=== PATIENT | male | born 1955 | race Caucasian/White ===

== ENCOUNTER → 2016-06-02 | Outpatient (CLI) | payer BC ==
[2016-06-02 07:39] LABS: ALT 31 U/L (21-72); AST 24 U/L (17-59); Alkaline Phosphatase 58 U/L (38-126); Anion Gap 12 mmol/L; Blood Urea Nitrogen 20 mg/dL (9-20); Calcium 9.4 mg/dL (8.4-10.2); Carbon Dioxide 28 mmol/L (22-30); Chloride 103 mmol/L (98-107); Cholesterol 116 mg/dL (<200); Glucose 55 mg/dL (74-99); HDL Cholesterol 35 mg/dL (40-60); Non-African American GFR(MDRD) >60 (>60 ml/min/1.73 sqM); Sodium 143 mmol/L (137-145); Total Bilirubin 0.8 mg/dL (0.2-1.3); Total Protein 7.2 g/dL (6.3-8.2); Triglycerides 75 mg/dL (<150)
[2016-06-02 12:31] LABS: Hemoglobin A1C 6.3 % (4.2-6.1)
== END | disposition home or self-care (01) ==
LOC: LABWHC1 06:41
PROVIDERS: ATTEND Internal Medicine
DX: E11.9 Type 2 diabetes mellitus without complications (principal); E78.5 Hyperlipidemia, unspecified; I10 Essential (primary) hypertension
CPT/HCPCS: 36415; 80053; 80061; 82306; 83036

== ENCOUNTER → 2016-08-25 | Outpatient (CLI) | payer BC ==
[2016-08-25 07:53] LABS: Anion Gap 10 mmol/L; Blood Urea Nitrogen 29 mg/dL (9-20); Calcium 9.7 mg/dL (8.4-10.2); Carbon Dioxide 27 mmol/L (22-30); Chloride 106 mmol/L (98-107); Glucose 122 mg/dL (74-99); Non-African American GFR(MDRD) >60 (>60 ml/min/1.73 sqM); Potassium 4.2 mmol/L (3.5-5.1); Sodium 143 mmol/L (137-145)
[2016-08-25 10:38] LABS: Hemoglobin A1C 6.6 % (4.2-6.1)
[2016-08-25 10:41] LABS: Prostate Specific Antigen 1.73 ng/mL (0.00-4.00)
== END | disposition home or self-care (01) ==
LOC: LABWHC1 06:57
PROVIDERS: ATTEND Internal Medicine
DX: Z00.00 Encounter for general adult medical examination without abnormal findings (principal); E11.9 Type 2 diabetes mellitus without complications; N40.0 Benign prostatic hyperplasia without lower urinary tract symptoms; E87.8 Other disorders of electrolyte and fluid balance, not elsewhere classified
CPT/HCPCS: 36415; 80048; 83036; 84153

== ENCOUNTER 2016-12-14 14:13 | Emergency (ER) | payer BC ==
[2016-12-14 14:18] VITALS: BP 166/72; PULSE 60; RESP 20; TEMP 98.1
--- NOTE | 2016-12-14 14:38 | ED ---
Skin/Abscess/FB HPI - General Chief complaint: Skin/Abscess/Foreign Body Stated complaint: blisters on feet/diabetic Source: patient Mode of arrival: ambulatory Limitations: no limitations - History of Present Illness Initial comments: Patient is a 61-year-old male who presents for evaluation for 2 blisters on his right first and second digits of his foot. Past medical history as below. [place] He states that he was walking/hiking more than he typically does. He is also in the [place]. States that there is a lot of sand intravenous toes of his water shoes that he was wearing. Last night he noticed blisters on his right foot first and second digits. There are bleeding. The blister seem to have ruptured. He came home today and came in for evaluation. He has a history of recurrent diabetic foot ulcers. 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 He denies any redness or real swelling to the right foot. No pain with palpation of the blisters of the ankle. He also denies any systemic symptoms. No fevers, chills, URI symptoms, shortness breath, cough, chest pain, change in appetite, nausea, vomiting, diarrhea, abdominal pain, pain or burning with urination. He has supplies for diabetic foot ulcers at home. He also has a walking boot which she has been wearing today. - Related Data Home Medications Medication Instructions Recorded Confirmed Lisinopril/Hydrochlorothiazide 1 tab PO DAILY 10/26/14 03/03/16 [Lisinopril-Hctz 20-12.5 mg Tab] Rosuvastatin [Crestor] 10 mg PO HS 10/26/14 03/03/16 metFORMIN HCL [Metformin HCl] 850 mg PO DAILY 10/26/14 03/03/16 Ascorbic Acid [Vitamin C] 1,000 mg PO DAILY 10/27/14 03/03/16 Cholecalciferol [Vitamin D3] 5,000 unit PO DAILY 10/27/14 03/03/16 Insulin Aspart [NovoLOG Flexpen] See Protocol SQ HS 10/27/14 03/03/16 Insulin Glargine [Lantus] 20 unit SQ BID 10/27/14 03/03/16 Vitamin E (Dl,Tocopheryl Acet) 400 unit PO DAILY 10/27/14 03/03/16 [Vitamin E] Insulin Aspart [NovoLOG Flexpen] 10 units SQ AC-TID 11/01/14 03/03/16 sitaGLIPtin [Januvia] 100 mg PO DAILY 12/21/14 03/03/16 Ascorbic Acid [Vitamin C] 500 mg PO HS 11/26/15 03/03/16 Aspirin EC [Ecotrin Low Dose] 81 mg PO DAILY 11/26/15 03/03/16 Fish Oil/Dha/Epa [Fish Oil 1,200 1 cap PO DAILY 11/26/15 03/03/16 mg Fish Oil] Previous Rx's Medication Instructions Recorded Ibuprofen [Motrin] 400 mg PO Q6HR PRN #0 tab 10/30/14 amLODIPine [Norvasc] 5 mg PO BID #60 tab 10/30/14 Cephalexin [Keflex] 500 mg PO Q6HR #56 cap 12/14/16 Sulfamethox-Tmp 800-160Mg [Bactrim 1 tab PO Q12HR #28 tab 12/14/16 DS 800-160 mg] Allergies Allergy/AdvReac Type Severity Reaction Status Date / Time No Known Allergies Allergy Verified 12/14/16 14:18 Review of Systems ROS Statement: Those systems with pertinent positive or pertinent negative responses have been documented in the HPI. ROS Other: All systems not noted in ROS Statement are negative. Past Medical History Past Medical History: Diabetes Mellitus, Hyperlipidemia, Hypertension Additional Past Medical History / Comment(s): Diabetic neuropathy, sleep apnea, central tremors, carpal tunnel bilateral hands chronic wounds to the lower extremities History of Any Multi-Drug Resistant Organisms: MRSA Date of last positivie culture/infection: 2012 MDRO Source:: R toe Past Surgical History: Orthopedic Surgery Additional Past Surgical History / Comment(s): left knee arthroscopically, piece of bone taken out of left 2nd toe for biopsy, rt foot callus removal, multiple debridements done to the lower extremity ulcers, Achilles tendon lengthening September [address] Alicea Past Anesthesia/Blood Transfusion Reactions: No Reported Reaction Past Psychological History: No Psychological Hx Reported Smoking Status: Former smoker Past Alcohol Use History: None Reported Past Drug Use History: None Reported - Past Family History Mother History Unknown: Yes Family Medical History: Cancer Additional Family Medical History / Comment(s): breast and colon ca Father History Unknown: Yes Family Medical History: Cancer Additional Family Medical History / Comment(s): stomach General Exam Limitations: no limitations General appearance: alert, in no apparent distress, other (Nontoxic appearing) Head exam: Present: atraumatic, normocephalic, normal inspection Eye exam: Present: normal appearance, PERRL, EOMI. Absent: scleral icterus, conjunctival injection, periorbital swelling ENT exam: Present: normal exam, mucous membranes moist Neck exam: Present: normal inspection. Absent: tenderness, meningismus, lymphadenopathy Respiratory exam: Present: normal lung sounds bilaterally. Absent: respiratory distress, wheezes, rales, rhonchi, stridor Cardiovascular Exam: Present: regular rate, normal rhythm, normal heart sounds. Absent: systolic murmur, diastolic murmur, rubs, gallop, clicks GI/Abdominal exam: Present: soft, normal bowel sounds. Absent: distended, tenderness, guarding, rebound, rigid Extremities exam: Present: normal inspection, full ROM, normal capillary refill. Absent: tenderness, pedal edema, joint swelling, calf tenderness Back exam: Present: normal inspection Neurological exam: Present: alert, oriented X3, CN II-XII intact Psychiatric exam: Present: normal affect, normal mood Skin exam: Present: warm, dry, intact, normal color, other (2 blisters on the dorsal aspect of his right first and second digits on the right foot. No surrounding cellulitis. Well pigmented tissue of the first and second digit. No purulent drainage.). Absent: rash Course Vital Signs 12/14/16 14:15 Temperature 98.1 F Pulse Rate 60 Respiratory 20 Rate Blood Pressure 166/72 O2 Sat by Pulse 98 Oximetry Medical Decision Making - Medical Decision Making 1425: Patient is a 61-year-old male who presents for evaluation for 2 blisters on his right foot. They are over the first and second digits. There is no surrounding cellulitis or purulent drainage from the blisters at this time. There is some loose skin that can cover the blister at this time. Distal pulses are intact. There are no systemic signs of infection. Had a lengthy discussion with the patient and the patient's at bedside. They are well prepared for diabetic foot ulcers at home and have a variety of antibacterial creams and non-adhesive bandages. They also are establish a wound care clinic. I offered blood work and blood cultures but patient refused. Comfortable with discharge home with both Keflex and Bactrim which she is well tolerated in the past. Encouraged yogurt or probiotic. Also encouraged tight glycemic control. Placed a nonadhesive bandage with bacitracin over the blisters. Wrapped. Placed in a walking boot. Will call wound care clinic tomorrow for reevaluation and follow-up. Discussed signs and symptoms on when to return to emergency department for further evaluation. Voiced understanding. Also recommended re-evaluation of his blood pressure as it was noted to be elevated. May need further titration of medications. Disposition Clinical Impression: Diabetic foot ulcer, Hypertension Disposition: HOME SELF-CARE Condition: Good Instructions: Diabetic Foot Ulcers (ED) Prescriptions: Cephalexin [Keflex] 500 mg PO Q6HR #56 cap Sulfamethox-Tmp 800-160Mg [Bactrim DS 800-160 mg] 1 tab PO Q12HR #28 tab Referrals: Nick Calvillo MD [Primary Care Provider] - 1-2 days Arnaldo Al MD [STAFF PHYSICIAN] - 1-2 days
== END 2016-12-14 14:49 | disposition home or self-care (01) ==
LOC: EC 14:13
DX: E11.621 Type 2 diabetes mellitus with foot ulcer (principal); L97.519 Non-pressure chronic ulcer of other part of right foot with unspecified severity; E11.40 Type 2 diabetes mellitus with diabetic neuropathy, unspecified; I10 Essential (primary) hypertension; Z87.891 Personal history of nicotine dependence; Z86.14 Personal history of Methicillin resistant Staphylococcus aureus infection; Z79.4 Long term (current) use of insulin; Z79.899 Other long term (current) drug therapy
CPT/HCPCS: 99283

== ENCOUNTER → 2016-12-15 | Outpatient (CLI) | payer BC ==
[2016-12-15 12:18] LABS: Hemoglobin A1C 6.2 % (4.2-6.1)
== END | disposition home or self-care (01) ==
LOC: LABWHC1 06:56
PROVIDERS: ATTEND Internal Medicine
DX: E11.9 Type 2 diabetes mellitus without complications (principal)
CPT/HCPCS: 36415; 82947; 83036

== ENCOUNTER → 2017-09-01 | Outpatient (CLI) | payer BC ==
[2017-09-01 07:19] LABS: Basophils % (A) 0 %; Eosinophils # (A) 0.1 k/uL (0-0.7); Eosinophils % (A) 3 %; HCT 39.9 % (39.0-53.0); HGB 13.8 gm/dL (13.0-17.5); Lymphocytes # (A) 1.2 k/uL (1.0-4.8); Lymphocytes % (A) 29 %; MCH 29.2 pg (25.0-35.0); MCHC 34.6 g/dL (31.0-37.0); MCV 84.4 fL (80.0-100.0); Mean Platelet Volume 7.2; Monocytes # (A) 0.4 k/uL (0-1.0); Monocytes % (A) 9 %; Neutrophils # (A) 2.4 k/uL (1.3-7.7); Neutrophils % (A) 58 %; Platelet Count 144 k/uL (150-450); RBC 4.72 m/uL (4.30-5.90); RDW 13.5 % (11.5-15.5); WBC 4.2 k/uL (3.8-10.6)
[2017-09-01 09:29] LABS: Erythrocyte Sedimentation Rate 13 mm/hr (0-15)
[2017-09-01 10:15] LABS: ALT 23 U/L (21-72); AST 29 U/L (17-59); Albumin 3.9 g/dL (3.5-5.0); Alkaline Phosphatase 60 U/L (38-126); Anion Gap 11 mmol/L; Blood Urea Nitrogen 22 mg/dL (9-20); C Reactive Protein <5.0 mg/L (<10.0); Calcium 9.6 mg/dL (8.4-10.2); Carbon Dioxide 28 mmol/L (22-30); Chloride 102 mmol/L (98-107); Cholesterol 123 mg/dL (<200); Creatine Kinase 483 U/L (55-170); Glucose 92 mg/dL (74-99); HDL Cholesterol 31 mg/dL (40-60); LDL Cholesterol,Calculated 66 mg/dL (0-99); Potassium 4.1 mmol/L (3.5-5.1); Sodium 141 mmol/L (137-145); Total Bilirubin 0.5 mg/dL (0.2-1.3); Total Protein 6.7 g/dL (6.3-8.2); Triglycerides 131 mg/dL (<150)
[2017-09-01 10:40] LABS: Prostate Specific Antigen 2.42 ng/mL (0.00-4.00)
[2017-09-01 15:04] LABS: Hemoglobin A1C 6.8 % (4.0-6.0)
== END | disposition home or self-care (01) ==
LOC: LABWHC1 06:44
PROVIDERS: ATTEND Internal Medicine
DX: E78.5 Hyperlipidemia, unspecified (principal); I10 Essential (primary) hypertension; E66.9 Obesity, unspecified; E55.9 Vitamin D deficiency, unspecified; E11.40 Type 2 diabetes mellitus with diabetic neuropathy, unspecified
CPT/HCPCS: 36415; 80053; 80061; 82306; 82550; 83036; 84153; 84443; 85025; 85652; 86140

== ENCOUNTER → 2017-12-16 | Outpatient (CLI) | payer BC | END | disposition home or self-care (01) | LOC: LABWHC1 06:49 | PROVIDERS: ATTEND Internal Medicine | DX: E11.9 Type 2 diabetes mellitus without complications (principal) | CPT/HCPCS: 36415; 82947; 83036 ==

== ENCOUNTER 2018-02-03 21:35 | Emergency (ER) | payer BC ==
[2018-02-03] MEDS ORDERED: SODIUM CHLORIDE 0.9% 1,000 ML IV STA (23:16)
[2018-02-03] MEDS ORDERED: ONDANSETRON 4 MG/2 ML VIAL IVP STA (23:16)
[2018-02-03] MEDS ORDERED: MAG HYDROX/AL HYDROX/SIMETH 30 ML, HYOSCYAMINE ELIXIR 10 ML, CIMETIDINE HCL 300 MG, LID... PO STA ×4 (23:16)
[2018-02-03 23:38] LABS: Basophils % (A) 0 %; Eosinophils # (A) 0.1 k/uL (0-0.7); Eosinophils % (A) 1 %; HCT 45.5 % (39.0-53.0); Lymphocytes # (A) 1.7 k/uL (1.0-4.8); Lymphocytes % (A) 22 %; MCH 28.5 pg (25.0-35.0); MCV 86.3 fL (80.0-100.0); Mean Platelet Volume 7.7; Monocytes # (A) 0.5 k/uL (0-1.0); Monocytes % (A) 7 %; Neutrophils # (A) 5.3 k/uL (1.3-7.7); Neutrophils % (A) 69 %; Platelet Count 156 k/uL (150-450); RBC 5.27 m/uL (4.30-5.90); RDW 13.8 % (11.5-15.5); WBC 7.6 k/uL (3.8-10.6)
[2018-02-03 23:48] LABS: ALT 27 U/L (21-72); AST 29 U/L (17-59); Albumin 4.3 g/dL (3.5-5.0); Alkaline Phosphatase 95 U/L (38-126); Anion Gap 12 mmol/L; Blood Urea Nitrogen 19 mg/dL (9-20); Carbon Dioxide 28 mmol/L (22-30); Chloride 99 mmol/L (98-107); Glucose 134 mg/dL (74-99); Lipase 58 U/L (23-300); Potassium 3.9 mmol/L (3.5-5.1); Sodium 139 mmol/L (137-145); Total Bilirubin 0.8 mg/dL (0.2-1.3); Total Protein 7.5 g/dL (6.3-8.2)
--- NOTE | 2018-02-03 23:58 | XR ---
EXAMINATION TYPE: XR [facility] DATE OF EXAM: 02/03/2018 COMPARISON: NONE HISTORY: Abdominal pain TECHNIQUE: 2 views upright FINDINGS: There is no sign of intestinal obstruction or pneumoperitoneum. Fecal pattern is normal. Th ere is no sign of a mass. There are no pathologic calcifications over the kidneys. Lung bases are antonia ar of consolidation. IMPRESSION: Nonacute abdomen.
[2018-02-04 00:24] LABS: Appearance,Urine Clear (Clear); Bilirubin,Urine Negative (Negative); Blood,Urine Negative (Negative); Color,Urine Light Yellow; Glucose,Urine (UA) Negative (Negative); Ketones,Urine 2+ (Negative); Leukocyte Esterase,Urine Negative (Negative); Nitrite,Urine Negative (Negative); Protein,Urine Negative (Negative); Urobilinogen,Urine <2.0 mg/dL (<2.0)
--- NOTE | 2018-02-04 01:01 | ED ---
General Adult HPI - General Chief complaint: Abdominal Pain Stated complaint: Abd pain Time Seen by Provider: 02/03/18 22:42 Source: patient Mode of arrival: ambulatory Limitations: no limitations - History of Present Illness Initial comments: Ian is a 62-year-old male presents to the emergency department today for burning epigastric pain. Patient reports he experienced pain similar to this approximately a month ago. He was evaluated by his primary care physician and advised to stop taking naproxen 500 mg twice a day and to start taking omeprazole. Patient reports that he did this for 2 weeks and had significant improvement in his abdominal discomfort. He subsequently followed up with his advised him to resume the naproxen 500 daily. And he stopped the omeprazole. Patient reports that since that time he's had intermittent burning epigastric pain. He reports that today he ate a salad for lunch the head multiple meats including salami and ham on it. He reports that after eating he developed some burning epigastric pain nausea and had 2 episodes of nonbloody nonbilious emesis. Patient returns to the emergency department today for evaluation of burning epigastric abdominal pain. Patient had his routine colonoscopy in the past but never had an EGD. Has no history of any inflammatory or irritable bowel disease. Patient denies any chest pain palpitations shortness of breath diaphoresis lightheadedness. - Related Data Home Medications Medication Instructions Recorded Confirmed metFORMIN HCL [Metformin HCl] 850 mg PO BID 10/26/14 12/14/16 Ascorbic Acid [Vitamin C] 1,000 mg PO DAILY 10/27/14 12/14/16 Cholecalciferol [Vitamin D3] 5,000 unit PO DAILY 10/27/14 12/14/16 Insulin Aspart [NovoLOG Flexpen] See Protocol SQ TID 10/27/14 12/14/16 Vitamin E (Dl,Tocopheryl Acet) 400 unit PO DAILY 10/27/14 12/14/16 [Vitamin E] Insulin Aspart [NovoLOG Flexpen] 10 units SQ AC-TID 11/01/14 12/14/16 sitaGLIPtin [Januvia] 100 mg PO DAILY 12/21/14 12/14/16 Aspirin EC [Ecotrin Low Dose] 81 mg PO DAILY 11/26/15 12/14/16 Hydrochlorothiazide [Hydrodiuril] 12.5 mg PO DAILY 12/14/16 12/14/16 Insulin Glargine,Hum.rec.anlog 25 unit SQ QAM 12/14/16 12/14/16 [Lantus Solostar] Insulin Glargine,Hum.rec.anlog 35 unit SQ HS 12/14/16 12/14/16 [Lantus Solostar] L.acidoph,Paracasei, B.lactis 1 cap PO DAILY 12/14/16 12/14/16 [Probiotic] Lisinopril [Zestril] 20 mg PO DAILY 12/14/16 12/14/16 Naproxen 500 mg PO Q12H 12/14/16 12/14/16 [place]-3 Acid Ethyl Esters [Lovaza] 1 gm PO BID 12/14/16 12/14/16 Primidone [Mysoline] 50 mg PO HS 12/14/16 12/14/16 Previous Rx's Medication Instructions Recorded amLODIPine [Norvasc] 5 mg PO BID #60 tab 10/30/14 Cephalexin [Keflex] 500 mg PO Q6HR #56 cap 12/14/16 Sulfamethox-Tmp 800-160Mg [Bactrim 1 tab PO Q12HR #28 tab 12/14/16 DS 800-160 mg] Pantoprazole Sodium [Protonix] 20 mg PO BID #30 tablet. 02/04/18 Sucralfate [Carafate] 1 gm PO ACHS #1 bottle 02/04/18 Allergies Allergy/AdvReac Type Severity Reaction Status Date / Time No Known Allergies Allergy Verified 02/03/18 21:49 Review of Systems ROS Statement: Those systems with pertinent positive or pertinent negative responses have been documented in the HPI. ROS Other: All systems not noted in ROS Statement are negative. Past Medical History Past Medical History: Diabetes Mellitus, Hyperlipidemia, Hypertension Additional Past Medical History / Comment(s): Diabetic neuropathy, sleep apnea, central tremors, carpal tunnel bilateral hands chronic wounds to the lower extremities History of Any Multi-Drug Resistant Organisms: MRSA Date of last positivie culture/infection: 2012 MDRO Source:: R toe Past Surgical History: Orthopedic Surgery Additional Past Surgical History / Comment(s): left knee arthroscopically, piece of bone taken out of left 2nd toe for biopsy, rt foot callus removal, multiple debridements done to the lower extremity ulcers, Achilles tendon lengthening September [address] Braaksma Past Anesthesia/Blood Transfusion Reactions: No Reported Reaction Past Psychological History: No Psychological Hx Reported Smoking Status: Former smoker Past Alcohol Use History: Occasional Past Drug Use History: None Reported - Past Family History Mother History Unknown: Yes Family Medical History: Cancer Additional Family Medical History / Comment(s): breast and colon ca Father History Unknown: Yes Family Medical History: Cancer Additional Family Medical History / Comment(s): stomach General Exam - General Exam Comments Initial Comments: GENERAL: Patient is well-developed and well-nourished. Patient is nontoxic and well- hydrated and is in no distress. HENT: Normocephalic, Atraumatic. Neck is soft and supple. No significant lymphadenopathy is noted. Oropharynx is clear. Moist mucous membranes. Neck has full range of motion without eliciting any pain. EYES: The sclera were anicteric and conjunctiva were pink and moist. Extraocular movements were intact and pupils were equal round and reactive to light. Eyelids were unremarkable. PULMONARY: Unlabored respirations. Good breath sounds bilaterally. No audible rales rhonchi or wheezing was noted. CARDIOVASCULAR: There is a regular rate and rhythm without any murmurs gallops or rubs. ABDOMEN: Soft and nontender with normal bowel sounds. No right upper quadrant abdominal tenderness SKIN: Skin is clear with no lesions or rashes and otherwise unremarkable. NEUROLOGIC: Patient is alert and oriented x3. Cranial nerves II through XII are grossly intact. Motor and sensory are also intact. Normal speech, volume and content. Symmetrical smile. MUSCULOSKELETAL: Normal extremities with adequate strength and full range of motion. No lower extremity swelling or edema. No calf tenderness. LYMPHATICS: No significant lymphadenopathy is noted PSYCHIATRIC: Normal psychiatric evaluation. Limitations: no limitations Limitations: no limitations Course Vital Signs 02/03/18 02/04/18 21:47 01:16 Temperature 98.4 F 98.5 F Pulse Rate 84 79 Respiratory 18 16 Rate Blood Pressure 154/79 158/80 O2 Sat by Pulse 96 96 Oximetry Medical Decision Making - Medical Decision Making Patient was seen and evaluated history was obtained from the patient and his at bedside patient with a history of apparent irritation or gastritis secondary to NSAID use. Symptoms resolved with discontinuation of NSAIDs in the initiation of omeprazole. Patient reports that he has subsequently started using NSAIDs again stopped using omeprazole and developed the pain. Pain was worse today after eating a fatty meal. Labs and imaging were ordered Labs a baseline KUB x-rays no free air under the diaphragm Patient was given a GI cocktail. He swallowed some of it, reported that it made him vomit. The felt much better afterwards. Results were discussed with the patient. I advised the patient to again discontinue the use of naproxen. I recommended he start Carafate and Protonix twice a day. Patient is were discussed with the patient and his at bedside. As well as dietary modifications including avoidance of fatty, greasy , foods, carbonated beverages or caffeine. I advised the patient to eat multiple small meals throughout the day daily. No large meals. No overdistention of his stomach. 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 All questions pertaining care were answered best my ability, patient was discharged home in stable condition. - Lab Data Result diagrams: 02/03/18 22:00 02/03/18 22:00 Lab Results 02/03/18 02/03/18 02/03/18 Range/Units 22:00 22:00 22:00 WBC 7.6 (3.8-10.6) k/uL RBC 5.27 (4.30-5.90) m/uL Hgb 15.0 (13.0-17.5) gm/dL Hct 45.5 (39.0-53.0) % MCV 86.3 (80.0-100.0) fL MCH 28.5 (25.0-35.0) pg MCHC 33.0 (31.0-37.0) g/dL RDW 13.8 (11.5-15.5) % Plt Count 156 (150-450) k/uL Neutrophils % 69 % Lymphocytes % 22 % Monocytes % 7 % Eosinophils % 1 % Basophils % 0 % Neutrophils # 5.3 (1.3-7.7) k/uL Lymphocytes # 1.7 (1.0-4.8) k/uL Monocytes # 0.5 (0-1.0) k/uL Eosinophils # 0.1 (0-0.7) k/uL Basophils # 0.0 (0-0.2) k/uL Sodium 139 (137-145) mmol/L Potassium 3.9 (3.5-5.1) mmol/L Chloride 99 (98-107) mmol/L Carbon Dioxide 28 (22-30) mmol/L Anion Gap 12 mmol/L BUN 19 (9-20) mg/dL Creatinine 0.85 (0.66-1.25) mg/dL Est GFR (CKD-EPI)AfAm >90 (>60 ml/min/1.73 sqM) Est GFR (CKD-EPI)NonAf >90 (>60 ml/min/1.73 sqM) Glucose 134 H (74-99) mg/dL Plasma Lactic Acid [place] (0.7-2.0) mmol/L Calcium 10.0 (8.4-10.2) mg/dL Total Bilirubin 0.8 (0.2-1.3) mg/dL AST 29 (17-59) U/L ALT 27 (21-72) U/L Alkaline Phosphatase 95 (38-126) U/L Troponin I 0.018 (0.000-0.034) ng/mL Total Protein 7.5 (6.3-8.2) g/dL Albumin 4.3 (3.5-5.0) g/dL Lipase 58 (23-300) U/L Urine Color Urine Appearance (Clear) Urine pH (5.0-8.0) Ur Specific [place] (1.001-1.035) Urine Protein (Negative) Urine Glucose (UA) (Negative) Urine Ketones (Negative) Urine Blood (Negative) Urine Nitrite (Negative) Urine Bilirubin (Negative) Urine Urobilinogen (<2.0) mg/dL Ur Leukocyte Esterase (Negative) 02/03/18 02/04/18 Range/Units 23:34 00:03 WBC (3.8-10.6) k/uL RBC (4.30-5.90) m/uL Hgb (13.0-17.5) gm/dL Hct (39.0-53.0) % MCV (80.0-100.0) fL MCH (25.0-35.0) pg MCHC (31.0-37.0) g/dL RDW (11.5-15.5) % Plt Count (150-450) k/uL Neutrophils % % Lymphocytes % % Monocytes % % Eosinophils % % Basophils % % Neutrophils # (1.3-7.7) k/uL Lymphocytes # (1.0-4.8) k/uL Monocytes # (0-1.0) k/uL Eosinophils # (0-0.7) k/uL Basophils # (0-0.2) k/uL Sodium (137-145) mmol/L Potassium (3.5-5.1) mmol/L Chloride (98-107) mmol/L Carbon Dioxide (22-30) mmol/L Anion Gap mmol/L BUN (9-20) mg/dL Creatinine (0.66-1.25) mg/dL Est GFR (CKD-EPI)AfAm (>60 ml/min/1.73 sqM) Est GFR (CKD-EPI)NonAf (>60 ml/min/1.73 sqM) Glucose (74-99) mg/dL Plasma Lactic Acid [place] 1.0 (0.7-2.0) mmol/L Calcium (8.4-10.2) mg/dL Total Bilirubin (0.2-1.3) mg/dL AST (17-59) U/L ALT (21-72) U/L Alkaline Phosphatase (38-126) U/L Troponin I (0.000-0.034) ng/mL Total Protein (6.3-8.2) g/dL Albumin (3.5-5.0) g/dL Lipase (23-300) U/L Urine Color Light Yellow Urine Appearance Clear (Clear) Urine pH 8.0 (5.0-8.0) Ur Specific [place] 1.010 (1.001-1.035) Urine Protein Negative (Negative) Urine Glucose (UA) Negative (Negative) Urine Ketones 2+ H (Negative) Urine Blood Negative (Negative) Urine Nitrite Negative (Negative) Urine Bilirubin Negative (Negative) Urine Urobilinogen <2.0 (<2.0) mg/dL Ur Leukocyte Esterase Negative (Negative) Disposition Clinical Impression: Epigastric abdominal pain Disposition: HOME SELF-CARE Condition: Good Instructions: Abdominal Pain (ED) Additional Instructions: Stop taking naproxen - do not take any anti-inflammatory medications including Aleve, naproxen, aspirin, Motrin, ibuprofen into your evaluated by gastroenterology Your diet should be a bland diet with no greasy or spicy foods, he should eat multiple small meals a day. Avoid overdistention of your stomach Prescriptions: Pantoprazole Sodium [Protonix] 20 mg PO BID #30 tablet. Sucralfate [Carafate] 1 gm PO ACHS #1 bottle Is patient prescribed a controlled substance at d/c from ED?: No Referrals: Nick Calvillo MD [Primary Care Provider] - 1-2 days
[2018-02-04 01:18] VITALS: BP 158/80; PULSE 79; RESP 16; TEMP 98.5
== END 2018-02-04 01:20 | disposition home or self-care (01) ==
LOC: EC 21:35
DX: R10.13 Epigastric pain (principal); R11.2 Nausea with vomiting, unspecified; E78.5 Hyperlipidemia, unspecified; I10 Essential (primary) hypertension; E11.40 Type 2 diabetes mellitus with diabetic neuropathy, unspecified; Z86.14 Personal history of Methicillin resistant Staphylococcus aureus infection; Z87.891 Personal history of nicotine dependence; Z98.890 Other specified postprocedural states; Z79.1 Long term (current) use of non-steroidal anti-inflammatories (NSAID); Z79.4 Long term (current) use of insulin; Z79.82 Long term (current) use of aspirin; Z79.899 Other long term (current) drug therapy
CPT/HCPCS: 36415; 74018; 80053; 81003; 83605; 83690; 84484; 85025; 96361; 96374; 99284

== ENCOUNTER → 2018-04-28 | Outpatient (CLI) | payer BC ==
[2018-04-28 16:13] LABS: Hemoglobin A1C 7.2 % (4.0-6.0)
== END | disposition home or self-care (01) ==
LOC: LABWHC1 07:06
PROVIDERS: ATTEND Internal Medicine
DX: E11.9 Type 2 diabetes mellitus without complications (principal)
CPT/HCPCS: 36415; 82947; 83036

== ENCOUNTER → 2018-09-08 | Outpatient (CLI) | payer BC ==
[2018-09-08 07:28] LABS: Basophils % (A) 0 %; Eosinophils # (A) 0.2 k/uL (0-0.7); Eosinophils % (A) 4 %; HCT 40.7 % (39.0-53.0); HGB 14.1 gm/dL (13.0-17.5); Lymphocytes # (A) 1.4 k/uL (1.0-4.8); Lymphocytes % (A) 30 %; MCHC 34.6 g/dL (31.0-37.0); MCV 86.8 fL (80.0-100.0); Mean Platelet Volume 7.4; Monocytes # (A) 0.3 k/uL (0-1.0); Monocytes % (A) 7 %; Neutrophils # (A) 2.6 k/uL (1.3-7.7); Neutrophils % (A) 57 %; Platelet Count 135 k/uL (150-450); RBC 4.69 m/uL (4.30-5.90); RDW 13.6 % (11.5-15.5); WBC 4.6 k/uL (3.8-10.6)
[2018-09-08 09:14] LABS: Erythrocyte Sedimentation Rate 11 mm/hr (0-15)
[2018-09-08 12:54] LABS: Calcium 9.2 mg/dL (8.7-10.3); Carbon Dioxide 30.1 mmol/L (21.6-31.8); Chloride 102 mmol/L (96-109); Creatine Kinase 209 U/L (35-257); Glucose 193 mg/dL (70-110); Potassium 4.1 mmol/L (3.5-5.5); Sodium 144 mmol/L (135-145); Total Protein 6.2 g/dL (6.2-8.2)
[2018-09-08 12:55] LABS: ALT 24 U/L (10-49); AST 25 U/L (14-35); Albumin/Globulin Ratio 1.95 (1.60-3.17); Alkaline Phosphatase 69 U/L (41-126); C Reactive Protein <0.4 mg/dL (0.0-0.8); Cholesterol 120 mg/dL (0-200); Globulin 2.1 g/dL (1.6-3.3); LDL Cholesterol,Calculated 61.4 mg/dL (0.0-131.0); Total Bilirubin 0.6 mg/dL (0.3-1.2)
== END | disposition home or self-care (01) ==
LOC: LABWHC1 06:57
PROVIDERS: ATTEND Internal Medicine
DX: N40.0 Benign prostatic hyperplasia without lower urinary tract symptoms (principal); E11.9 Type 2 diabetes mellitus without complications; E78.5 Hyperlipidemia, unspecified; I10 Essential (primary) hypertension; E66.9 Obesity, unspecified; E55.9 Vitamin D deficiency, unspecified
CPT/HCPCS: 36415; 80053; 80061; 82306; 82550; 83036; 84153; 84443; 85025; 85652; 86140

== ENCOUNTER 2018-10-11 17:00 | Inpatient (IN) | payer BC ==
[2018-10-11] MEDS ORDERED: VANCOMYCIN 2,000 MG in SODIUM CHLORIDE 0.9% 500 ML 500 ML IVPB STA (18:59)
--- NOTE | 2018-10-11 19:01 | ED ---
General Adult HPI - General Chief complaint: Wound/Laceration Stated complaint: Foot infection Time Seen by Provider: 10/11/18 18:20 Source: patient Mode of arrival: wheelchair Limitations: no limitations - History of Present Illness Initial comments: Dictation was produced using [employer] dictation software. please excuse any grammatical, word or spelling errors. Chief Complaint: 62-year-old male with chronic lower extremity ulcers 61 physician for worsening wounds. History of Present Illness: Patient is 62-year-old male multiple comorbidities presents with instruction by customs compliance specialist come to the emergency dep artment to be admitted with IV antibiotics. Patient has been following up with one specialist Dr. Al for the last couple weeks. He was evaluated at the clinic today told to come to the emergency department for concerns of worsening wound. Patient states that his wound has not been healing. He has history of diabetic foot ulcers. She also complains of some mild right ankle pain. States that it feels painful when he walks. Patient denies any constitutional symptoms. The ROS documented in this emergency department record has been reviewed and confirmed by me. Those systems with pertinent positive or negative responses have been documented in the HPI. All other systems are other negative and/or noncontributory. PHYSICAL EXAM: General Impression: Alert and oriented x3, not in acute distress HEENT: Normocephalic atraumatic, extra-ocular movements intact, pupils equal and reactive to light bilaterally, mucous membranes moist. Cardiovascular: Heart regular rate and rhythm, S1&S2 audible, no murmurs, rubs or gallops Chest: Lungs clear to auscultation bilaterally, no rhonchi, no wheeze, no rales Abdomen: Bowel sounds present, abdomen soft, non-tender, non-distended, no orga nomegaly Musculoskeletal: Pulses present and equal in all extremities, no peripheral edema Motor: no focal deficits noted Neurological: CN II-XII grossly intact, no focal motor or sensory deficits noted Skin: Bilateral foot wounds. Right foot has a 1 x 1 cm diabetic ulcer. Appears clean dry and intact Without Drainage. There Is Also Another 4 x 2 Cm Wound to the Left Lateral Plantar Surface of the Foot without Any Surrounding Erythema. Patient Has Mild Swelling to the Right Ankle. Psych: Normal affect and mood ED course: 62-year-old male with worsening bilateral foot wounds. He was sent in by his customer success specialist for inpatient admission. Vital signs upon arrival are within acceptable limits. Laboratory evaluation obtained. CBC metabolic panel is unremarkable. Patient's glucose of 103. Lactic acidosis of 2.3. Patient given some intravenous fluids. X-ray was obtained to evaluate for osteomyelitis. There is no signs to suggest osteomyelitis there is however soft tissue swelling around the site of the ulceration. Patient started on vancomycin. Patient be admitted discussed patient case with Dr. Calvillo. Infectious disease and vascular surgery consultation. - Related Data Home Medications Medication Instructions Recorded Confirmed metFORMIN HCL [Metformin HCl] 850 mg PO BID 10/26/14 10/11/18 Ascorbic Acid [Vitamin C] 1,000 mg PO DAILY 10/27/14 10/11/18 Cholecalciferol [Vitamin D3 (25 5,000 unit PO DAILY 10/27/14 10/11/18 Mcg = 1000 Iu)] Insulin Aspart [NovoLOG Flexpen] See Protocol SQ TID 10/27/14 10/11/18 Vitamin E (Dl,Tocopheryl Acet) 400 unit PO DAILY 10/27/14 10/11/18 [Vitamin E] Insulin Aspart [NovoLOG Flexpen] 10 units SQ AC-TID 11/01/14 10/11/18 Hydrochlorothiazide [Hydrodiuril] 12.5 mg PO DAILY 12/14/16 10/11/18 Insulin Glargine,Hum.rec.anlog 25 unit SQ QAM 12/14/16 10/11/18 [Lantus Solostar] Insulin Glargine,Hum.rec.anlog 35 unit SQ HS 12/14/16 10/11/18 [Lantus Solostar] Lisinopril [Zestril] 20 mg PO DAILY 12/14/16 10/11/18 [place]-3 Acid Ethyl Esters [Lovaza] 1 gm PO BID 12/14/16 10/11/18 Atorvastatin [Lipitor] 10 mg PO HS 10/11/18 10/11/18 Primidone [Mysoline] 75 mg PO HS 10/11/18 10/11/18 Previous Rx's Medication Instructions Recorded Pantoprazole Sodium [Protonix] 20 mg PO BID #30 tablet. 02/04/18 Allergies Allergy/AdvReac Type Severity Reaction Status Date / Time No Known Allergies Allergy Verified 10/11/18 18:24 Review of Systems ROS Statement: Those systems with pertinent positive or pertinent negative responses have been documented in the HPI. ROS Other: All systems not noted in ROS Statement are negative. Past Medical History Past Medical History: Diabetes Mellitus, Hyperlipidemia, Hypertension Additional Past Medical History / Comment(s): Diabetic neuropathy, sleep apnea, central tremors, carpal tunnel bilateral hands chronic wounds to the lower extremities History of Any Multi-Drug Resistant Organisms: MRSA Date of last positivie culture/infection: 2012 MDRO Source:: R toe Past Surgical History: Orthopedic Surgery Additional Past Surgical History / Comment(s): left knee arthroscopically, piece of bone taken out of left 2nd toe for biopsy, rt foot callus removal, multiple debridements done to the lower extremity ulcers, Achilles tendon lengthening September [address] Alicea Past Anesthesia/Blood Transfusion Reactions: No Reported Reaction Past Psychological History: No Psychological Hx Reported Smoking Status: Former smoker Past Alcohol Use History: Occasional Past Drug Use History: None Reported - Past Family History Mother History Unknown: Yes Family Medical History: Cancer Additional Family Medical History / Comment(s): breast and colon ca Father History Unknown: Yes Family Medical History: Cancer Additional Family Medical History / Comment(s): stomach General Exam Limitations: no limitations Course Vital Signs 10/11/18 17:24 Temperature 98.7 F Pulse Rate 65 Respiratory 19 Rate Blood Pressure 147/75 O2 Sat by Pulse 98 Oximetry Medical Decision Making - Lab Data Result diagrams: 10/11/18 19:15 10/11/18 19:15 Lab Results 10/11/18 10/11/18 10/11/18 Range/Units 19:15 19:15 19:15 WBC 7.8 (3.8-10.6) k/uL RBC 4.85 (4.30-5.90) m/uL Hgb 14.0 (13.0-17.5) gm/dL Hct 41.0 (39.0-53.0) % MCV 84.5 (80.0-100.0) fL MCH 28.8 (25.0-35.0) pg MCHC 34.1 (31.0-37.0) g/dL RDW 14.1 (11.5-15.5) % Plt Count 171 (150-450) k/uL Neutrophils % 70 % Lymphocytes % 18 % Monocytes % 8 % Eosinophils % 2 % Basophils % 0 % Neutrophils # 5.5 (1.3-7.7) k/uL Lymphocytes # 1.4 (1.0-4.8) k/uL Monocytes # 0.6 (0-1.0) k/uL Eosinophils # 0.2 (0-0.7) k/uL Basophils # 0.0 (0-0.2) k/uL Sodium 137 (137-145) mmol/L Potassium 4.8 (3.5-5.1) mmol/L Chloride 102 (98-107) mmol/L Carbon Dioxide 24 (22-30) mmol/L Anion Gap 11 mmol/L BUN 19 (9-20) mg/dL Creatinine 0.77 (0.66-1.25) mg/dL Est GFR (CKD-EPI)AfAm >90 (>60 ml/min/1.73 sqM) Est GFR (CKD-EPI)NonAf >90 (>60 ml/min/1.73 sqM) Glucose 193 H (74-99) mg/dL Plasma Lactic Acid Khalif 2.3 H* (0.7-2.0) mmol/L Calcium 9.2 (8.4-10.2) mg/dL Disposition Clinical Impression: Foot ulcer Disposition: ADMITTED IP TO THIS HOSP Condition: Fair Referrals: Nick Calvillo MD [Primary Care Provider] - 1-2 days Decision Time: 20:35
--- NOTE | 2018-10-11 19:49 | XR ---
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 There are bilateral plantar and Achilles calcaneal spurs. I see no acute fracture nor dislocation . There is multiple hammertoe deformity bilaterally. I see no focal bone destruction. There is vascul ar calcification. 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 There is minimal soft tissue air bubbles and soft tissue swelling at the left fifth MP joint. IMPRESSION: Soft tissue swelling at the left fifth MP joint could relate to cellulitis and ulceration .. Multiple hammertoe deformity. No specific sign of osteomyelitis.
[2018-10-11 20:17] LABS: African American GFR (CKD) >90 (>60 ml/min/1.73 sqM); Anion Gap 11 mmol/L; Blood Urea Nitrogen 19 mg/dL (9-20); Calcium 9.2 mg/dL (8.4-10.2); Carbon Dioxide 24 mmol/L (22-30); Chloride 102 mmol/L (98-107); Glucose 193 mg/dL (74-99); Potassium 4.8 mmol/L (3.5-5.1); Sodium 137 mmol/L (137-145)
[2018-10-11 20:26] LABS: Basophils % (A) 0 %; Eosinophils # (A) 0.2 k/uL (0-0.7); Eosinophils % (A) 2 %; Lymphocytes # (A) 1.4 k/uL (1.0-4.8); Lymphocytes % (A) 18 %; MCH 28.8 pg (25.0-35.0); MCHC 34.1 g/dL (31.0-37.0); MCV 84.5 fL (80.0-100.0); Mean Platelet Volume 7.6; Monocytes # (A) 0.6 k/uL (0-1.0); Monocytes % (A) 8 %; Neutrophils # (A) 5.5 k/uL (1.3-7.7); Neutrophils % (A) 70 %; Platelet Count 171 k/uL (150-450); RBC 4.85 m/uL (4.30-5.90); RDW 14.1 % (11.5-15.5); WBC 7.8 k/uL (3.8-10.6)
[2018-10-11] MEDS ORDERED: SODIUM CHLORIDE 0.9% 500 ML 500 ML IV STA (20:31)
[2018-10-11] MEDS ORDERED: NALOXONE 0.4 MG/ML 1 ML VIAL IV PRN (20:35)
[2018-10-11] MEDS ORDERED: NON-FORMULARY DRUG (Omega-3 Acid Ethyl Esters [Lovaza] 1 GM) PO SCH (21:00)
[2018-10-11] MEDS ORDERED: INSULIN DETEMIR (LEVEMIR) 100 UNIT/ML SYR SQ SCH (21:00)
[2018-10-11] MEDS ORDERED: PRIMIDONE 50 MG TAB PO SCH (21:00)
[2018-10-11 22:48] LABS: Glucose,Whole Blood 202 mg/dL (75-99)
[2018-10-11] MEDS: ACETAMINOPHEN TAB 325 MG TAB PO PRN (23:02)
[2018-10-11] MEDS: metFORMIN 850 MG TAB PO SCH (23:02)
[2018-10-11] MEDS: MELATONIN 5 MG TABLET PO SCH (23:02)
[2018-10-11] MEDS: ATORVASTATIN 10 MG TAB PO SCH (23:02)
[2018-10-11] MEDS: PRIMIDONE 50 MG TAB PO SCH (23:03)
[2018-10-11] MEDS: INSULIN DETEMIR (LEVEMIR) 100 UNIT/ML SYR SQ SCH (23:03)
[2018-10-12] MEDS: VANCOMYCIN 2,000 MG in SODIUM CHLORIDE 0.9% 500 ML 500 ML IVPB SCH ×2 (05:49→17:31)
[2018-10-12 07:48] LABS: Glucose,Whole Blood 152 mg/dL (75-99)
[2018-10-12] MEDS: INSULIN ASPART (NovoLOG) 100 UNIT/ML VIAL SQ SCH ×3 (08:53→17:31)
[2018-10-12] MEDS: HYDROCHLOROTHIAZIDE 12.5 MG CAP PO SCH (08:53)
[2018-10-12] MEDS: metFORMIN 850 MG TAB PO SCH ×2 (08:53→17:56)
[2018-10-12] MEDS: LISINOPRIL 20 MG TAB PO SCH (08:54)
[2018-10-12] MEDS: PANTOPRAZOLE 40 MG TABLET PO SCH (08:54)
[2018-10-12] MEDS: INSULIN DETEMIR (LEVEMIR) 100 UNIT/ML SYR SQ SCH ×2 (08:54→21:57)
[2018-10-12] MEDS: CHOLECALCIFEROL 1,000 UNIT TAB PO SCH (08:54)
[2018-10-12] MEDS: ASCORBIC ACID 500 MG TAB PO SCH (08:54)
[2018-10-12] MEDS: VITAMIN E (DL,TOCOPHERYL ACET) 400 UNIT CAP PO SCH (08:55)
[2018-10-12] MEDS ORDERED: INSULIN DETEMIR (LEVEMIR) 100 UNIT/ML SYR SQ SCH (09:00)
[2018-10-12 11:37] LABS: Glucose,Whole Blood 286 mg/dL (75-99)
[2018-10-12 14:11] VITALS: BMI 37.2
[2018-10-12] MEDS: PIPERACILLIN-TAZOBACTAM 3.375 GM in SODIUM CHLORIDE 0.9% 100 ML IVPB SCH ×2 (16:07→21:57)
[2018-10-12 17:14] LABS: Glucose,Whole Blood 137 mg/dL (75-99)
[2018-10-12 19:37] LABS: Glucose,Whole Blood 179 mg/dL (75-99)
[2018-10-12] MEDS: ATORVASTATIN 10 MG TAB PO SCH (21:56)
[2018-10-12] MEDS: HEPARIN SODIUM,PORCINE 5,000 UNIT/ML 1 ML VIAL SQ SCH (21:56)
[2018-10-12] MEDS: PRIMIDONE 50 MG TAB PO SCH (21:57)
[2018-10-12] MEDS: ACETAMINOPHEN TAB 325 MG TAB PO PRN (21:57)
[2018-10-12] MEDS: MELATONIN 5 MG TABLET PO SCH (21:57)
--- NOTE | 2018-10-12 23:00 | P.CONS ---
History of Present Illness - Reason for Consult Consult date: 10/12/18 - Chief Complaint Diabetic foot ulcers - History of Present Illness 62-year-old male well-known to the service from his prior hospitalizations and her the wound healing Center for his diabetic foot infections. In the past he developed the sudden change to his right foot fourth toe. It was a gangrenous change requiring the amputation to the site. He is followed by Dr. Alicea in the outpatient setting Further evaluation and care of his diabetic foot wounds and needs for tendon em gthening procedures. These have occurred in his been doing very well since the toe amputation. He said approximately a 50 pound weight loss and overall is feeling somewhat better. He does wear diabetic shoes and inserts as per his balloon dipper. He relates that he's had some minimal wounds to his feet that suddenly have changed developed the ulceration to the right foot great toe and left foot lateral surface of the fifth metatarsal head. He has been seen in the wound healing Center, there was no evident change in the status he was debrided cultures were obtained and he was admitted to hospital. Review of Systems HEENT:Denies headache or acute visual change. Denies sinus or mouth discomforts. Denies neck stiffness or pain. Denies significant oral cavity bianka n. Denies difficulty on swallowing. Lungs: Denies significant shortness of breath, cough, sputum production, or hemoptysis. Cardiovascular: Denies significant shortness of breath, chest pain, chest wall pain, orthopnea, dyspnea on exertion, syncope Gastrointestinal:Denies nausea, vomiting, diarrhea, constipation, hematemesis, melena, hematochezia. No no significant change of bowel habit noticed. Musculoskeletal: denies significant myalgias or arthralgias. No new joint swelling. Denies new back pain. Skin: new Ulcerations is related per the HPI Neuro: Denies headache or visual change. Denies any new onset weakness or difficulty with ambulation. Denies falls or seizures. Psychiatric:Denies anxiety or depression. Endocrine: Denies significant fatigue, denies significant weight loss or weight gain. Past Medical History Past Medical History: Diabetes Mellitus, Hyperlipidemia, Hypertension Additional Past Medical History / Comment(s): Diabetic neuropathy, sleep apnea, central tremors, carpal tunnel bilateral hands chronic wounds to the lower extremities History of Any Multi-Drug Resistant Organisms: MRSA Year Discovered:: 2012 MDRO Source:: R toe Past Surgical History: Orthopedic Surgery Additional Past Surgical History / Comment(s): left knee arthroscopically, piece of bone taken out of left 2nd toe for biopsy, rt foot callus removal, multiple debridements done to the lower extremity ulcers, Achilles tendon lengthening September [address] Alicea Past Anesthesia/Blood Transfusion Reactions: No Reported Reaction Past Psychological History: No Psychological Hx Reported Smoking Status: Former smoker Past Alcohol Use History: Occasional Additional Past Alcohol Use History / Comment(s): Patient was a smoker and started at 8 years of age. He was up to 3 packs per day when he quit at age 28. He denies any medical marijuana, marijuana, street drug use. He drinks alcohol occasionally. He works as an chief accountant. He lives at home with his . There are no pets in the home. He has traveled out [place] with no illnesses with his Past Drug Use History: None Reported - Past Family History Mother History Unknown: Yes Family Medical History: Cancer Additional Family Medical History / Comment(s): breast and colon ca Father History Unknown: Yes Family Medical History: Cancer Additional Family Medical History / Comment(s): stomach Medications and Allergies Home Medications and Allergies Comment(s): Current Medications Acetaminophen (Tylenol Tab) 650 mg PO Q4HR PRN PRN Reason: Fever and/ or Pain Last Admin: 10/12/18 21:57 Dose: 650 mg Documented by: Ascorbic Acid (Vitamin C) 1,000 mg PO DAILY [facility] Last Admin: 10/12/18 08:54 Dose: 1,000 mg Documented by: Atorvastatin Calcium (Lipitor) 10 mg PO HS [facility] Last Admin: 10/12/18 21:56 Dose: 10 mg Documented by: Cholecalciferol (Vitamin D3 (25 Mcg = 1000 Iu)) 5,000 unit PO DAILY [facility] Last Admin: 10/12/18 08:54 Dose: 5,000 unit Documented by: Heparin Sodium (Porcine) (Heparin) 5,000 unit SQ Q12HR [facility] Last Admin: 10/12/18 21:56 Dose: 5,000 unit Documented by: Hydrochlorothiazide (Hydrodiuril) 12.5 mg PO DAILY [facility] Last Admin: 10/12/18 08:53 Dose: 12.5 mg Documented by: Vancomycin HCl 2,000 mg/ (Sodium Chloride) 500 mls @ 166.667 mls/hr IVPB Q12H [facility] Last Admin: 06/04/19 17:31 Dose: 166.667 mls/hr Documented by: Piperacillin Sod/Tazobactam (Sod 3.375 gm/ Sodium Chloride) 100 mls @ 25 mls/hr IVPB Q8HR@0000,0400,2000 [facility] Last Admin: 10/12/18 21:57 Dose: 25 mls/hr Documented by: Insulin Aspart (Novolog) 10 unit SQ AC-TID [facility] Last Admin: 10/12/18 17:31 Dose: 10 unit Documented by: Insulin Detemir (Levemir) 10 unit SQ QAM [facility] Last Admin: 10/12/18 08:54 Dose: 10 unit Documented by: Insulin Detemir (Levemir) 25 unit SQ HS [facility] Last Admin: 10/12/18 21:57 Dose: 25 unit Documented by: Lisinopril (Zestril) 20 mg PO DAILY [facility] Last Admin: 10/12/18 08:54 Dose: 20 mg Documented by: Melatonin (Melatonin) 5 mg PO [facility] Last Admin: 10/12/18 21:57 Dose: 5 mg Documented by: Metformin HCl (Glucophage) 850 mg PO BID-W/MEALS [facility] Last Admin: 10/12/18 17:56 Dose: 850 mg Documented by: Naloxone HCl (Narcan) 0.2 mg IV Q2M PRN PRN Reason: Opioid Reversal Non-Formulary Medication (Insulin Aspart [Novolog Flexpen]) 2 - 10 unit SQ TID [facility] Pantoprazole Sodium (Protonix) 40 mg PO AC-BRKFST [facility] Last Admin: 10/12/18 08:54 Dose: 40 mg Documented by: Primidone (Mysoline) 25 mg PO [facility] Last Admin: 10/12/18 21:57 Dose: 25 mg Documented by: Vitamin E (Vitamin E) 400 unit PO DAILY [facility] Last Admin: 10/12/18 08:55 Dose: 400 unit Documented by: Home Medications Medication Instructions Recorded Confirmed Type metFORMIN HCL [Metformin HCl] 850 mg PO BID 10/26/14 10/11/18 History Ascorbic Acid [Vitamin C] 1,000 mg PO DAILY 10/27/14 10/11/18 History Cholecalciferol [Vitamin D3 (25 5,000 unit PO DAILY 10/27/14 10/11/18 History Mcg = 1000 Iu)] Insulin Aspart [NovoLOG Flexpen] See Protocol SQ TID 10/27/14 10/11/18 History Vitamin E (Dl,Tocopheryl Acet) 400 unit PO DAILY 10/27/14 10/11/18 History [Vitamin E] Insulin Aspart [NovoLOG Flexpen] 10 units SQ AC-TID 11/01/14 10/11/18 History Hydrochlorothiazide [Hydrodiuril] 12.5 mg PO DAILY 12/14/16 10/11/18 History Insulin Glargine,Hum.rec.anlog 25 unit SQ QAM 12/14/16 10/11/18 History [Lantus Solostar] Insulin Glargine,Hum.rec.anlog 35 unit SQ HS 12/14/16 10/11/18 History [Lantus Solostar] Lisinopril [Zestril] 20 mg PO DAILY 12/14/16 10/11/18 History [place]-3 Acid Ethyl Esters [Lovaza] 1 gm PO BID 12/14/16 10/11/18 History Pantoprazole Sodium [Protonix] 20 mg PO BID #30 tablet.dr 02/04/18 10/11/18 Rx Atorvastatin [Lipitor] 10 mg PO HS 10/11/18 10/11/18 History Primidone [Mysoline] 75 mg PO HS 10/11/18 10/11/18 History Allergies Allergy/AdvReac Type Severity Reaction Status Date / Time No Known Allergies Allergy Verified 10/11/18 18:24 Physical Exam Vitals: Vital Signs Temp Pulse Resp BP Pulse Ox 10/12/18 19:00 98.8 F 57 L 16 121/69 99 10/12/18 08:00 57 L 10/12/18 07:32 98.4 F 57 L 16 144/74 97 10/12/18 01:08 98.8 F 67 15 114/63 97 Intake and Output 10/12/18 10/12/18 10/12/18 06:59 14:59 22:59 Intake Total 1000 Balance 1000 Intake: Intake, IV Titration 1000 Amount Sodium Chloride 0.9% 500 500 ml 500 ml @ 999 mls/hr IV .Q31M [facility] Rx#:[id number] Vancomycin 2,000 mg In 500 Sodium Chloride 0.9% 500 ml 500 ml @ 166.667 mls/ hr IVPB ONCE [facility] Rx#: [id number] Other: Voiding Method Toilet Urinal # Voids 2 2 Weight 131.542 kg Pleasant 62-year-old male not in distress HEENT: Anicteric conjunctiva are pink and moist nasal mucosa grossly intact without significant lesions, there is no thrush. Neck: The neck is supple without significant lymphadenopathy or thyromegaly. Lungs: Good bilateral air entry without significant crackles or wheezing. There is no significant bronchial sounds. There is no egophony or dullness. Heart: Regular rate and rhythm with an audible S1-S2, no S3 no S4. There is no significant murmur click or rub, PMI was nondisplaced. Abdomen: Positive bowel sounds soft and nontender without palpable masses or organomegaly. There was no guarding or rebound. Extremities: The upper extremities have excellent pulses they are symmetric, no significant petechiae or telangiectasia. No splinter hemorrhages were noted. Lower extremities evidence of some trace edema. Please see nursing photography regarding the ulcerations to the right great toe plantar, left plantar surface fifth metatarsal head. The Aquacel silver this present is removed and moist dressings are applied. The feet are warm to palpation. Neuro: Awake alert oriented to person place and time. There are no acute new gross focal sensory motor deficits. But does have decreased sensation over the bilateral feet. Results CBC & Chem 7: 10/11/18 19:15 10/11/18 19:15 Labs: Abnormal Lab Results - Last 24 Hours (Table) 10/11/18 10/12/18 10/12/18 Range/Units 22:45 07:34 11:35 POC Glucose (mg/dL) 202 H 152 H 286 H (75-99) mg/dL 10/12/18 10/12/18 Range/Units 17:10 19:35 POC Glucose (mg/dL) 137 H 179 H (75-99) mg/dL Microbiology - Last 24 Hours (Table) 10/11/18 19:15 Blood Culture - Preliminary Blood No Growth after 24 hours Laboratory Results WBC 7.8 k/uL (3.8-10.6) 10/11/18 19:15 RBC 4.85 m/uL (4.30-5.90) 10/11/18 19:15 Hgb 14.0 gm/dL (13.0-17.5) 10/11/18 19:15 Hct 41.0 % (39.0-53.0) 10/11/18 19:15 MCV 84.5 fL (80.0-100.0) 10/11/18 19:15 MCH 28.8 pg (25.0-35.0) 10/11/18 19:15 MCHC 34.1 g/dL (31.0-37.0) 10/11/18 19:15 RDW 14.1 % (11.5-15.5) 10/11/18 19:15 Plt Count 171 k/uL (150-450) 10/11/18 19:15 Neutrophils % 70 % 10/11/18 19:15 Lymphocytes % 18 % 10/11/18 19:15 Monocytes % 8 % 10/11/18 19:15 Eosinophils % 2 % 10/11/18 19:15 Basophils % 0 % 10/11/18 19:15 Neutrophils # 5.5 k/uL (1.3-7.7) 10/11/18 19:15 Lymphocytes # 1.4 k/uL (1.0-4.8) 10/11/18 19:15 Monocytes # 0.6 k/uL (0-1.0) 10/11/18 19:15 Eosinophils # 0.2 k/uL (0-0.7) 10/11/18 19:15 Basophils # 0.0 k/uL (0-0.2) 10/11/18 19:15 Sodium 137 mmol/L (137-145) 10/11/18 19:15 Potassium 4.8 mmol/L (3.5-5.1) 10/11/18 19:15 Chloride 102 mmol/L (98-107) 10/11/18 19:15 Carbon Dioxide 24 mmol/L (22-30) 10/11/18 19:15 Anion Gap 11 mmol/L 10/11/18 19:15 BUN 19 mg/dL (9-20) 10/11/18 19:15 Creatinine 0.77 mg/dL (0.66-1.25) 10/11/18 19:15 Est GFR (CKD-EPI)AfAm >90 (>60 ml/min/1.73 sqM) 10/11/18 19:15 Est GFR (CKD-EPI)NonAf >90 (>60 ml/min/1.73 sqM) 10/11/18 19:15 Glucose 193 mg/dL (74-99) H 10/11/18 19:15 POC Glucose (mg/dL) 179 mg/dL (75-99) H 10/12/18 19:35 POC Glu [employer] Money Advisor Julian Mayer 10/12/18 19:35 Lactic Ac Sepsis Rflx Y 10/11/18 20:23 Plasma Lactic Acid Khalif 1.0 mmol/L (0.7-2.0) 10/11/18 23:29 Calcium 9.2 mg/dL (8.4-10.2) 10/11/18 19:15 Microbiology 10/11/18 19:15 Blood Blood Culture - Preliminary No Growth after 24 hours Assessment and Plan (1) Diabetic foot ulcer Current Visit: No Status: Acute Code(s): E11.621 - TYPE 2 DIABETES MELLITUS WITH FOOT ULCER SNOMED Code(s): 496989033 (2) Diabetic ulcer of right foot associated with diabetes mellitus due to underlying condition, with fat layer exposed Narrative/Plan: 62-year-old male who has a history of diabetes mellitus prior left fourth toe amputation from a gangrenous change to the toe. Is doing relatively well until the onset of some ulcerations to the plantar surface of the bilateral feet. They have no markedly worsened and he has been admitted for further intervention. Based on prior culture results Zosyn was added to vancomycin based on prior culture with Pseudomonas. Deep tissue cultures from the debridement from the wound center yesterday are pending. Vascular surgery is following and will provide further debridement is needed. Bone scan has been requested to evaluate for possible underlying osteomyelitis to the ulcer sites. Patient will need enhance offloading in the interim to allow healing of the sites. We'll be following wound healing center after his discharge. Recent laboratories to reveal the hemoglobin A1c of 7 and normal inflammatory parameters. Patient is aware that if osteomyelitis is found will require outpatient intravenous antibiotic therapy. Current Visit: Yes Status: Acute Code(s): E08.621 - DIABETES MELLITUS DUE TO UNDERLYING CONDITION W FOOT ULCER; L97.512 - NON-PRS CHRONIC ULCER OTH PRT RIGHT FOOT W FAT LAYER EXPOSED SNOMED Code(s): 893253106
--- NOTE | 2018-10-12 23:47 | HP ---
HISTORY AND PHYSICAL He is a 62-year-old. Date of 1955. Male. Room #470, bed 1 in the 4th floor [facility]. He is a FULL CODE. He is 6 foot 2 inches height. Weight 131.542 kg. His BSA 2.4 m2. BMI 37.2 kg/m2. ALLERGIES: Unknown. The patient was admitted through the Wound Clinic in the hospital as he had deep debridement by Dr. Arnaldo Al and subsequently he felt that his ulcers in the foot needs for admission in the hospital as an inpatient for the underlying infection and cellulitis of both feet, deep diabetic foot ulcers. The patient subsequently sent from the Wound Clinic to the emergency room where he was seen by Dr. Johns in the ER and also x-ray of the foot was obtained in the ER. 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 Also, he had bilateral plantar and Achillis calcaneal spurs. No fracture or dislocation. There is multiple hammertoe deformity bilaterally and no bone destruction. 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 With the impression soft tissue swelling at the 5th metacarpophalangeal joint and related to cellulitis and ulceration with multiple hammertoe deformity and at this time no specific sign of osteomyelitis. As seen by the ER physician and with the with the complaint that wound care was applied to him for further debridement, he arrived by wheelchair from the wound clinic to the emergency room and with the history that the patient at 62 years old, he has multiple comorbidity presented with instruction by the piping design specialist come to the emergency room to be admitted for IV antibiotic. With the patient, Dr. Al, the vascular surgeon and he is doing the wound care as well. He evaluated the patient in the clinic today and told him to come to the emergency department for concern about worsening of the wound and they have pictures on the chart. They also stated that the wound is not healing well and he has to have debridement for the deep diabetic foot ulcer and salvage of the foot both sides, the right and the left. The feet were painful on the ankle joint and at the time as he arrived they started him on the antibiotic. Subsequently the patient admitted to the hospital on the surgical floor. REVIEW OF THE SYSTEM: He had no chest pain and no cough or expectoration. No palpitation. No previous history of myocardial infarction. His abdomen, no diarrhea or constipation or abdominal pain. Musculoskeletal, he is 6 feet 2 inches and has diabetes chronically. However, it has been controlled on the past 6 months. However, his ulcers of the diabetic foot has been reopened again. No peripheral edema, but he had a previous surgery on the foot by Dr. Alicea, the orthopaedic foot doctor as well. He has a wound right foot 1 multiplied by 1 cm diabetic ulcer and appeared to be dry and without drainage and he has also 4 x 2 cm wound on the left lateral plantar surface of the foot without surrounding erythema and there is soft tissue swelling of the instep of the foot. The psychiatry, he has normal mood. Found in his laboratory that his lactic acidosis with the lactic acid 2.3 was elevated. His CBC was unremarkable and other laboratory was unremarkable as well. X-ray was obtained as mentioned above. The patient started on vancomycin until Dr. Mingo Smith, infectious Disease consultation, is to be evaluated and choice of the best antibiotic to cover the not healing wound. His medication is currently: 1. Metformin 850 mg b.i.d. 2. Ascorbic acid 1000 mg daily. 3. Vitamin D3, 5000 units daily with a history of underlying vitamin D deficiency. 4. 400 units of vitamin B. 5. He is on insulin, NovoLog FlexPen 10 units t.i.d. 6. Hydrochlorothiazide 12.5 mg daily. 7. He is on Lantus 25 units subcu in a.m. and 35 units of Lantus subcu at bedtime. 8. He is on lisinopril 20 mg daily. 9. [place]-3, 1 g twice a day. 10.Atorvastatin 10 mg at bedtime. 11.Mysoline 75 mg from his neurologist, Dr. Ca and he has taken 75 mg at bedtime for underlying essential tremors which he started within the last 6 months. He was evaluated as outpatient. 12.He is also on Protonix 20 mg b.i.d. for GERD disease. He has no known allergy. REVIEW OF SYSTEMS: The 14 bullet has been reviewed. Other than the musculoskeletal associated with the diabetic foot ulcer was only abnormalities and that is where he was getting the wound treatment and subsequently admitted for the IV antibiotic. PAST MEDICAL HISTORY: He has a history of diabetes, hyperlipidemia, hypertension, multiple surgery of his feet to avoid amputation. However, he had some toes amputated because of the diabetic ulcer and care for the foot. He has also history of diabetic neuropathy and sleep apnea and essential tremors and carpal tunnel bilaterally of the hand, chronic wound of the lower extremities. He has history of MRSA, however, that was in 2012. Currently we do not have any declaration of MRSA in his wound. He had a past history of orthopedic surgery with the tendon. He had history of left knee arthroscopy and he had a biopsy on the 2nd toe of the left foot. He has also right foot callus removed. Multiple debridement done of the lower extremities diabetic ulcer. He had a tendon Achillis lengthen[place] [address] Alicea. Alcohol intake is occasionally rare and he was a former smoker. No psychological disease. He had no history of drug use. 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 FAMILY HISTORY: His mother has cancer of the breast and there is also colon cancer in the family. He is and he has his children. No for further details. PHYSICAL EXAMINATION: On admission on 10/11/18, temperature 98.7, pulse 65, respiratory rate 19, blood pressure 147/75 with the pulse ox on room air was 98%. That as he presented in the emergency room and at that time he had laboratory indicating that his white count 7.8 with hemoglobin 14 and hematocrit 41.0 and the platelet count 171. His white count is 7.8 on admission, hemoglobin 14, hematocrit 41. On the chemistry, his sodium was 137, potassium 4.8, chloride 102, carbon dioxide 24. His anion gap is 11. BUN of 19 and creatinine 0.77. His estimated glomerular filtration rate for non- more than 90 stable and his blood sugar because of diabetic is 193. However, they found that his lactic acid is 2.3 with the limit 2 and the patient started on gentle hydration. With the physical exam, the patient is conscious, alert, oriented. No acute respiratory distress. His vital signs indicating that today his temperature on 10/12/2018, temperature was 98.4 Fahrenheit and orally. His heart rate was ranging between 67 and 57, and respiratory rate 16. His blood pressure initially was 114/63, that during the night and in the morning was 144/74 and subsequently is improving to 121/69. His mean blood pressure is stable and oxygen on the nasal cannula 97%. On room air also was 97%. On laboratory today, his POC glucose indicating that on fasting in the morning 137 and the subsequently 179 and covered with insulin to scale. Repeat plasma lactic acid in the venous returned to 1, was normalized subsequently. On the physical exam, his HEENT the head was normocephalic, atraumatic. Pupils were equal, reactive. Conjunctivae was pink. Sclerae was nonicteric. Hearing was normal and no complaint. Oropharynx, natural teeth with no complaint and tongue is normal. Uvula midline. No evidence of previous stroke. The neck was supple. No JVD. No thyromegaly. No lymphadenopathy. Trachea midline. Chest was clear to auscultation and percussion and no wheezes, no rhonchi. The heart, PMI in the 5th intercostal space, mildly outside midclavicular line. Normal S1, S2. No gallop. The abdomen is mildly obese. Positive bowel sounds. No organ enlargement and the sites of insulin injection as well. The extremities, no edema and positive pulses and the scar from previous surgery. On the feet, as mentioned bilaterally, we have the left foot nonhealing ulcer as well as the right foot nonhealing ulcer. Pulses were intact bilaterally and no arterial insufficiency. Neurologically is no lateralizing sign. Cranial nerves 2-12 was intact. Psychiatry, no change of mood and stable general condition. ASSESSMENT: 1. Admitted for IV antibiotics for diabetic foot ulcer bilaterally, worse on the left than the right with nonhealing and admitted for the further debridement. Care by Dr. Al, the vascular surgeon. 2. Underlying diabetes mellitus type 2. 3. Underlying history of gastroesophageal reflux disease. 4. Underlying history of essential tremor. 5. He has so far good renal function. Currently continuing with the soft tissues swelling treatment as well as debridement surgically with the wound as well as monitoring the blood sugar and cover with insulin and controlling hypertension as well as diabetes. Further treatment depends on the consultation with the Infectious Disease, Dr. Mingo Smith and he added to him piperacillin sodium/tazobactam 3.375 IV piggyback every 8 hours added to the vancomycin which started in the emergency room. Further treatment depends on the patient's general condition and improvement with the underlying diabetic foot ulcer. MMODL / IJN: [id number] /
[2018-10-13] MEDS: PIPERACILLIN-TAZOBACTAM 3.375 GM in SODIUM CHLORIDE 0.9% 100 ML IVPB SCH ×3 (02:40→18:32)
[2018-10-13] MEDS: VANCOMYCIN 2,000 MG in SODIUM CHLORIDE 0.9% 500 ML 500 ML IVPB SCH ×2 (05:40→20:04)
[2018-10-13 07:26] LABS: Glucose,Whole Blood 132 mg/dL (75-99)
[2018-10-13 07:43] LABS: African American GFR (CKD) >90 (>60 ml/min/1.73 sqM)
[2018-10-13] MEDS: INSULIN ASPART (NovoLOG) 100 UNIT/ML VIAL SQ SCH ×3 (07:52→18:32)
[2018-10-13 08:26] VITALS: RESP 16
--- NOTE | 2018-10-13 09:36 | PN ---
PROGRESS NOTE This is a 62-year-old gentleman who is well known to me from the Wound Clinic. He has been coming in the past for a callus of the both feet. He did well. He came again yesterday. He noticed infected callus left foot base of the fifth toe and right foot third toe. We did the debridement in the Wound Clinic of the left foot, base of the fifth toe and we took some deep culture. Patient had marked tenderness and pain in his dorsum aspect of the foot. The patient was seen by Infectious Disease for IV antibiotic. MEDICAL HISTORY: History of diabetes, obesity. PHYSICAL EXAMINATION: NECK: Supple, trachea central. CHEST: Clear to auscultation. ABDOMEN: Soft. Femoral pulses are present. Patient had infected callus left foot, base of the fifth toe and right foot, third toe. PLAN: We did the debridement in the Wound Clinic. Will use extra silver and IV antibiotic and follow with you. MMODL / IJN: [id number] /
[2018-10-13] MEDS: INSULIN DETEMIR (LEVEMIR) 100 UNIT/ML SYR SQ SCH ×2 (10:08→21:29)
[2018-10-13] MEDS: HEPARIN SODIUM,PORCINE 5,000 UNIT/ML 1 ML VIAL SQ SCH ×2 (10:08→21:29)
[2018-10-13] MEDS: CHOLECALCIFEROL 1,000 UNIT TAB PO SCH (10:09)
[2018-10-13] MEDS: LISINOPRIL 20 MG TAB PO SCH (10:09)
[2018-10-13] MEDS: PANTOPRAZOLE 40 MG TABLET PO SCH (10:09)
[2018-10-13] MEDS: VITAMIN E (DL,TOCOPHERYL ACET) 400 UNIT CAP PO SCH (10:09)
[2018-10-13] MEDS: HYDROCHLOROTHIAZIDE 12.5 MG CAP PO SCH (10:09)
[2018-10-13] MEDS: ASCORBIC ACID 500 MG TAB PO SCH (10:10)
[2018-10-13] MEDS: metFORMIN 850 MG TAB PO SCH ×2 (10:10→18:32)
[2018-10-13 11:27] LABS: Glucose,Whole Blood 231 mg/dL (75-99)
--- NOTE | 2018-10-13 13:35 | P.HPIM ---
History of Present Illness H&P Date: 10/12/18 (Dictated) Chief Complaint: Transferred from the wound clinic to the ER for admission with diabetic lamine Past Medical History Past Medical History: Diabetes Mellitus, Hyperlipidemia, Hypertension Additional Past Medical History / Comment(s): Diabetic neuropathy, sleep apnea, central tremors, carpal tunnel bilateral hands chronic wounds to the lower extremities History of Any Multi-Drug Resistant Organisms: MRSA Date of last positivie culture/infection: 2012 MDRO Source:: R toe Past Surgical History: Orthopedic Surgery Additional Past Surgical History / Comment(s): left knee arthroscopically, piece of bone taken out of left 2nd toe for biopsy, rt foot callus removal, multiple debridements done to the lower extremity ulcers, Achilles tendon lengthening September [address] Alicea Past Anesthesia/Blood Transfusion Reactions: No Reported Reaction Past Psychological History: No Psychological Hx Reported Smoking Status: Former smoker Past Alcohol Use History: Occasional Additional Past Alcohol Use History / Comment(s): Patient was a smoker and started at 8 years of age. He was up to 3 packs per day when he quit at age 28. He denies any medical marijuana, marijuana, street drug use. He drinks alcohol occasionally. He works as an flight purser. He lives at home with his . There are no pets in the home. He has traveled out east with no illne sses with his Past Drug Use History: None Reported - Past Family History Mother History Unknown: Yes Family Medical History: Cancer Additional Family Medical History / Comment(s): breast and colon ca Father History Unknown: Yes Family Medical History: Cancer Additional Family Medical History / Comment(s): stomach Medications and Allergies Home Medications Medication Instructions Recorded Confirmed Type metFORMIN HCL [Metformin HCl] 850 mg PO BID 10/26/14 10/11/18 History Ascorbic Acid [Vitamin C] 1,000 mg PO DAILY 10/27/14 10/11/18 History Cholecalciferol [Vitamin D3 (25 5,000 unit PO DAILY 10/27/14 10/11/18 History Mcg = 1000 Iu)] Insulin Aspart [NovoLOG Flexpen] See Protocol SQ TID 10/27/14 10/11/18 History Vitamin E (Dl,Tocopheryl Acet) 400 unit PO DAILY 10/27/14 10/11/18 History [Vitamin E] Insulin Aspart [NovoLOG Flexpen] 10 units SQ AC-TID 11/01/14 10/11/18 History Hydrochlorothiazide [Hydrodiuril] 12.5 mg PO DAILY 12/14/16 10/11/18 History Insulin Glargine,Hum.rec.anlog 25 unit SQ QAM 12/14/16 10/11/18 History [Lantus Solostar] Insulin Glargine,Hum.rec.anlog 35 unit SQ HS 12/14/16 10/11/18 History [Lantus Solostar] Lisinopril [Zestril] 20 mg PO DAILY 12/14/16 10/11/18 History [place]-3 Acid Ethyl Esters [Lovaza] 1 gm PO BID 12/14/16 10/11/18 History Pantoprazole Sodium [Protonix] 20 mg PO BID #30 tablet. 02/04/18 10/11/18 Rx Atorvastatin [Lipitor] 10 mg PO HS 10/11/18 10/11/18 History Primidone [Mysoline] 75 mg PO HS 10/11/18 10/11/18 History Allergies Allergy/AdvReac Type Severity Reaction Status Date / Time No Known Allergies Allergy Verified 10/11/18 18:24 Physical Exam Vitals: Vital Signs Temp Pulse Resp BP Pulse Ox 10/13/18 08:00 50 L 16 10/13/18 06:59 98.0 F 50 L 16 132/72 97 10/13/18 01:07 97.8 F 50 L 18 95/58 97 10/12/18 19:00 98.8 F 57 L 16 121/69 99 Intake and Output 10/12/18 10/13/18 10/13/18 22:59 06:59 14:59 Intake Total 600 Balance 600 Intake: Intake, IV Titration 600 Amount Piperacillin-Tazobactam 3 100 .375 gm In Sodium Chloride 0.9% 100 ml @ 25 mls/hr IVPB Q8HR@0000, 0400,2000 [facility] Rx#: [id number] Vancomycin 2,000 mg In 500 Sodium Chloride 0.9% 500 ml 500 ml @ 166.667 mls/ hr IVPB Q12H [facility] Rx#: [id number] Other: Voiding Method Toilet Toilet Urinal Urinal # Voids 2 2 Results CBC & Chem 7: 10/11/18 19:15 10/13/18 07:19 Labs: Abnormal Lab Results - Last 24 Hours (Table) 10/12/18 10/12/18 10/13/18 Range/Units 17:10 19:35 07:00 POC Glucose (mg/dL) 137 H 179 H 132 H (75-99) mg/dL 10/13/18 Range/Units 11:25 POC Glucose (mg/dL) 231 H (75-99) mg/dL Microbiology - Last 24 Hours (Table) 10/11/18 19:15 Blood Culture - Preliminary Blood No Growth after 24 hours Thrombosis Risk Factor Assmnt - Choose All That Apply Each Factor Represents 1 point: Obesity (BMI >25), Swollen legs (current) Other Risk Factors: Yes Each Risk Factor Represents 2 Points: Age 61-74 years Other congenital or acquired thrombophilia - If yes, enter type in comment: No Thrombosis Risk Factor Assessment Total Risk Factor Score: 4 Thrombosis Risk Factor Assessment Level: Moderate Risk
--- NOTE | 2018-10-13 13:37 | P.PN ---
Subjective Progress Note Date: 10/13/18 (Complained of onset loose bowel) Principal diagnosis: Diabetic foot ulcer. Diabetes mellitus type 2 insulin-dependent with neuropathy complicated. Hypertension controlled Hyperlipidemia controlled. Objective - Vital Signs Vital signs: Vital Signs Temp 98.0 F 10/13/18 06:59 Pulse 50 L 10/13/18 08:00 Resp 16 10/13/18 08:00 BP 132/72 10/13/18 06:59 Pulse Ox 97 10/13/18 06:59 Intake & Output 10/12/18 10/13/18 10/13/18 18:59 06:59 18:59 Intake Total 600 Balance 600 Weight 131.542 kg Intake: Intake, IV Titration 600 Amount Piperacillin-Tazobactam 3 100 .375 gm In Sodium Chloride 0.9% 100 ml @ 25 mls/hr IVPB Q8HR@0000, 0400,2000 [facility] Rx#: [id number] Vancomycin 2,000 mg In 500 Sodium Chloride 0.9% 500 ml 500 ml @ 166.667 mls/ hr IVPB Q12H [facility] Rx#: [id number] Other: Voiding Method Toilet Toilet Urinal Urinal # Voids 2 2 2 - Labs CBC & Chem 7: 10/11/18 19:15 10/13/18 07:19 Labs: Abnormal Lab Results - Last 24 Hours (Table) 10/12/18 10/12/18 10/13/18 Range/Units 17:10 19:35 07:00 POC Glucose (mg/dL) 137 H 179 H 132 H (75-99) mg/dL 10/13/18 Range/Units 11:25 POC Glucose (mg/dL) 231 H (75-99) mg/dL Microbiology - Last 24 Hours (Table) 10/11/18 19:15 Blood Culture - Preliminary Blood No Growth after 24 hours
--- NOTE | 2018-10-13 15:16 | NM ---
EXAMINATION TYPE: NM bone 3 phase DATE OF EXAM: 10/13/2018 COMPARISON: Bilateral feet radiographs dated 10/11/2018 HISTORY: osteomyelitis left foot, right great toe. Triple phase bone scintigraphy was performed following the injection of 24 mCi Tc 99m MDP. Immediate images and 5 hours post injection images acquired. FINDINGS: There is slightly asymmetric uptake to the right lower extremity on flow with focal uptake seen around the right fourth digit and left fifth digit on blood pool. On delayed imaging there is pe rsistent focal uptake at the right fourth digit with only mild uptake surrounding the left fifth digi t and degenerative changes of the mid feet as well as the first metatarsal phalangeal joints.. IMPRESSION: Findings suggesting multifocal osteomyelitis within the left fifth digit and right fourth digit with degenerative changes of the metatarsal phalangeal joints of the first digits and mid feet.
[2018-10-13 16:51] LABS: Glucose,Whole Blood 156 mg/dL (75-99)
[2018-10-13 20:37] LABS: Glucose,Whole Blood 203 mg/dL (75-99)
[2018-10-13] MEDS: ATORVASTATIN 10 MG TAB PO SCH (21:29)
[2018-10-13] MEDS: MELATONIN 5 MG TABLET PO SCH (21:29)
[2018-10-13] MEDS: PRIMIDONE 50 MG TAB PO SCH (21:29)
[2018-10-14] MEDS: PIPERACILLIN-TAZOBACTAM 3.375 GM in SODIUM CHLORIDE 0.9% 100 ML IVPB SCH ×3 (00:14→14:08)
[2018-10-14] MEDS ORDERED: VANCOMYCIN TROUGH DUE 1 EACH MISC MISCELLANE ONE (05:00)
[2018-10-14] MEDS: VANCOMYCIN 2,000 MG in SODIUM CHLORIDE 0.9% 500 ML 500 ML IVPB SCH (06:44)
[2018-10-14 07:34] LABS: Glucose,Whole Blood 126 mg/dL (75-99)
[2018-10-14] MEDS: INSULIN ASPART (NovoLOG) 100 UNIT/ML VIAL SQ SCH ×3 (08:00→17:16)
[2018-10-14] MEDS: ASCORBIC ACID 500 MG TAB PO SCH (08:00)
[2018-10-14] MEDS: LISINOPRIL 20 MG TAB PO SCH (08:00)
[2018-10-14] MEDS: HEPARIN SODIUM,PORCINE 5,000 UNIT/ML 1 ML VIAL SQ SCH (08:00)
[2018-10-14] MEDS: INSULIN DETEMIR (LEVEMIR) 100 UNIT/ML SYR SQ SCH (08:00)
[2018-10-14] MEDS: VITAMIN E (DL,TOCOPHERYL ACET) 400 UNIT CAP PO SCH (08:00)
[2018-10-14] MEDS: PANTOPRAZOLE 40 MG TABLET PO SCH (08:01)
[2018-10-14] MEDS: CHOLECALCIFEROL 1,000 UNIT TAB PO SCH (08:01)
[2018-10-14] MEDS: metFORMIN 850 MG TAB PO SCH ×2 (08:01→17:16)
[2018-10-14] MEDS: HYDROCHLOROTHIAZIDE 12.5 MG CAP PO SCH (08:01)
[2018-10-14] MEDS: INSULIN ASPART SQ SCH (08:24)
[2018-10-14 11:14] LABS: INR 0.9 (<1.2)
[2018-10-14 11:43] LABS: Glucose,Whole Blood 185 mg/dL (75-99)
[2018-10-14] MEDS ORDERED: LIDOCAINE 1% INJ 10MG/ML (20 ML MDV) ONE (11:48)
[2018-10-14] MEDS ORDERED: LIDOCAINE 1% INJ 10MG/ML (20 ML MDV) SQ ONE (12:02)
[2018-10-14 13:43] VITALS: BP 148/72; PULSE 71; TEMP 98.3
[2018-10-14 17:00] LABS: Glucose,Whole Blood 159 mg/dL (75-99)
--- NOTE | 2018-10-14 17:33 | P.DS ---
Providers Date of admission: 10/11/18 20:35 Expected date of discharge: 10/14/18 (Osteomyelitis with diabetic foot ulcer bilateral) Attending physician: Nick Calvillo Consults: 10/11/18 20:15 Consult Physician Routine Consulting Provider: Mingo Smith Consult Reason/Comments: diabetic foot ulcer Do you want consulting provider notified?: Yes Consult Physician Routine Consulting Provider: Arnaldo Al Consult Reason/Comments: foot ulcer Do you want consulting provider notified?: Yes Primary care physician: Nick Calvillo Diagnosis: #1 diabetic foot ulcers with the presence of osteomyelitis bilaterally #2 PICC line placement with the IV antibiotic Zosyn per Dr. Mingo Smith infectious disease prolonged period. PICC line in the right arm #3 diabetes mellitus type 2 insulin-dependent monitored with CBG lost blood sugar was 159. And a.m. 126. #4 bone scan finding suggestive of: Multi focal osteomyelitis left fifth digit and right fourth digit and degenerative changes of the metatarsal phalangeal joint of the first digit and mid feet. ER presentation: Patient treated with debridement by Dr. Raymundo vascular surgeon bilateral and subsequently secondary to the emergency room to be admitted for prolonged IV antibiotic as well as continuing care with the bone scan. Hospital course: Patient monitored blood sugar resumed his medication, consultation with Dr. Mingo Smith infectious disease who also did the dressing. And ordered the triple bone scan which was indicator of osteomyelitis bilateral subsequently patient had order for PICC line and to be treated as home IV antibiotic for prolonged time and follow-up with Dr. Mingo Smith as well as well in the clinic as well as Dr. Raymundo vascular surgeon. Exam on discharge: Vital sign temperature 98.3 F orally, heart rate 71 regular sinus, respiratory rate 16/m nonlabored. Blood pressure 148/72 and prior to that 132/67 Pulse ox was 97% on room air. HEENT negative no new development, head was normocephalic and atraumatic pupil was equal reactive conjunctiva was pink sclera nonicteric. Neck: Supple no JVD no thyromegaly no lymphadenopathy trachea midline. Chest: Clear to auscultation and percussion no wheezes no rhonchi normal breath sounds. Cardiovascular: No chest pain and no palpitation and the heart is regular sinus rhythm. Abdomen/GI no diarrhea and no tenderness in the 4 quadrant and positive bowel sounds. Extremities: No edema and positive pulses bilaterally on the dorsalis pedis and posterior tibial and the popliteal. He has dressing on both right and left foot for both diabetic ulcer which found to be has multifocal osteomyelitis currently on IV antibiotic. Psychiatry: Normal mood Neurologically: No lateralizing sign with normal cranial nerve and able to ambulate. Assessment: Patient stable general condition for discharge home today. material planner and Dr. Smith cleared him for discharge and he arranged for his antibiotic. Patient will continue his home medication added to the IV antibiotic through the PICC line. Plan: Home IV antibiotic with the range it with the visiting nurse by Dr. Smith and the urban and regional planner and the prescription from Dr. Mingo Smith. Follow-up with Dr. Mingo Smith, follow-up with Dr. Arnaldo Raymundo vascular surgeon, follow-up in the wound clinic. Follow-up with Dr. Calvillo Primary care after he is released from his IV antibiotic at home. Patient Condition at Discharge: Fair Plan - Discharge Summary Discharge Rx Participant: Yes New Discharge Prescriptions: New Piperacillin-Tazobactam [Zosyn] 3.375 gm IVPB Q6H #168 bag Piperacillin-Tazobactam [Zosyn] 3.375 gm IVPB Q8H vial Continue metFORMIN HCL [Metformin HCl] 850 mg PO BID Vitamin E (Dl,Tocopheryl Acet) [Vitamin E] 400 unit PO DAILY Cholecalciferol [Vitamin D3 (25 Mcg = 1000 Iu)] 5,000 unit PO DAILY Ascorbic Acid [Vitamin C] 1,000 mg PO DAILY Insulin Aspart [NovoLOG Flexpen] See Protocol SQ TID Insulin Aspart [NovoLOG Flexpen] 10 units SQ AC-TID [place]-3 Acid Ethyl Esters [Lovaza] 1 gm PO BID Lisinopril [Zestril] 20 mg PO DAILY Hydrochlorothiazide [Hydrodiuril] 12.5 mg PO DAILY Insulin Glargine,Hum.rec.anlog [Lantus Solostar] 35 unit SQ HS Insulin Glargine,Hum.rec.anlog [Lantus Solostar] 25 unit SQ QAM Pantoprazole Sodium [Protonix] 20 mg PO BID #30 tablet. Primidone [Mysoline] 75 mg PO HS Atorvastatin [Lipitor] 10 mg PO HS Discharge Medication List metFORMIN HCL [Metformin HCl] 850 mg PO BID 10/26/14 [History] Ascorbic Acid [Vitamin C] 1,000 mg PO DAILY 10/27/14 [History] Cholecalciferol [Vitamin D3 (25 Mcg = 1000 Iu)] 5,000 unit PO DAILY 10/27/14 [History] Insulin Aspart [NovoLOG Flexpen] See Protocol SQ TID 10/27/14 [History] Vitamin E (Dl,Tocopheryl Acet) [Vitamin E] 400 unit PO DAILY 10/27/14 [History] Insulin Aspart [NovoLOG Flexpen] 10 units SQ AC-TID 11/01/14 [History] Hydrochlorothiazide [Hydrodiuril] 12.5 mg PO DAILY 12/14/16 [History] Insulin Glargine,Hum.rec.anlog [Lantus Solostar] 25 unit SQ QAM 12/14/16 [History] Insulin Glargine,Hum.rec.anlog [Lantus Solostar] 35 unit SQ HS 12/14/16 [History] Lisinopril [Zestril] 20 mg PO DAILY 12/14/16 [History] [place]-3 Acid Ethyl Esters [Lovaza] 1 gm PO BID 12/14/16 [History] Pantoprazole Sodium [Protonix] 20 mg PO BID #30 tablet. 02/04/18 [Rx] Atorvastatin [Lipitor] 10 mg PO HS 10/11/18 [History] Primidone [Mysoline] 75 mg PO HS 10/11/18 [History] Piperacillin-Tazobactam [Zosyn] 3.375 gm IVPB Q6H #168 bag 10/14/18 [Rx] Piperacillin-Tazobactam [Zosyn] 3.375 gm IVPB Q8H vial 10/14/18 [Rx] Follow up Appointment(s)/Referral(s): Mingo Smith MD [STAFF PHYSICIAN] - 1 Week (Will make appointment when comes in for IV) [facility], [NON-STAFF] - As Needed [facility]fusion [NON-STAFF] - As Needed Arnaldo Al MD [STAFF PHYSICIAN] - 10/20/18 2:30 pm Nick Calvillo MD [Primary Care Provider] - 10/18/18 3:00 pm Ambulatory/Diagnostic Orders: Basic Metabolic Panel [LAB.AMB] Location: None Selected C Reactive Protein [LAB.AMB] Location: None Selected Complete Blood Count w/diff [LAB.AMB] Location: None Selected Erythrocyte Sedimentation Rate [LAB.AMB] Location: None Selected Patient Instructions/Handouts: Osteomyelitis (DC) Activity/Diet/Wound Care/Special Instructions: qiana VILCHIS
--- NOTE | 2018-10-15 06:26 | PN ---
PROGRESS NOTE Patient has history of chronic wound lower extremity. He has been admitted. We did the wound debridement of the left the foot on the plantar aspect. Today we checked the wound, wound is granulating. No discharge or redness noted. Right foot third toe has some callus formation with slight redness. The patient is on IV antibiotic under care of Dr. Smith. Patient had a bone scan. PLAN: Plan is if it is okay with Dr. Smith, patient can be discharged from surgical point of view. If the patient goes home, I will follow in the wound clinic on Thursday. Continue with Najma Norton. MMODL / IJN: [id number] /
--- NOTE | 2018-10-15 16:57 | IR ---
PICC LINE PLACEMENT: HISTORY: Infection requiring long-term antibiotic therapy PROCEDURE: Ultrasound and fluoroscopic guidance of PICC line placement. COMPLICATIONS: None ANESTHESIA: 1. 1% Lidocaine locally. FINDINGS/TECHNIQUE: The procedure was explained to the patient. The risks, complications, benefits and alternatives were discussed and any questions were answered. Informed consent was obtained. The patient was placed supine on the fluoroscopic table and prepped and draped in the usual sterile fash ion. Utilizing a 21 gauge needle and sonographic and fluoroscopic guidance, access in the left basi lic vein was achieved and there is placement of a 0.018 guidewire. The vein is patent. A 4-F sheath was placed over the guidewire. The guidewire and dilator were removed and a 4-F. PICC line was plac ed through the sheath with the tip at the level of the SVC. The sheath was removed, the catheter was flushed and sutured into position. The patient was stable throughout the procedure and remained sta ble upon discharge from the Department of Radiology. The vein puncture was patent under ultrasound. A gardner scale image was obtained to document patency of the vein punctured. All elements of the maximal barrier technique were utilized. FLUOROSCOPY TIME: 0.3 minutes, one image submitted IMPRESSION: Successful PICC line placement under ultrasound and fluoroscopic guidance.
== END 2018-10-14 18:34 | disposition home health service (06) | DRG 638 ==
LOC: EC 17:00 → 4SSUR 20:35
PROVIDERS: ADMIT Internal Medicine; ATTEND Internal Medicine
PROC: 02HV33Z Insertion of Infusion Device into Superior Vena Cava, Percutaneous Approach (ICD-10-PCS; principal; 2018-10-14 11:56)
DX: E11.69 Type 2 diabetes mellitus with other specified complication (principal); E87.2 Acidosis; M86.9 Osteomyelitis, unspecified; L03.115 Cellulitis of right lower limb; E11.40 Type 2 diabetes mellitus with diabetic neuropathy, unspecified; E11.621 Type 2 diabetes mellitus with foot ulcer; E11.628 Type 2 diabetes mellitus with other skin complications; E78.5 Hyperlipidemia, unspecified; G25.0 Essential tremor; G47.30 Sleep apnea, unspecified; G56.03 Carpal tunnel syndrome, bilateral upper limbs; I10 Essential (primary) hypertension; K21.9 Gastro-esophageal reflux disease without esophagitis; L97.512 Non-pressure chronic ulcer of other part of right foot with fat layer exposed; L97.529 Non-pressure chronic ulcer of other part of left foot with unspecified severity; E66.9 Obesity, unspecified; L84 Corns and callosities; M25.571 Pain in right ankle and joints of right foot; M20.42 Other hammer toe(s) (acquired), left foot; M20.41 Other hammer toe(s) (acquired), right foot; M19.071 Primary osteoarthritis, right ankle and foot; M77.32 Calcaneal spur, left foot; M77.31 Calcaneal spur, right foot; Z68.37 Body mass index [BMI] 37.0-37.9, adult; Z79.4 Long term (current) use of insulin; Z79.899 Other long term (current) drug therapy; Z86.14 Personal history of Methicillin resistant Staphylococcus aureus infection; Z87.891 Personal history of nicotine dependence; Z89.422 Acquired absence of other left toe(s); Z80.0 Family history of malignant neoplasm of digestive organs; Z80.3 Family history of malignant neoplasm of breast
CPT/HCPCS: 36415; 36573; 78315; 80048; 80202; 82565; 83605; 85025; 85610; 87040; 87324; 96365; 99284

== ENCOUNTER 2018-10-20 08:43 | Emergency (ER) | payer BC ==
[2018-10-20 09:01] VITALS: BP 148/68; PULSE 56; RESP 18; TEMP 98.3
--- NOTE | 2018-10-20 09:53 | ED ---
General Adult HPI - General Chief complaint: Skin/Abscess/Foreign Body Stated complaint: leaky picc line Time Seen by Provider: 10/20/18 09:32 Source: patient, RN notes reviewed, old records reviewed Mode of arrival: ambulatory Limitations: no limitations - History of Present Illness Initial comments: Patient's a 62-year-old male transverse from today for concerns for bleeding around his PICC line site. This was placed last week for concern for osteomyelitis. Patient reports that he was mowing lawn when he later on noticed bleeding around his arm and from the PICC line site. Patient states that he is supposed to have this for a few weeks. He denies any other symptoms at this time. - Related Data Home Medications Medication Instructions Recorded Confirmed metFORMIN HCL [Metformin HCl] 850 mg PO BID 10/26/14 10/20/18 Ascorbic Acid [Vitamin C] 1,000 mg PO DAILY 10/27/14 10/20/18 Cholecalciferol [Vitamin D3 (25 5,000 unit PO DAILY 10/27/14 10/20/18 Mcg = 1000 Iu)] Insulin Aspart [NovoLOG Flexpen] See Protocol SQ ACHS 10/27/14 10/20/18 Vitamin E (Dl,Tocopheryl Acet) 400 unit PO DAILY 10/27/14 10/20/18 [Vitamin E] Insulin Aspart [NovoLOG Flexpen] 10 units SQ AC-SUPPER 11/01/14 10/20/18 Hydrochlorothiazide [Hydrodiuril] 12.5 mg PO DAILY 12/14/16 10/20/18 Insulin Glargine,Hum.rec.anlog 10 unit SQ QAM 12/14/16 10/20/18 [Lantus Solostar] Insulin Glargine,Hum.rec.anlog 25 unit SQ HS 12/14/16 10/20/18 [Lantus Solostar] Lisinopril [Zestril] 20 mg PO DAILY 12/14/16 10/20/18 [place]-3 Acid Ethyl Esters [Lovaza] 1 gm PO BID 12/14/16 10/20/18 Atorvastatin [Lipitor] 10 mg PO HS 10/11/18 10/20/18 Primidone [Mysoline] 75 mg PO HS 10/11/18 10/20/18 Insulin Aspart [NovoLOG Flexpen] 5 unit SQ AC-BID@0700,1200 10/20/18 10/20/18 Previous Rx's Medication Instructions Recorded Pantoprazole Sodium [Protonix] 20 mg PO BID #30 tablet. 02/04/18 Piperacillin-Tazobactam [Zosyn] 3.375 gm IVPB Q6H #168 bag 10/14/18 Allergies Allergy/AdvReac Type Severity Reaction Status Date / Time No Known Allergies Allergy Verified 10/20/18 09:45 Review of Systems ROS Statement: Those systems with pertinent positive or pertinent negative responses have been documented in the HPI. ROS Other: All systems not noted in ROS Statement are negative. Past Medical History Past Medical History: Diabetes Mellitus, Hyperlipidemia, Hypertension Additional Past Medical History / Comment(s): Diabetic neuropathy, sleep apnea, central tremors, carpal tunnel bilateral hands chronic wounds to the lower extremities History of Any Multi-Drug Resistant Organisms: MRSA Date of last positivie culture/infection: 2012 MDRO Source:: R toe Past Surgical History: Orthopedic Surgery Additional Past Surgical History / Comment(s): left knee arthroscopically, piece of bone taken out of left 2nd toe for biopsy, rt foot callus removal, multiple debridements done to the lower extremity ulcers, Achilles tendon lengthening September [address] Alicea Past Anesthesia/Blood Transfusion Reactions: No Reported Reaction Past Psychological History: No Psychological Hx Reported Smoking Status: Former smoker Past Alcohol Use History: Occasional Past Drug Use History: None Reported - Past Family History Mother History Unknown: Yes Family Medical History: Cancer Additional Family Medical History / Comment(s): breast and colon ca Father History Unknown: Yes Family Medical History: Cancer Additional Family Medical History / Comment(s): stomach General Exam - General Exam Comments Initial Comments: 62-year-old male. Alert and oriented. No significant distress. Limitations: no limitations General appearance: alert, in no apparent distress Head exam: Present: atraumatic, normocephalic, normal inspection Eye exam: Present: normal appearance, PERRL, EOMI. Absent: scleral icterus, conjunctival injection, periorbital swelling ENT exam: Present: normal exam, mucous membranes moist Neck exam: Present: normal inspection. Absent: tenderness, meningismus, lymphadenopathy Respiratory exam: Present: normal lung sounds bilaterally. Absent: respiratory distress, wheezes, rales, rhonchi, stridor Cardiovascular Exam: Present: regular rate GI/Abdominal exam: Present: soft, normal bowel sounds. Absent: distended, tenderness, guarding, rebound, rigid Extremities exam: Present: normal inspection, full ROM, normal capillary refill, other (Patient is something PICC line within the left before meals. There is evidence of blood around Tegaderm site and butterfly dressing site.). Absent: tenderness, pedal edema, joint swelling, calf tenderness Back exam: Present: normal inspection Neurological exam: Present: alert, oriented X3, CN II-XII intact Course Vital Signs 10/20/18 08:59 Temperature 98.3 F Pulse Rate 56 L Respiratory 18 Rate Blood Pressure 148/68 O2 Sat by Pulse 97 Oximetry Medical Decision Making - Medical Decision Making Patient is a 62-year-old male presents for his prostate bleeding around the PICC line site. He has bleeding underneath the Tegaderm. This was removed, and the area was cleaned with alcohol swab. Patient is likely caused some trauma to the around the insertion site of the catheter from mowing the lawn doing exertional activity. I discussed the Patient needs to rest. The quantitative was cleaned with alcohol, new Tegaderm dressing was placed over top. Patient's eye otherwise very appears well. I discussed the Patient is felt visiting nurse, if there is any further bleeding or any other concerns or crepitations with PICC line to return, he may need to have reevaluation for her to be replaced. All questions answered and return parameters were discussed. Disposition Clinical Impression: Bleeding from PICC line Disposition: HOME SELF-CARE Condition: Good Instructions (If sedation given, give patient instructions): Peripherally Inserted Central Catheters and Midline Catheters in... (DC) Additional Instructions: Follow-up with here visiting nurse and primary care physician. The bleeding or further complications occur with the PICC line return for reevaluation. Should limit strenuous activity. Is patient prescribed a controlled substance at d/c from ED?: No Referrals: Nick Calvillo MD [Primary Care Provider] - 1-2 days
== END 2018-10-20 11:17 | disposition home or self-care (01) ==
LOC: EC 08:43
DX: T82.838A Hemorrhage due to vascular prosthetic devices, implants and grafts, initial encounter (principal); E11.40 Type 2 diabetes mellitus with diabetic neuropathy, unspecified; E78.5 Hyperlipidemia, unspecified; I10 Essential (primary) hypertension; Z86.14 Personal history of Methicillin resistant Staphylococcus aureus infection; Z87.891 Personal history of nicotine dependence; Z79.4 Long term (current) use of insulin; Z79.899 Other long term (current) drug therapy
CPT/HCPCS: 99283

== ENCOUNTER 2018-10-26 08:55 | Inpatient (IN) | payer BC ==
--- NOTE | 2018-10-25 22:19 | CONS ---
CONSULTATION This is a 62 gentleman who is well known to us from the wound clinic. The patient came to the Wound Clinic today. The patient has a infected callus left foot plantar aspect at the base of the 5th metatarsal bone. The metatarsal bone is exposed. The patient had a bone scan which is positive for osteo. The patient was seen by Dr. Smith and myself, scheduled to have ray amputation of the left foot 5th toe. PAST MEDICAL HISTORY: Medical history of diabetes. PAST SURGICAL HISTORY: Patient had a multiple times admission because of the infected callus and also patient had a tendon lengthening procedure by Dr. Alicea, bilateral. PHYSICAL EXAMINATION: NECK: Supple. CHEST: Clear to auscultation. ABDOMEN: Soft. Femoral pulses are present. Dorsalis pedis is palpable. Left foot along the plantar aspect of the foot, there is an infected callus. Head of the metatarsal bone is exposed. The patient is on IV antibiotics under care of Dr. Mingo Smith. PLAN: Ray amputation of the left foot 5th toe. Risks and complications discussed. Thank you very much for this consultation. MMODL / IJN: [id number] /
[2018-10-26 09:38] VITALS: BMI 37.1
[2018-10-26] MEDS: INSULIN ASPART (NovoLOG) 100 UNIT/ML VIAL SQ SCH ×4 (11:24→21:17)
[2018-10-26] MEDS ORDERED: INSULIN ASPART SQ SCH (12:30)
[2018-10-26] MEDS ORDERED: IV FLUID CONTINUATION 1,000 ML IV ONE (13:16)
[2018-10-26 13:27] LABS: Glucose,Whole Blood 79 mg/dL (75-99)
--- NOTE | 2018-10-26 13:35 | P.HPIM ---
History of Present Illness H&P Date: 10/26/18 (osteomylitis Lt foot toe, for amputation) Chief Complaint: nonhealed lt foot toe diabtic ulcer osteomylitis dictated #[id number] H&P . Past Medical History Past Medical History: Diabetes Mellitus, Hyperlipidemia, Hypertension, Sleep Apnea/CPAP/BIPAP Additional Past Medical History / Comment(s): Pt recently admitted to [facility] on 10/11/18 with osteomyelitis and diabetic foot ulcers bilateral feet. Other Hx: IDDM type II, neuropathy bilateral feet, diabetic ulcers bilateral feet (current) and bilateral lower legs (healed), CARLYN with Cpap, essential tremors, carpal tunnel syndrome bilaterally. History of Any Multi-Drug Resistant Organisms: MRSA Date of last positivie culture/infection: 2012 MDRO Source:: R toe Past Surgical History: Orthopedic Surgery Additional Past Surgical History / Comment(s): L 2nd toe bone removed/bx, L 4th toe amputation, bilateral surgery for achilles lengthening, R foot callus removed, bilateral feet and leg debridements, L knee arthroscopy, colonoscopy/benign polypectomy, PICC line present in L upper arm. Past Anesthesia/Blood Transfusion Reactions: No Reported Reaction Smoking Status: Former smoker - Past Family History Mother History Unknown: Yes Family Medical History: Cancer Additional Family Medical History / Comment(s): breast and colon ca Father History Unknown: Yes Family Medical History: Cancer Additional Family Medical History / Comment(s): stomach Medications and Allergies Home Medications Medication Instructions Recorded Confirmed Type RX: metFORMIN HCL [Metformin HCl] 850 mg PO BID 10/26/14 10/26/18 History RX: Ascorbic Acid [Vitamin C] 1,000 mg PO DAILY 10/27/14 10/26/18 History RX: Cholecalciferol [Vitamin D3 5,000 unit PO DAILY 10/27/14 10/26/18 History (25 Mcg = 1000 Iu)] RX: Insulin Aspart [NovoLOG See Protocol SQ ACHS 10/27/14 10/26/18 History Flexpen] RX: Vitamin E (Dl,Tocopheryl Acet) 400 unit PO DAILY 10/27/14 10/26/18 History [Vitamin E] RX: Insulin Aspart [NovoLOG 10 units SQ AC-SUPPER 11/01/14 10/26/18 History Flexpen] RX: Hydrochlorothiazide 12.5 mg PO DAILY 12/14/16 10/26/18 History [Hydrodiuril] RX: Insulin Glargine,Hum.rec.anlog 10 unit SQ QAM 12/14/16 10/26/18 History [Lantus Solostar] RX: Insulin Glargine,Hum.rec.anlog 25 unit SQ HS 12/14/16 10/26/18 History [Lantus Solostar] RX: Lisinopril [Zestril] 20 mg PO DAILY 12/14/16 10/26/18 History RX: [place]-3 Acid Ethyl Esters 1 gm PO BID 12/14/16 10/26/18 History [Lovaza] RX: Pantoprazole Sodium [Protonix] 20 mg PO BID #30 tablet. 02/04/18 10/26/18 Rx RX: Atorvastatin [Lipitor] 10 mg PO HS 10/11/18 10/26/18 History RX: Primidone [Mysoline] 75 mg PO HS 10/11/18 10/26/18 History Piperacillin-Tazobactam [Zosyn] 3.375 gm IVPB Q6H #168 bag 10/14/18 10/26/18 Rx RX: Insulin Aspart [NovoLOG 5 unit SQ AC-BID@0700,1200 10/20/18 10/26/18 History Flexpen] Allergies Allergy/AdvReac Type Severity Reaction Status Date / Time No Known Allergies Allergy Verified 10/26/18 10:32 Physical Exam Vitals: Intake and Output 10/25/18 10/26/18 10/26/18 22:59 06:59 14:59 Other: Weight 131.36 kg Thrombosis Risk Factor Assmnt - Choose All That Apply Any of the Below Risk Factors Present?: Yes Each Factor Represents 1 point: Minor surgery planned, Obesity (BMI >25) Other Risk Factors: Yes Each Risk Factor Represents 2 Points: Age 61-74 years Other congenital or acquired thrombophilia - If yes, enter type in comment: No Thrombosis Risk Factor Assessment Total Risk Factor Score: 4 Thrombosis Risk Factor Assessment Level: Moderate Risk
[2018-10-26] MEDS ORDERED: MIDAZOLAM (PF) 2 MG/2 ML VIAL IVP ONE (13:38)
[2018-10-26] MEDS ORDERED: LIDOCAINE 1% INJ 10MG/ML (20 ML MDV) SQ ONE (13:53)
[2018-10-26 15:10] LABS: Glucose,Whole Blood 70 mg/dL (75-99)
[2018-10-26] MEDS: HYDROmorphone 0.5 MG/0.5 ML SYRINGE IVP ONE ×2 (15:12→15:21)
--- NOTE | 2018-10-26 16:31 | HP ---
HISTORY AND PHYSICAL DATE OF SERVICE: 10/26/2018 This patient is a 63-year-old white male. Height is 6 feet 2 inches, weight 131.36 kg, BSA 2.45 m2, BMI 37.2 kg/m2. ALLERGIES: UNKNOWN. HISTORY AND CHIEF COMPLAINT: The patient has been followed in the wound clinic. His time for the wound clinic was Thursday, when he was seen by Dr. Al and Dr. Mingo Smith, and subsequently they found that his right foot has been healing well with the antibiotic he has continued to be on, which is Zosyn IV piggyback through left PICC line every 6 hours. The left foot toe is still oozing and having a problem with the osteomyelitis, and he needs to have the toe amputated. When he was in the wound clinic, Dr. Al called me in the office and advised me to admit the patient tomorrow, which is today, October 26, 2018, and he will amputate the left toe with the advanced diabetic ulcer with the still non-healed infection that was proved to be osteomyelitis. The patient currently admitted to the hospital, and consults for Dr. Smith and Dr. Al have been placed, as he is going to operate on him today. PAST MEDICAL HISTORY: 1. History of diabetes mellitus, type 2, insulin-dependent, with the recurrent ulceration of the foot. 2. History of essential tremor, treated by Dr. Ca, neurologist. 3. History of hypertension. 4. Hyperlipidemia. 5. Obesity. However, he has been trying to lose weight, with gradual improvement. 6. History of sleep apnea. SOCIAL HISTORY: He is and he has 2 children, one boy and one girl, in good health. He drinks coffee. CURRENT MEDICATION LIST: 1. NovoLog FlexPen 100 unit/mL. That was used as directed with the coverage for before meals and at bedtime. 2. Zosyn IV through the PICC line with the help of a visiting nurse and his . 3. Atorvastatin 10 mg at bedtime. 4. At home he was on NovoLog FlexPen 5 units before breakfast, 5 units before lunch, 10 units before supper. However, the patient is n.p.o. and he is going for surgery, and he is only covered with scale. 5. Fish oil 1 capsule twice a day. 6. Lantus 10 units in the morning and 25 units in the evening. However, this also has been held because of his surgery. 7. Hydrochlorothiazide 12.5 mg once a day. 8. Lisinopril 20 mg one tablet daily. 9. Omeprazole for GERD 40 mg delayed-release. 10.Vitamin E 400 units. 11.Vitamin D 5000 with the history of underlying vitamin D insufficiency. 12.Vitamin C 1000 mg once a day. We held the fish oil for the bleeding as well as the vitamin C as he is going for surgery. REVIEW OF SYSTEMS: NEUROPSYCHIATRY: Stable. The patient is conscious, alert, oriented x3. His is at bedside. He is unable to ambulate and uses a wheelchair due to his healing and ulceration in the feet, instep bilaterally, and the toes. Right side is healing well. CARDIOVASCULAR: No palpitation or chest pain. Regular sinus. GI: No abdominal pain. No nausea. No vomiting. : No dysuria or hematuria. CHEST/RESPIRATORY: No wheezes. No rhonchi. No cough. No recent upper respiratory tract infection. MUSCULOSKELETAL: Negative. On the feet, as mentioned, he has trouble with osteomyelitis and is going for amputation. ENDOCRINE: He has the underlying diabetes mellitus. PHYSICAL EXAMINATION: The patient is conscious, alert, oriented x3. VITAL SIGNS: Per the computer. Blood pressure has been stable. It was 122/66, his pulse rate was 54 and respiratory rate 16 in the office with a pulse ox 96%. HEENT: The head was normocephalic, atraumatic. Pupils equal, reactive. Conjunctivae pink, sclerae nonicteric. Oropharynx revealed natural teeth. NECK: Neck was supple. No JVD. No thyromegaly. No lymphadenopathy. Trachea midline. CHEST: Clear to auscultation and percussion. No wheezes. No rhonchi. HEART: PMI in the fifth intercostal space outside midclavicular line with normal S1, S2. No gallop. ABDOMEN: Soft, nontender. Positive bowel sounds in 4 quadrants. EXTREMITIES: No edema. Positive pulses. The wound was covered and he has a PICC line infusing for the antibiotic, with the underlying left foot diabetic ulcer with dressing. ASSESSMENT: Left foot toe planned for amputation by Dr. Al. He was seen yesterday in the wound clinic and they decided (Dr. Smith and Dr. Al) for the amputation. He is today in for that purpose. We will continue the plan, continue the antibiotic with a PICC line and subsequently going to surgery and monitoring diabetes and monitoring his blood pressure. MMODL / IJN: [id number] /
[2018-10-26 17:21] LABS: Glucose,Whole Blood 177 mg/dL (75-99)
[2018-10-26 20:24] LABS: Glucose,Whole Blood 205 mg/dL (75-99)
[2018-10-26] MEDS: ATORVASTATIN 10 MG TAB PO SCH (21:17)
--- NOTE | 2018-10-26 22:13 | CONS ---
CONSULTATION PREOPERATIVE DIAGNOSIS: Osteomyelitis of the left foot metatarsal bone with infected callus involving the plantar aspect of the left foot. OPERATION: Left fifth toe amputation done along with the head of the metatarsal removed. Specimen sent for culture. DESCRIPTION OF PROCEDURE: This patient was brought to the operating room under local and IV sedation. An elliptical incision was made on the dorsal aspect of the foot, deepened through skin, fat and fascia. This incision was continued to the plantar aspect along with infected callus, deepened through skin, fat and fascia. Dissection was carried out along with the head of the metatarsal bone. I went circumferentially around it, and using the bone cutter, we divided the head of the metatarsal bone, then along with the fifth toe, tendons were divided and the specimen was removed. There were some bleeding points which were controlled with 5-0 Prolene. After that the wound was copiously irrigated with hydrogen peroxide and saline and Betadine. Then we approximated the subcutaneous tissue and fascia using 2-0 Vicryl with interrupted suture, and the skin was closed with 3-0 nylon with suture. Dressing was applied. Patient tolerated the procedure well. MMODL / IJN: [id number] /
--- NOTE | 2018-10-27 00:55 | P.CONS ---
History of Present Illness - Reason for Consult Consult date: 10/26/18 - Chief Complaint osteomyelitis left foot - History of Present Illness 62-year-old male well-known to the service from his prior hospitalizations and her the wound healing Center for his diabetic foot infections. In the past he developed the sudden change to his right foot fourth toe. It was a gangrenous change requiring the amputation to the site. He is followed by Dr. Alicea in the outpatient setting Further evaluation and care of his diabetic foot wounds and needs for tendon lengthening procedures. These have occurred in his been doing very well since the toe amputation. He said approximately a 50 pound weight loss and overall is feeling somewhat better. 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 He relates that he's had some minimal wounds to his feet that suddenly have changed developed the ulceration to the right foot great toe and left foot lateral surface of the fifth metatarsal head. He has been seen in the wound healing Center, there was no evident change in the status he was debrided cultures were obtained and he was admitted to hospital. he has been seen by the vascular Surgeon and with the difficulties of the ulceration to the left foot plantar surface with metatarsal head with open ulceration and exposed bone the likelihood of healing of this ulceration was very low. Consequently fifth ray amputation was advised. The patient has not been admitted for surgical intervention, he was seen in the wound center yesterday and questions were answered. Patient agreed to the procedure and it is now occurred. He will remain hospitalized for approximately 48 hours. He will continue his intravenous antibiotic therapy since there is still residual osteomyelitis and to the right foot. Review of Systems HEENT:Denies headache or acute visual change. Denies sinus or mouth discomforts. Denies neck stiffness or pain. Denies significant oral cavity pain. Denies difficulty on swallowing. Lungs: Denies significant shortness of breath, cough, sputum production, or hemoptysis. Cardiovascular: Denies significant shortness of breath, chest pain, chest wall pain, orthopnea, dyspnea on exertion, syncope Gastrointestinal:Denies nausea, vomiting, diarrhea, constipation, hematemesis, melena, hematochezia. No no significant change of bowel habit noticed. Musculoskeletal: denies significant myalgias or arthralgias. No new joint swelling. Denies new back pain. Skin: new Ulcerations is related per the HPI Neuro: Denies headache or visual change. Denies any new onset weakness or difficulty with ambulation. Denies falls or seizures. Psychiatric:Denies anxiety or depression. Endocrine: Denies significant fatigue, has had a successful 50 pound weight loss Past Medical History Past Medical History: Diabetes Mellitus, Hyperlipidemia, Hypertension, Sleep Apnea/CPAP/BIPAP Additional Past Medical History / Comment(s): Pt recently admitted to [facility] on 10/11/18 with osteomyelitis and diabetic foot ulcers bilateral feet. Other Hx: IDDM type II, neuropathy bilateral feet, diabetic ulcers bilateral feet (current) and bilateral lower legs (healed), CARLYN with Cpap, essential tremors, carpal tunnel syndrome bilaterally. History of Any Multi-Drug Resistant Organisms: MRSA Year Discovered:: 2012 MDRO Source:: R toe Past Surgical History: Orthopedic Surgery Additional Past Surgical History / Comment(s): L 2nd toe bone removed/bx, L 4th toe amputation, bilateral surgery for achilles lengthening, R foot callus removed, bilateral feet and leg debridements, L knee arthroscopy, colonoscopy/benign polypectomy, PICC line present in L upper arm. Past Anesthesia/Blood Transfusion Reactions: No Reported Reaction Additional Psychological History / Comment(s): Patient was a smoker and started at 8 years of age. He was up to 3 packs per day when he quit at age 28. He denies any medical marijuana, marijuana, street drug use. He drinks alcohol occ asionally. He works as an fixed assets accountant. He lives at home with his . There are no pets in the home. He has traveled out [place] with no illnesses with his Smoking Status: Former smoker - Past Family History Mother History Unknown: Yes Family Medical History: Cancer Additional Family Medical History / Comment(s): breast and colon ca Father History Unknown: Yes Family Medical History: Cancer Additional Family Medical History / Comment(s): stomach Medications and Allergies Home Medications and Allergies Comment(s): Current Medications Atorvastatin Calcium (Lipitor) 10 mg PO HS [facility] Last Admin: 10/26/18 21:17 Dose: 10 mg Documented by: Hydrochlorothiazide (Hydrodiuril) 12.5 mg PO DAILY [facility] Hydromorphone HCl (Dilaudid) 1 mg IVP Q3HR PRN PRN Reason: Pain Insulin Aspart (Novolog) 5 unit SQ AC-BID@0700,1200 [facility] Last Admin: 10/26/18 11:24 Dose: Not Given Documented by: Insulin Aspart (Novolog) 0 unit SQ ACHS [facility]; Protocol Last Admin: 10/26/18 21:17 Dose: 4 unit Documented by: Home Medications Medication Instructions Recorded Confirmed Type metFORMIN HCL [Metformin HCl] 850 mg PO BID 10/26/14 10/26/18 History Ascorbic Acid [Vitamin C] 1,000 mg PO DAILY 10/27/14 10/26/18 History Cholecalciferol [Vitamin D3 (25 5,000 unit PO DAILY 10/27/14 10/26/18 History Mcg = 1000 Iu)] Insulin Aspart [NovoLOG Flexpen] See Protocol SQ ACHS 10/27/14 10/26/18 History Vitamin E (Dl,Tocopheryl Acet) 400 unit PO DAILY 10/27/14 10/26/18 History [Vitamin E] Insulin Aspart [NovoLOG Flexpen] 10 units SQ AC-SUPPER 11/01/14 10/26/18 History Hydrochlorothiazide [Hydrodiuril] 12.5 mg PO DAILY 12/14/16 10/26/18 History Insulin Glargine,Hum.rec.anlog 10 unit SQ QAM 12/14/16 10/26/18 History [Lantus Solostar] Insulin Glargine,Hum.rec.anlog 25 unit SQ HS 12/14/16 10/26/18 History [Lantus Solostar] Lisinopril [Zestril] 20 mg PO DAILY 12/14/16 10/26/18 History [place]-3 Acid Ethyl Esters [Lovaza] 1 gm PO BID 12/14/16 10/26/18 History Pantoprazole Sodium [Protonix] 20 mg PO BID #30 tablet. 02/04/18 10/26/18 Rx Atorvastatin [Lipitor] 10 mg PO HS 10/11/18 10/26/18 History Primidone [Mysoline] 75 mg PO HS 10/11/18 10/26/18 History Piperacillin-Tazobactam [Zosyn] 3.375 gm IVPB Q6H #168 bag 10/14/18 10/26/18 Rx Insulin Aspart [NovoLOG Flexpen] 5 unit SQ AC-BID@0700,1200 10/20/18 10/26/18 History Allergies Allergy/AdvReac Type Severity Reaction Status Date / Time No Known Allergies Allergy Verified 10/26/18 10:32 Physical Exam Vitals: Vital Signs Temp Pulse Pulse Resp BP Pulse Ox 10/26/18 21:25 98.1 F 50 L 20 143/71 95 10/26/18 15:30 50 L 16 117/66 96 10/26/18 15:15 51 L 16 120/69 95 10/26/18 14:59 96.8 F L 57 L 12 113/59 96 10/26/18 13:46 48 L 16 99 10/26/18 13:22 98.1 F 50 L 16 146/66 96 10/26/18 09:15 97.5 F L 49 L 16 150/83 98 Intake and Output 10/26/18 10/26/18 10/27/18 14:59 22:59 06:59 Intake Total 275 400 Output Total 50 100 Balance 225 300 Intake: IV 275 200 Oral 200 Output: Urine 100 Estimated Blood Loss 50 Other: # Voids 1 3 Weight 131.36 kg Pleasant 62-year-old male not in distress HEENT: Anicteric conjunctiva are pink and moist nasal mucosa grossly intact without significant lesions, there is no thrush. Neck: The neck is supple without significant lymphadenopathy or thyromegaly. Lungs: Good bilateral air entry without significant crackles or wheezing. There is no significant bronchial sounds. There is no egophony or dullness. Heart: Regular rate and rhythm with an audible S1-S2, no S3 no S4. There is no significant murmur click or rub, PMI was nondisplaced. Abdomen: Positive bowel sounds soft and nontender without palpable masses or organomegaly. There was no guarding or rebound. Extremities: The upper extremities have excellent pulses they are symmetric, no significant petechiae or telangiectasia. No splinter hemorrhages were noted. Lower extremities evidence of some trace edema. the patient is now in the fifth ray amputation left foot. There is evidence of the residual lceration of the right foot fourth plantar surfacedistal prolix dressing is in place. Neuro: Awake alert oriented to person place and time. There are no acute new gross focal sensory motor deficits. But does have decreased sensation over the bilateral feet. Results Labs: Abnormal Lab Results - Last 24 Hours (Table) 10/26/18 10/26/18 10/26/18 Range/Units 15:05 17:19 20:12 POC Glucose (mg/dL) 70 L 177 H 205 H (75-99) mg/dL Microbiology - Last 24 Hours (Table) 10/26/18 14:43 Gram Stain - Preliminary Toe - Left Fifth Tissue Culture - Preliminary 10/26/18 14:43 Anaerobic Culture - Preliminary Toe - Left Fifth 10/26/18 14:43 Fungal Culture - Preliminary Toe - Left Fifth Laboratory Results POC Glucose (mg/dL) 205 mg/dL (75-99) H 10/26/18 20:[address] Liaison ID Darby Raya 10/26/18 20:12 Microbiology 10/26/18 14:43 Toe - Left Fifth Gram Stain - Preliminary 10/26/18 14:43 Toe - Left Fifth Tissue Culture - Preliminary 10/26/18 14:43 Toe - Left Fifth Anaerobic Culture - Preliminary 10/26/18 14:43 Toe - Left Fifth Fungal Culture - Preliminary Assessment and Plan (1) Osteomyelitis of ankle or foot, left, acute Narrative/Plan: 63-year-old male who has a long-standing history of diabetes mellitus type 2 who has had difficulty with obesity but now is had about a 50 pound weight loss with improvement of his status and improve glucose control. However developed the diabetic ulceration to the left plantar surface partly due to the deformity of the foot. The fifth metatarsal head was exposed and there is evidence of poor tissue quality and that site. He was seen by vascular surgery in the ray amputation has been performed which will hopefully allow complete resolution of this chronic infectious process. He does continue to have the difficulty with the right foot fourth toe osteomyelitis for which his antibiotic therapy will c ontinue. It's Invanz in the outpatient setting. We'll utilize Zosyn while he is here in hospital. Local wound care is [facility] to the [facility] for now. He will likely be discharged home in about 48 hours at his first dressing change. Offloading to that left foot be required, he may be a candidate for total contact cast in the wound healing center at discharge. Current Visit: No Status: Acute Code(s): M86.172 - OTHER ACUTE OSTEOMYELITIS, LEFT ANKLE AND FOOT SNOMED Code(s): 562072613 (2) Diabetic ulcer of right foot associated with diabetes mellitus due to underlying condition, with fat layer exposed Current Visit: No Status: Acute Code(s): E08.621 - DIABETES MELLITUS DUE TO UNDERLYING CONDITION W FOOT ULCER; L97.512 - NON-PRS CHRONIC ULCER OTH PRT RIGHT FOOT W FAT LAYER EXPOSED SNOMED Code(s): 181401903
[2018-10-27] MEDS: PIPERACILLIN-TAZOBACTAM 3.375 GM in SODIUM CHLORIDE 0.9% 100 ML IVPB SCH ×3 (01:31→16:08)
[2018-10-27] MEDS: HYDROmorphone 1 MG/ML 1 ML SYRINGE IVP PRN ×4 (04:15→22:15)
[2018-10-27 07:20] LABS: Glucose,Whole Blood 126 mg/dL (75-99)
[2018-10-27] MEDS: INSULIN ASPART (NovoLOG) 100 UNIT/ML VIAL SQ SCH ×7 (08:04→21:00)
[2018-10-27] MEDS: HYDROCHLOROTHIAZIDE 12.5 MG CAP PO SCH (08:04)
[2018-10-27 12:14] LABS: Glucose,Whole Blood 169 mg/dL (75-99)
--- NOTE | 2018-10-27 13:38 | P.PN ---
Subjective Progress Note Date: 10/27/18 (s/p amputation left fifth toe secondary to osteomyelitis with diabetic ULCER) Principal diagnosis: #1 left fifth toe osteomyelitis and diabetic foot ulcer status post amputation day #2. #2 diabetes mellitus type 2 insulin dependent covered with NovoLog short-acting to avoid hypoglycemia with currently good control. #3 left fifth toe amputation along with head of the metatarsal removed. Dr. Raymundo vascular surgeon. This is a progress note date of visit date of service 10/27/2018. Patient seen and evaluated [id number]. Patient is comfortable with no specific pain, he status post amputation of the left fifth toe with the head of the metatarsal bone for the underlying o steomyelitis and diabetic ulcer with a history of neuropathy from diabetes mellitus. Patient is doing well he did not have any underlying complication he is continued on the antibiotic through the PIC line, Dr. Raymundo will see him tomorrow and do the dressing and probably he may go home within 24 hour to 48 hours. His vital signs today Temperature 98.2 F oral heart rate 52/m with bradycardia associated with his medication respiratory rate is 18/m and nonlabored, blood pressure 123/74 with a mean 90 T. His oxygen saturation 97% His CBG 120 6 in the morning and at lunch 169 fairly controlled with the short- acting insulin will be planned for the long acting tomorrow with the did decrease the dose of the Lantus. Patient's conscious alert oriented no complaint at this time HEENT negative Neck was supple no JVD no thyromegaly no lymphadenopathy trachea midline and no bruits. Chest is clear to auscultation percussion. Heart regular sinus rhythm no arrhythmias. Abdomen is soft positive bowel sounds no organ enlargement. Extremities: Left foot fifth toe amputation in the date of service was on 10/26/2018, no edema and positive pulses bilateral and symmetric. Neurologically and psychiatry stable general condition Assessment: Status post amputation of the left fifth toe and the head of metatarsal by Dr. Raymundo. Diabetes mellitus currently controlled. And blood pressure also controlled. Plan: Continue the current treatment. We'll be starting the Lantus in a.m. Objective - Vital Signs Vital signs: Vital Signs Temp 98.2 F 10/27/18 12:22 Pulse 52 L 10/27/18 12:22 Resp 18 10/27/18 12:22 BP 123/74 10/27/18 12:22 Pulse Ox 97 10/27/18 12:22 Intake & Output 10/26/18 10/27/18 10/27/18 18:59 06:59 18:59 Intake Total 475 300 Output Total 150 2400 Balance 325 300 -2400 Weight 131.36 kg Intake: IV 475 Oral 300 Output: Urine 100 2400 Estimated Blood Loss 50 Other: Voiding Method Bedside Commode # Voids 1 3 - Labs Labs: Abnormal Lab Results - Last 24 Hours (Table) 10/26/18 10/26/18 10/26/18 Range/Units 15:05 17:19 20:12 POC Glucose (mg/dL) 70 L 177 H 205 H (75-99) mg/dL 10/27/18 10/27/18 Range/Units 07:10 11:54 POC Glucose (mg/dL) 126 H 169 H (75-99) mg/dL Microbiology - Last 24 Hours (Table) 10/26/18 14:43 Gram Stain - Preliminary Toe - Left Fifth Tissue Culture - Preliminary 10/26/18 14:43 Anaerobic Culture - Preliminary Toe - Left Fifth 10/26/18 14:43 Fungal Culture - Preliminary Toe - Left Fifth
[2018-10-27 17:12] LABS: Glucose,Whole Blood 135 mg/dL (75-99)
[2018-10-27 20:43] LABS: Glucose,Whole Blood 173 mg/dL (75-99)
[2018-10-27] MEDS ORDERED: INSULIN DETEMIR (LEVEMIR) 100 UNIT/ML SYR SQ SCH (21:00)
[2018-10-27] MEDS: ATORVASTATIN 10 MG TAB PO SCH (21:00)
[2018-10-27 22:20] VITALS: RESP 20; TEMP 98.3
[2018-10-28] MEDS: PIPERACILLIN-TAZOBACTAM 3.375 GM in SODIUM CHLORIDE 0.9% 100 ML IVPB SCH ×2 (01:00→08:22)
[2018-10-28 05:10] VITALS: BP 152/69; PULSE 55
[2018-10-28 07:19] LABS: Glucose,Whole Blood 181 mg/dL (75-99)
[2018-10-28] MEDS: HYDROCHLOROTHIAZIDE 12.5 MG CAP PO SCH (07:26)
--- NOTE | 2018-10-28 07:26 | PN ---
PROGRESS NOTE This is a 63-year-old diabetic male who had infected callus left foot plantar aspect. The patient went for amputation of the 5th toe along with the head of the metatarsal removed. Today we have changed the dressing. Incision site is clean and healing. The patient is on IV antibiotic. IV antibiotic will be continued. Nonweightbearing. If patient is stable from Infectious Disease point of view, then patient can go home on IV antibiotic. I will follow in my office next week. MMODL / IJN: [id number] /
[2018-10-28] MEDS: INSULIN ASPART (NovoLOG) 100 UNIT/ML VIAL SQ SCH ×3 (07:27→13:06)
[2018-10-28] MEDS ORDERED: INSULIN DETEMIR (LEVEMIR) 100 UNIT/ML SYR SQ SCH ×2 (09:00→21:00)
[2018-10-28 09:13] LABS: Basophils % (A) 0 %; Eosinophils # (A) 0.2 k/uL (0-0.7); Eosinophils % (A) 3 %; HCT 37.7 % (39.0-53.0); HGB 12.6 gm/dL (13.0-17.5); Lymphocytes % (A) 21 %; MCH 28.7 pg (25.0-35.0); MCHC 33.4 g/dL (31.0-37.0); Mean Platelet Volume 7.3; Monocytes # (A) 0.3 k/uL (0-1.0); Monocytes % (A) 7 %; Neutrophils # (A) 3.3 k/uL (1.3-7.7); Neutrophils % (A) 68 %; Platelet Count 165 k/uL (150-450); RBC 4.38 m/uL (4.30-5.90); RDW 13.4 % (11.5-15.5); WBC 4.9 k/uL (3.8-10.6)
[2018-10-28 09:24] LABS: African American GFR (CKD) >90 (>60 ml/min/1.73 sqM); Anion Gap 8 mmol/L; Blood Urea Nitrogen 13 mg/dL (9-20); Calcium 9.3 mg/dL (8.4-10.2); Carbon Dioxide 27 mmol/L (22-30); Chloride 104 mmol/L (98-107); Glucose 235 mg/dL (74-99); Potassium 4.3 mmol/L (3.5-5.1); Sodium 139 mmol/L (137-145)
[2018-10-28 12:15] LABS: Glucose,Whole Blood 193 mg/dL (75-99)
--- NOTE | 2018-10-28 12:53 | P.DS ---
Providers Date of admission: 10/26/18 08:55 Expected date of discharge: 10/28/18 Attending physician: Nick Calvillo Consults: 10/26/18 09:36 Consult Physician Stat Consulting Provider: Mingo Smith Consult Reason/Comments: Osteomyelitis of the feet bilateral Do you want consulting provider notified?: Yes Placement Type Exists?: Yes 10/28/18 07:27 Consult Physician Routine Consulting Provider: Arnaldo Al Consult Reason/Comments: osteomyelitis of the bilateral feet Do you want consulting provider notified?: Already Contacted Primary care physician: Nick Calvillo Discharge summary date of service 10/10/2018. Diagnosis: #1 osteomyelitis of the fifth left toe of the left foot amputation, with the underlying diabetic foot. #2 diabetes mellitus type 2 insulin-dependent. #3 obstructive sleep apnea. Using the CPAP at home. #4 hyperlipidemia controlled #5 continuation of home antibiotic with Zosyn per Dr. Smith infectious disease for continuing the treatment of the osteomyelitis with the Zosyn 3.375 mg every 8 hours. Admission as direct admission: Patient has little wound care treatment on Thursday subsequently seen at that wound care by Dr. Smith and Dr. Raymundo and subsequently they called me Dr. Raymundo to admit the patient for underlying amputation with the failure of only treatment to clear the infection. Hospital course: Patient admitted in the morning and subsequently in the afternoon he had the amputation of the left fifth toe with the head of metatarsal bone. Patient continued on the insulin therapy with adjustment to avoid hypoglycemia as he was nothing by mouth for surgery. Subsequently today patient seen by Dr. Raymundo and he did did change of dressing and cleared him up for discharge if okay with the infectious disease. Subsequently they called Dr. Smith who cleared him for the discharge to be followed as the wound clinic and by both specialists. Exam on the discharge His laboratory indicating that WBC 4.9 hemoglobin 12.6 and a hematocrit 37.7. Chemistry sodium 139, potassium 4.3, his blood sugar in a.m. was 235 despite restarted yet lost night the Levemir because Lantus is not formulary in this hospital. CBG monitored indicating mild hyperglycemia as he resume his meals and for that purpose we return him back to his home medication which is Lantus 10 mg in a.m. and 25 mg in the p.m. and covering with during the day and resuming the metformin. His vital sign indicating temperature 98.3 F oral, heart rate 55/m respiratory rate 20, his blood pressure ranging between 139/65-152/69 and he is on CPAP and room air. Clinical exam: Head was normocephalic and atraumatic pupils equal reactive conjunctiva was pink sclera was nonicteric extraocular muscle movement is intact. Oropharynx natural teeth hearing is normal. Neck was supple no JVD no thyromegaly no lymphadenopathy trachea midline. Chest was clear to auscultation and percussion and no wheezes no rhonchi's and the heart was regular sinus rhythm. Abdomen soft positive bowel sound no tenderness no nausea no vomiting. Skin no rash. Extremities: Left foot fifth toe amputation and the head of the fifth metatarsal by Dr. Raymundo. Right foot diabetic ulcer HEALING well. Neurology, psychiatry stable. Assessment and plan: Discharged home today, IV antibiotic has home by the immigration case manager and communication with Dr. Mingo Smith as he is going to continue the Zosyn 3.375 IV piggyback every 8 and follow-up with Dr. Mingo Smith. Follow-up in the wound clinic. Follow-up with Dr. Raymundo. I will be seeing him in 5 days as outpatient in the office thank you Plan - Discharge Summary Discharge Rx Participant: No New Discharge Prescriptions: New INSULIN ASPART (NovoLOG) [NovoLOG (formulary)] 0 unit SQ ACHS vial Continue metFORMIN HCL [Metformin HCl] 850 mg PO BID Vitamin E (Dl,Tocopheryl Acet) [Vitamin E] 400 unit PO DAILY Cholecalciferol [Vitamin D3 (25 Mcg = 1000 Iu)] 5,000 unit PO DAILY Ascorbic Acid [Vitamin C] 1,000 mg PO DAILY Insulin Aspart [NovoLOG Flexpen] See Protocol SQ ACHS Insulin Aspart [NovoLOG Flexpen] 10 units SQ AC-SUPPER [place]-3 Acid Ethyl Esters [Lovaza] 1 gm PO BID Lisinopril [Zestril] 20 mg PO DAILY Hydrochlorothiazide [Hydrodiuril] 12.5 mg PO DAILY Insulin Glargine,Hum.rec.anlog [Lantus Solostar] 25 unit SQ HS Insulin Glargine,Hum.rec.anlog [Lantus Solostar] 10 unit SQ QAM Pantoprazole Sodium [Protonix] 20 mg PO BID #30 tablet. Primidone [Mysoline] 75 mg PO HS Atorvastatin [Lipitor] 10 mg PO HS Piperacillin-Tazobactam [Zosyn] 3.375 gm IVPB Q6H #168 bag Insulin Aspart [NovoLOG Flexpen] 5 unit SQ AC-BID@0700,1200 Discharge Medication List metFORMIN HCL [Metformin HCl] 850 mg PO BID 10/26/14 [History] Ascorbic Acid [Vitamin C] 1,000 mg PO DAILY 10/27/14 [History] Cholecalciferol [Vitamin D3 (25 Mcg = 1000 Iu)] 5,000 unit PO DAILY 10/27/14 [History] Insulin Aspart [NovoLOG Flexpen] See Protocol SQ ACHS 10/27/14 [History] Vitamin E (Dl,Tocopheryl Acet) [Vitamin E] 400 unit PO DAILY 10/27/14 [History] Insulin Aspart [NovoLOG Flexpen] 10 units SQ AC-SUPPER 11/01/14 [History] Hydrochlorothiazide [Hydrodiuril] 12.5 mg PO DAILY 12/14/16 [History] Insulin Glargine,Hum.rec.anlog [Lantus Solostar] 10 unit SQ QAM 12/14/16 [History] Insulin Glargine,Hum.rec.anlog [Lantus Solostar] 25 unit SQ HS 12/14/16 [History] Lisinopril [Zestril] 20 mg PO DAILY 12/14/16 [History] [place]-3 Acid Ethyl Esters [Lovaza] 1 gm PO BID 12/14/16 [History] Pantoprazole Sodium [Protonix] 20 mg PO BID #30 tablet. 02/04/18 [Rx] Atorvastatin [Lipitor] 10 mg PO HS 10/11/18 [History] Primidone [Mysoline] 75 mg PO HS 10/11/18 [History] Piperacillin-Tazobactam [Zosyn] 3.375 gm IVPB Q6H #168 bag 10/14/18 [Rx] Insulin Aspart [NovoLOG Flexpen] 5 unit SQ AC-BID@0700,1200 10/20/18 [History] INSULIN ASPART (NovoLOG) [NovoLOG (formulary)] 0 unit SQ ACHS vial 10/28/18 [Rx] Follow up Appointment(s)/Referral(s): Ramon Salcare, [NON-STAFF] - [facility],Infusion [NON-STAFF] - Patient Instructions/Handouts: Diabetic Foot Ulcers (DC) Activity/Diet/Wound Care/Special Instructions: aquacel to right foot 2nd toe and covered with gauze or bandaid. dry nonadherent gauze dressing applied over surgical site on left foot and wrapped with kirlex. client is non wt bearing on his left foot.
[2018-10-28] MEDS ORDERED: PROPOFOL 10 MG/ML 20 ML VIAL IV ONE (13:45)
[2018-10-28] MEDS ORDERED: MIDAZOLAM 2 MG/2 ML VIAL ONE (13:45)
[2018-10-28] MEDS ORDERED: fentaNYL (PF) 50 MCG/ML 2 ML AMP ONE (13:45)
[2018-10-28] MEDS ORDERED: KETAMINE 10 MG/ML 20 ML VIAL ONE (13:45)
[2018-10-29] MEDS ORDERED: INSULIN DETEMIR (LEVEMIR) 100 UNIT/ML SYR SQ SCH (09:00)
== END 2018-10-28 14:02 | disposition home health service (06) | DRG 617 ==
LOC: 4MS4W 08:55
PROVIDERS: ADMIT Internal Medicine; ATTEND Internal Medicine
PROC: 0Y6Y0Z0 Detachment at Left 5th Toe, Complete, Open Approach (ICD-10-PCS; principal; 2018-10-26 14:00)
DX: E11.69 Type 2 diabetes mellitus with other specified complication (principal); M86.172 Other acute osteomyelitis, left ankle and foot; L97.526 Non-pressure chronic ulcer of other part of left foot with bone involvement without evidence of necrosis; E11.40 Type 2 diabetes mellitus with diabetic neuropathy, unspecified; E11.621 Type 2 diabetes mellitus with foot ulcer; E11.65 Type 2 diabetes mellitus with hyperglycemia; L97.512 Non-pressure chronic ulcer of other part of right foot with fat layer exposed; E55.9 Vitamin D deficiency, unspecified; R00.1 Bradycardia, unspecified; E78.5 Hyperlipidemia, unspecified; I10 Essential (primary) hypertension; G25.0 Essential tremor; K21.9 Gastro-esophageal reflux disease without esophagitis; G47.33 Obstructive sleep apnea (adult) (pediatric); E66.9 Obesity, unspecified; Z68.37 Body mass index [BMI] 37.0-37.9, adult; Z71.3 Dietary counseling and surveillance; Z79.4 Long term (current) use of insulin; Z79.2 Long term (current) use of antibiotics; Z79.899 Other long term (current) drug therapy; Z98.890 Other specified postprocedural states; Z86.14 Personal history of Methicillin resistant Staphylococcus aureus infection; Z86.010 Personal history of colon polyps; Z87.891 Personal history of nicotine dependence; Z89.422 Acquired absence of other left toe(s); Z80.0 Family history of malignant neoplasm of digestive organs; Z80.3 Family history of malignant neoplasm of breast
CPT/HCPCS: 80048; 85025; 87070; 87075; 87102; 87205

== ENCOUNTER → 2018-12-27 | Outpatient (CLI) | payer BC ==
[2018-12-27 11:59] LABS: Hemoglobin A1C 6.5 % (4.0-6.0)
== END | disposition home or self-care (01) ==
LOC: LABWHC1 07:06
PROVIDERS: ATTEND Internal Medicine
DX: E11.9 Type 2 diabetes mellitus without complications (principal)
CPT/HCPCS: 36415; 83036

== ENCOUNTER → 2019-04-29 | Outpatient (CLI) | payer BC ==
[2019-04-29 11:04] LABS: African American GFR (CKD) 91.1 (60.0-200.0); Anion Gap 6.1 mmol/L (4.00-12.00); Calcium 9.1 mg/dL (8.7-10.3); Carbon Dioxide 29.9 mmol/L (21.6-31.8); Non-African American GFR(CKD) 78.6 (60.0-200.0); Potassium 4.4 mmol/L (3.5-5.5)
[2019-04-29 14:58] LABS: Hemoglobin A1C 6.6 % (4.0-6.0)
== END ==
LOC: LABWHC1 06:49
PROVIDERS: ATTEND Internal Medicine
DX: E87.8 Other disorders of electrolyte and fluid balance, not elsewhere classified (principal); E11.9 Type 2 diabetes mellitus without complications
CPT/HCPCS: 36415; 80048; 83036

== ENCOUNTER → 2019-09-20 | Outpatient (CLI) | payer BC ==
[2019-09-20 09:06] LABS: Basophils % (A) 1 %; Eosinophils # (A) 0.2 k/uL (0-0.7); Eosinophils % (A) 6 %; HCT 43.4 % (39.0-53.0); HGB 14.8 gm/dL (13.0-17.5); Lymphocytes # (A) 1.4 k/uL (1.0-4.8); Lymphocytes % (A) 33 %; MCH 30.2 pg (25.0-35.0); MCHC 34.2 g/dL (31.0-37.0); MCV 88.2 fL (80.0-100.0); Mean Platelet Volume 7.9; Monocytes # (A) 0.3 k/uL (0-1.0); Monocytes % (A) 7 %; Neutrophils # (A) 2.1 k/uL (1.3-7.7); Neutrophils % (A) 51 %; Platelet Count 145 k/uL (150-450); RBC 4.92 m/uL (4.30-5.90); RDW 13.2 % (11.5-15.5); WBC 4.1 k/uL (3.8-10.6)
[2019-09-20 11:21] LABS: Erythrocyte Sedimentation Rate 11 mm/hr (0-15)
[2019-09-20 16:07] LABS: ALT 22 U/L (10-49); AST 25 U/L (14-35); African American GFR (CKD) 103.5 (60.0-200.0); Alkaline Phosphatase 59 U/L (41-126); BUN/Creat Ratio 23.33 Ratio (12.00-20.00); C Reactive Protein <0.4 mg/dL (0.0-0.8); Calcium 9.3 mg/dL (8.7-10.3); Carbon Dioxide 29.9 mmol/L (21.6-31.8); Chloride 105 mmol/L (96-109); Chol/HDL Ratio 3.34; Cholesterol 117 mg/dL (0-200); Creatine Kinase 199 U/L (35-257); Globulin 2.3 g/dL (1.6-3.3); Glucose 140 mg/dL (70-110); LDL Cholesterol,Calculated 62.6 mg/dL (0.0-131.0); Magnesium 1.5 mg/dL (1.5-2.4); Non-African American GFR(CKD) 89.3 (60.0-200.0); Phosphorus 3.4 mg/dL (2.4-5.1); Potassium 4.3 mmol/L (3.5-5.5); Sodium 142 mmol/L (135-145); Total Bilirubin 0.5 mg/dL (0.3-1.2); Total Protein 6.2 g/dL (6.2-8.2)
[2019-09-20 17:27] LABS: Hemoglobin A1C 6.6 % (4.0-6.0)
== END | disposition home or self-care (01) ==
LOC: LABWHC1 08:01
PROVIDERS: ATTEND Internal Medicine
DX: N40.0 Benign prostatic hyperplasia without lower urinary tract symptoms (principal); I10 Essential (primary) hypertension; E87.8 Other disorders of electrolyte and fluid balance, not elsewhere classified; E78.5 Hyperlipidemia, unspecified; E11.65 Type 2 diabetes mellitus with hyperglycemia; E55.9 Vitamin D deficiency, unspecified
CPT/HCPCS: 36415; 80053; 80061; 82306; 82550; 83036; 83735; 84100; 84153; 85025; 85652; 86140

== ENCOUNTER → 2019-12-12 | Outpatient (CLI) | payer BC | LOC: LABPAT 07:18 | PROVIDERS: ATTEND Orthopaedic Surgery | DX: Z01.812 Encounter for preprocedural laboratory examination (principal) | CPT/HCPCS: 87070 ==

== ENCOUNTER → 2019-12-27 | Outpatient (CLI) | payer BC ==
[2019-12-27 07:35] LABS: HCT 41.3 % (39.0-53.0); HGB 13.7 gm/dL (13.0-17.5); MCH 29.4 pg (25.0-35.0); MCHC 33.3 g/dL (31.0-37.0); MCV 88.5 fL (80.0-100.0); Mean Platelet Volume 7.3; Platelet Count 128 k/uL (150-450); RBC 4.67 m/uL (4.30-5.90); RDW 13.1 % (11.5-15.5); WBC 4.5 k/uL (3.8-10.6)
[2019-12-27 07:43] LABS: Partial Thromboplastin Time 22.9 sec (22.0-30.0)
[2019-12-27 07:52] LABS: ALT 19 U/L (4-49); AST 28 U/L (17-59); African American GFR (CKD) >90 (>60 ml/min/1.73 sqM); Albumin 3.7 g/dL (3.5-5.0); Alkaline Phosphatase 54 U/L (38-126); Anion Gap 7 mmol/L; Blood Urea Nitrogen 25 mg/dL (9-20); Calcium 8.9 mg/dL (8.4-10.2); Carbon Dioxide 29 mmol/L (22-30); Chloride 103 mmol/L (98-107); Glucose 144 mg/dL (74-99); Non-African American GFR(CKD) 87 (>60 ml/min/1.73 sqM); Potassium 4.2 mmol/L (3.5-5.1); Sodium 139 mmol/L (137-145); Total Bilirubin 0.5 mg/dL (0.2-1.3); Total Protein 6.5 g/dL (6.3-8.2)
== END | disposition home or self-care (01) ==
LOC: LABPAT 07:01
PROVIDERS: ATTEND Orthopaedic Surgery Sports Medicine
DX: Z01.818 Encounter for other preprocedural examination (principal)
CPT/HCPCS: 36415; 80053; 85027; 85610; 85730

== ENCOUNTER → 2019-12-27 | Outpatient (CLI) | payer BC | END | disposition home or self-care (01) | LOC: LABWHC1 07:04 | PROVIDERS: ATTEND Internal Medicine | DX: R97.20 Elevated prostate specific antigen [PSA] (principal); N40.0 Benign prostatic hyperplasia without lower urinary tract symptoms | CPT/HCPCS: 36415; 84153 ==

== ENCOUNTER 2020-01-26 09:46 | Day surgery (SDC) | payer BC, MEDICARE ==
[2020-01-19 14:31] VITALS: BMI 37.5
[~2020-01-26 09:46] MED LIST: ACETAMINOPHEN TAB 500 MG TAB PO ONE; DEXAMETHASONE SOD PHOSPHATE 10 MG/ML 1 ML VIAL IV ONE; GABAPENTIN 300 MG CAP PO ONE; HYDROmorphone 0.5 MG/0.5 ML SYRINGE IVP PRN; MELOXICAM 7.5 MG TAB PO ONE; MIDAZOLAM 2 MG/2 ML VIAL IV PRN; ONDANSETRON 4 MG/2 ML VIAL IVP ONE; ROPIVACAINE 246.25 MG, EPINEPHrine 0.5 MG, KETOROLAC 30 MG, cloNIDine HCL/PF 80 MCG, WA... MISCELLANE ONE; TRANEXAMIC ACID 1,000 MG in SODIUM CHLORIDE 0.9% 100 ML IVPB ONE; ceFAZolin 3 GM in SODIUM CHLORIDE 0.9% 100 ML IVPB ONE
[2020-01-26 10:40] LABS: Glucose,Whole Blood 185 mg/dL (75-99)
[2020-01-26 11:11] VITALS: RESP 16
[2020-01-26] MEDS: LACTATED RINGERS 1,000 ML IV SCH ×3 (11:13→22:41)
[2020-01-26] MEDS ORDERED: SODIUM CHLORIDE 0.9% 100 ML BAG ONE (11:19)
[2020-01-26] MEDS ORDERED: PROPOFOL 10 MG/ML 20 ML VIAL IV ONE (11:19)
[2020-01-26] MEDS ORDERED: fentaNYL (PF) 50 MCG/ML 2 ML AMP ONE (11:19)
[2020-01-26] MEDS ORDERED: MIDAZOLAM 2 MG/2 ML VIAL ONE (11:19)
[2020-01-26] MEDS ORDERED: TRANEXAMIC ACID 1,000 MG/10 ML VIAL ONE (11:19)
[2020-01-26] MEDS ORDERED: diazePAM 5 MG TAB PO PRN (11:33)
[2020-01-26] MEDS ORDERED: HYDROcodone/APAP 5-325MG 1 EACH TAB PO PRN (11:33)
[2020-01-26] MEDS ORDERED: NA PHOS,M-B/NA PHOS,DI-BA 133 ML ENEMA RECTAL PRN (11:33)
[2020-01-26] MEDS ORDERED: hydrOXYzine pamoate 25 MG CAP PO PRN (11:33)
[2020-01-26] MEDS ORDERED: ONDANSETRON 4 MG/2 ML VIAL IVP PRN (11:33)
[2020-01-26] MEDS ORDERED: HYDROmorphone 0.5 MG/0.5 ML SYRINGE IVP PRN ×3 (11:33)
[2020-01-26] MEDS ORDERED: NALOXONE 0.4 MG/ML 1 ML VIAL IV PRN (11:33)
[2020-01-26] MEDS ORDERED: TEMAZEPAM 15 MG CAP PO PRN (11:33)
[2020-01-26] MEDS ORDERED: HYDROcodone/APAP 10-325MG 1 EACH TAB PO PRN (11:33)
[2020-01-26] MEDS ORDERED: ACETAMINOPHEN TAB 325 MG TAB PO PRN (11:33)
[2020-01-26] MEDS ORDERED: traMADol 50 MG TAB PO PRN (11:33)
[2020-01-26] MEDS ORDERED: bisacodyL 10 MG SUPP RECTAL PRN (11:33)
[2020-01-26] MEDS ORDERED: MAGNESIUM HYDROXIDE 2,400 MG/10 ML CUP PO PRN (11:33)
[2020-01-26] MEDS ORDERED: ceFAZolin 3,000 MG in SODIUM CHLORIDE 0.9% IRRIGATIO 3,000 ML IRRIGATION ONE (11:52)
[2020-01-26] MEDS ORDERED: LACTATED RINGERS 1,000 ML IV ONE (12:55)
[2020-01-26] MEDS ORDERED: ROPIVACAINE 0.2%-NS ON-Q PUMP 1,090 MG, EMPTY PAIN BALL 1 EACH MISCELLANE PRN (13:24)
--- NOTE | 2020-01-26 13:27 | P.ANPRN ---
Procedure Note - Anesthesia - Nerve Block Performed Left Adductor Canal Infusion Time Out Performed: Yes Date of Procedure: 01/26/20 Procedure Start Time: 10:49 Procedure Stop Time: 10:59 Location of Patient: PreOp Indication: Acute Post-Operative Pain, Requested by Surgeon Sedation Type: Sedate with meaningful contact maintained Preparation: Sterile Prep, Sterile Dressing Position: Supine Catheter: Indwelling Needle Types: Pajunk Needle Gauge: 21 Ultrasound used to visualize needle placement: Yes Ultrasound used to observe medication spread: Yes Blood Aspirated: No Pain Paresthesia on Injection Noted: No Resistance on Injection: Normal Image Stored and Saved: Yes Events: Uneventful and Well Tolerated (ropi .5% 20cc plus dexamethasone 4mg)
[2020-01-26 13:33] LABS: Glucose,Whole Blood 195 mg/dL (75-99)
[2020-01-26] MEDS ORDERED: KETOROLAC 15 MG/ML 1 ML VIAL IVP ONE (14:07)
--- NOTE | 2020-01-26 14:14 | XR ---
EXAMINATION TYPE: XR knee limited LT DATE OF EXAM: 01/26/2020 CLINICAL HISTORY: Postoperative evaluation Two views of the left knee are submitted. Identified are changes of total knee arthroplasty with fem oral and tibial components appearing well seated. Postsurgical soft tissue changes are noted. Align ment is anatomic.
[2020-01-26] MEDS: INSULIN ASPART (NovoLOG) 100 UNIT/ML VIAL SQ SCH (17:10)
[2020-01-26 17:11] LABS: Glucose,Whole Blood 272 mg/dL (75-99)
--- NOTE | 2020-01-26 17:58 | P.CON ---
Consult Note - . Consult date: 01/26/20 (medical consult with underlying diabetes mellitus, hypertension.) Assessment/Plan:: this is a medical consult requested by the attending orthopedic surgeon Dr. Lopez . Patient seen and evaluated postoperative with the left total knee arthroplasty. Patient had spinal anesthesia and with the sequelae including minimal nausea and as well as he ate a couple apple which increases in his blood sugar. Patient is status post total knee arthroplasty, history of diabetes mellitus type 2 on insulin dependent He had underlying history of essential tremor hyperlipidemia obesity which has been improved he had also multiple surgery on the feet with the underlying diabetic neuropathy. He had history of proliferative diabetic retinopathy without macular edema from Dr. Restrepo. He has been with degenerative osteoarthritis of the knees and the left knee was bothering now with ambulation and at that time Dr. Reddy Lopez orthopedic surgeon decided to have total knee arthroplasty. Past history of minimal PSA elevation with benign prostatic hypertrophy. He has early-stage glucoma. He had arthritis. Hypertension. Back pain. Glucoma and he had colonoscopy in 30 03 Carpal tunnel left hand by Dr. Krish brandon 12/29/2019. He had left foot fifth digit surgery amputation 2017 and he had also left foot fourth toe surgery on 2019. He had surgery on the tendon of the left middle toe and the date of the surgery 1999 and repeated in 2016. Former smoker was quit in 1982 Family history son and a daughter in good health. . Family history: Father of natural causes at age of 94 with the underlying history of melanoma. Mother bowel problem. Grandmother hypertension, at age of 88 with cancer of the breast. Sr. in good health. ALLERGY unknown. Active medication: Metformin 850 tablet twice a day HCTZ 12.5 mg once daily Lisinopril 20 mg 1 tablet daily Lantus Solo*10 unit subcu in a.m. and 25 units in the p.m. NovoLog flex pen U1 100. 5 units before breakfast, 5 units before lunch, 10 units before supper plus a scale Plan atorvastatin 10 mg at bedtime next aspirin 81 mg after breakfast Fish oil 1000 mg twice a day next vitamin E4 100 units capsule once a day Vitamin D 3 5000 units once a day and Accu-Chek CBG 4 times a day. Vitamin C 1000 mg once a day. These medication adjusted to avoid bleeding after the surgery today of the left knee and subsequently patient will resume his insulin and the second day and other medication that was held to avoid bleeding in the joint to be resumed on discharge. Review of On review of system patient and reviewed 14 bullet and no complaint except postoperative surgery. On exam: Patient conscious alert oriented 3 he was planning to eat supper post surgery his at bedside. His vital sign indicated that his pulse rate 79/m respiratory rate 16 and blood pressure 148/68 on room air. On Head was normocephalic and atraumatic pupils equal reactive conjunctiva was pink sclera was nonicteric. Neck was supple no JVD no thyromegaly no lymphadenopathy trachea midline. Chest: Clear to auscultation percussion. Heart: Regular sinus rhythm with the EKG on the preop done in the office was indicating that he had 56 bpm with sinus bradycardia otherwise normal. Abdomen soft positive bowel sounds no tenderness and four-quadrant. Extremities: He has left total knee arthroplasty and wrapped in Nickolas bandage and dressing. Exam no neurological deficit he had also diabetic neuropathy of both lower extremities. Assessment: #1 is diabetes mellitus insulin-dependent #2 adjusted the insulin for today and from tomorrow will be adjusting the insulin again to his normal at home. #3 will continue his current medication otherwise avoid the medication that [place] bleeding and continue the aspirin. Plan: Continue monitor and the anticoagulation. The orthopedic surgeon regimen. As well as his pain medication from the surgery
[2020-01-26] MEDS ORDERED: ATORVASTATIN 10 MG TAB PO SCH (21:00)
[2020-01-26] MEDS ORDERED: INSULIN DETEMIR (LEVEMIR) 100 UNIT/ML SYR SQ SCH (21:00)
[2020-01-26] MEDS ORDERED: SENNOSIDES-DOCUSATE SODIUM 1 EACH TAB PO SCH (21:00)
[2020-01-26 22:20] LABS: Glucose,Whole Blood 351 mg/dL (75-99)
[2020-01-26] MEDS: ceFAZolin 3 GM in SODIUM CHLORIDE 0.9% 100 ML IVPB SCH (22:40)
[2020-01-26] MEDS: ASPIRIN 81 MG PO SCH (22:40)
[2020-01-26] MEDS: metFORMIN 850 MG TAB PO SCH (22:41)
--- NOTE | 2020-01-27 00:31 | OP ---
OPERATIVE REPORT DATE OF PROCEDURE: 01/26/2020 SURGEON: Reddy Lopez MD HUMAN RESOURCES DEPARTMENT SUPERVISOR: Kervin POWELL. PREOPERATIVE DIAGNOSIS: Left knee osteoarthrosis. POSTOPERATIVE DIAGNOSIS: Left knee osteoarthrosis. OPERATION: Left total knee arthroplasty. ANESTHESIA: Spinal with sedation. ESTIMATED BLOOD LOSS: 100 mL. TOURNIQUET: Tourniquet time was 55 minutes at 250 mmHg. COMPLICATIONS: None apparent. DRAINS: None. DISPOSITION: Postanesthesia care unit. INDICATIONS: Ian is a very pleasant 64-year-old male with longstanding history of left knee pain. History and physical examination was consistent with advanced left knee osteoarthrosis. He has been through significant nonoperative management up to this point. Further treatment options discussed and he has decided to go forward with a left total knee arthroplasty. Risks of procedure were discussed with him in detail. These risks include, but are not limited to risk of infection, nerve damage, bleeding, pain, and a small risk of deep vein thrombosis which could lead to fatal pulmonary embolism. There is also risk of loosening of the implant which could require revision operation. The patient understands these risks. All of his questions were answered to his satisfaction. Appropriate informed consent was obtained. DESCRIPTION OF THE PROCEDURE: Patient identified in preoperative holding area. Surgical site was marked by both the patient and myself. He was given 3 grams of Ancef IV for prophylactic purposes. He was then transferred to the operative suite. He was placed supine on the operating room table. Spinal anesthetic was then administered, dosed per the anesthesia department without apparent complication. Examination under anesthesia was then performed. The patient was 5 to 7 degrees shy of full extension. He had 95 degrees of flexion. Medial collateral ligament, lateral collateral ligament and posterior cruciate ligaments were stable. Tourniquet was then placed high on the left upper thigh well-padded in preparation for surgery. The patient's left lower extremity was than prepped and draped in usual sterile fashion. Standard surgical pause was undertaken to ensure that we were operating on the correct site and that appropriate preoperative antibiotics had been given. All staff in the room were in agreement and we proceeded. The outlines of the patella were marked with surgical pen. A planned 12 cm vertical incision centered over the patella was marked with surgical pen. The leg was then exsanguinated with an Esmarch dressing. The knee was then flexed and tourniquet was inflated to 250 mmHg. The total tourniquet time for the procedure was 55 minutes. Incision was then made with a 10-blade scalpel. Dissection carried down sharply overlying fascia. Great care was taken to minimize the skin flaps. The knee was then exposed using a standard medial parapatellar approach. A small cuff of quadriceps tendon was then left for suturing. He was in quite a bit of varus preoperatively. A standard medial release was then made. Superficial medial collateral ligament was dissected off the bone around to the posterior aspect of the proximal tibia. The medial meniscus was then excised as well. The lateral meniscus was also released anteriorly. The leg was then externally rotated. The patella was everted. The knee was flexed. Retractors were then placed to retract the collateral ligaments. I then proceeded to remove the infrapatellar fat pad. This was excised sharply tangentially with the fibers of the patellar tendon. I then proceeded to remove peripheral osteophytes. This was done with a rongeur. I then proceeded with the distal femoral resection. He did have a small flexion contracture. A planned 11 mm resection was then done. The femoral canal was then entered in the midline of the femur approximately 10 mm anterior to the origin of the posterior cruciate ligament. The aubrey was then advanced down the center of the femur and placed intramedullary. Based on the preoperative radiographs, the angle between the anatomic and mechanical axis of the femur was approximately 4 to 5 degrees. The valgus angle of the distal femoral cutting guide was then set at 4 degrees for the left knee. The distal femoral cutting guide was then advanced with the intramedullary aubrey. This was seated firmly against the femur. I then as mentioned planned to take 11 mm off the distal femur. The cutting block was then secured onto the femur with pins. The jig was removed. The distal femoral cut was made through the slot of the block. The pins were then removed. The distal femoral cutting block was removed. The accuracy of the distal femoral cuts was checked with 2 flat bars. I then proceeded with femoral sizing. Posterior referencing sizing guide was held firmly against the resected distal surface of the femur. The posterior condyles were resting on the posterior plane of the guide. The sizing stylus was then placed onto the anterior femur. The size measured with a size 11. I then assessed for femoral rotation. Plan was for 3 degrees of external rotation. Three degrees external rotation was placed onto the jig. These holes were then marked. I then confirmed the rotation by 3 separate methods. This was done using epicondylar axis as well as Whitesides line and posterior referencing. It was deemed that the external rotation was proper. I then went forward placing the femoral cutting block. This was placed over the previously placed pin holes. The Branden wing was then placed onto the anterior slots to ensure that we would not notch the anterior femur with the anterior femoral cut. I then proceeded with the anterior femoral cut. This was flush with the anterior cortex of the femur. The posterior cuts were then made followed by the anterior chamfer cut, then the posterior chamfer cut. The cutting block was then removed. Throughout the resection, the collateral ligaments were protected with retractors. I then placed a trial size 11 femur. It fit very nicely medial and lateral and fit flush with the distal end of the femur. The drill holes were then made. I then proceeded with the tibial cut. I planned for cruciate-retaining knee. The guide was placed and set for varus, valgus and for slope. Height was set for approximate 2 mm resection from the medial tibial plateau which was the lower side. I was happy with the alignment amount of resection. The cutting block was then pinned to the proximal tibia. The alignment aubrey was removed. The proximal tibia was resected with a reciprocating saw. Again this was done with retractors protecting the collateral ligaments as well as the posterior cruciate ligament. I then proceeded to evaluate the flexion and extension gaps. A 10 mm block was then placed. The flexion and extension gaps were equal. I then proceeded with resection of posterior osteophytes. He had very minimal posterior osteophytes. This was done using curved osteotome. This was resected with the posterior osteophytes and posterior capsule stripping was done off the posterior aspect of the femur at this time. The osteophytes were then removed. I then proceeded with resection of the patella. The thickness of the patella was measured using the caliper. The thickness was 22 mm. The thickness of the anticipated patellar dome was taken into account. Resection was then performed and confirmed to be equal in 4 quadrants using a caliper. Approximately 14 mm of bone remained after resection. A 35 x 9 mm standard patellar trial was then placed. The holes drilled and the trial was then placed. I then proceeded with sizing tibial plate. A size F tibial plate fit very nicely. I then placed the trial femur, the tibial tray and the patellar button. A 10 mm trial tibial insert was also placed. The components fit very nicely. He had full extension and flexion. The extension and flexion gaps were equal and stable both varus and valgus stress. The patella tracked appropriately. The tibial tray rotation was then marked with Bovie. This was externally rotated properly. I then proceeded with tibial preparation. I first drilled the femoral holes and removed femoral component. Tibial tray was then set for proper external rotation as well as medial and lateral placement onto the tibia. It was then pinned into place. I then proceeded with punching the keel. I then decided to proceed with cementing of all of our components. The knee was thoroughly irrigated with sterile saline solution via pulse lavage. The lateral geniculate artery was identified and cauterized. All blood was removed from the bone of the tibia, femur and patella with pulse lavage. I then proceeded with cementing. Two packs of antibiotic bone cement were prepared on the back table by the certified surgical assistant. I then proceeded with cementing of the tibia first. The cement was impacted in the keel as well as deeply seated in the bone. A second coat of cement was then placed. The tibia was then impacted into place. Excess cement was removed with Cushings and jokers. I then proceeded with cementing of the femoral component. Femoral component was also cemented using standard technique. Excess cement was removed. A 10 mm trial insert was then placed into the knee. It was brought into full extension with a constant axial load placed until the cement had hardened. The patellar component was then cemented. This was held firmly with a compressive device until the cement had dried. When the cement had dried, the knee was taken out of extension. All excess cement was removed from around the prosthesis. I then trialed the knee with a 10 mm insert. Flexion and extension gaps were appropriate. The knee was stable. It came into full extension. I decided to go for the 10 mm medial congruent cross-linked cruciate- retaining tibial insert. Polyethylene was then placed on the tibial tray and locked into place. The knee was then reduced. The knee was again further irrigated with sterile saline solution with antibiotic added. The tourniquet was then deflated. The total tourniquet time for the procedure was 55 minutes at 250 mmHg. Final components were Jeny Persona size 11 cruciate-retaining femoral component, a size F tibial tray, a 10 mm medial congruent cruciate-retaining polyethylene insert and a 35 x 9 mm patella. I then proceeded with closure. Again, the knee was thoroughly irrigated. The quadriceps tendon and the medial retinaculum were reapproximated with #2 Ethibond suture. The extensor mechanism was then closed with a running #2 Quill suture. Subcutaneous tissues were closed with 2-0 Vicryl interrupted suture. The skin was closed with a running 3-0 Quill suture. Dermabond was applied to the incision. Sterile compressive dressing was then applied. All sponge and needle counts were deemed correct prior to closure. The patient tolerated procedure without apparent complication. He was transferred to the recovery room in stable condition. MMODL / IJN: [id number] /
[2020-01-27] MEDS: ceFAZolin 3 GM in SODIUM CHLORIDE 0.9% 100 ML IVPB SCH (02:40)
[2020-01-27] MEDS: LACTATED RINGERS 1,000 ML IV SCH ×2 (04:50→08:09)
[2020-01-27 07:04] LABS: Basophils % (A) 0 %; Eosinophils % (A) 0 %; HCT 36.6 % (39.0-53.0); HGB 12.4 gm/dL (13.0-17.5); Lymphocytes % (A) 10 %; MCH 29.3 pg (25.0-35.0); MCV 86.2 fL (80.0-100.0); Mean Platelet Volume 7.6; Monocytes # (A) 0.6 k/uL (0-1.0); Monocytes % (A) 6 %; Neutrophils % (A) 84 %; Platelet Count 133 k/uL (150-450); RBC 4.24 m/uL (4.30-5.90); RDW 12.6 % (11.5-15.5); WBC 10.7 k/uL (3.8-10.6)
--- NOTE | 2020-01-27 07:04 | P.PN ---
Progress Note - Text 01/27/20 651am 64-year-old male status post total knee replacement. Patient seen and evaluated this morning, patient has an On-Q pump for postop pain control with the solution running at 8 mL an hour. Patient has a VAS of 3 at rest. No complains of nausea vomiting. Plan to continue On-Q pump infusion at 8 mL an hour
[2020-01-27 07:28] LABS: Glucose,Whole Blood 280 mg/dL (75-99)
[2020-01-27 07:42] VITALS: BP 150/74; PULSE 70; TEMP 98.4
[2020-01-27] MEDS: metFORMIN 850 MG TAB PO SCH (08:00)
[2020-01-27] MEDS: ASPIRIN 81 MG PO SCH (08:01)
[2020-01-27] MEDS: INSULIN ASPART (NovoLOG) 100 UNIT/ML VIAL SQ SCH ×2 (08:04→11:58)
[2020-01-27] MEDS ORDERED: hydroCHLOROthiazide 12.5 MG CAP PO SCH (09:00)
[2020-01-27] MEDS ORDERED: NON FORMULARY DRUG (Aspirin [Adult Low Dose Aspirin Ec] 81 MG Tablet.Dr) PO SCH (09:00)
[2020-01-27] MEDS ORDERED: lisinopriL 20 MG TAB PO SCH (09:00)
[2020-01-27 11:54] LABS: Glucose,Whole Blood 232 mg/dL (75-99)
[2020-01-27] MEDS ORDERED: MULTIVITAMINS, THERA 1 EACH TAB PO SCH (12:00)
--- NOTE | 2020-01-27 12:20 | P.DS ---
Providers Expected date of discharge: 01/27/20 Attending physician: Reddy Lopez Consults: 01/26/20 11:33 Consult Physician Routine Consulting Provider: Nick Calvillo Consult Reason/Comments: post op medical management Do you want consulting provider notified?: Yes Primary care physician: Nick Calvillo - Discharge Diagnosis(es) (1) Status post total left knee replacement Patient was admitted to the OR on 01/26/2020 to undergo a left total knee arthroplasty. He had failed conservative measures as an outpatient and desired to proceed with elective surgery after given informed consent. He underwent the above procedure which he tolerated well without complication. Postoperative hospital course has remained without complication. On day of discharge he is afebrile, vital signs stable, labs within acceptable ranges, tolerating by mouth meds and diet, voiding without difficulty, positive flatus, denies abdominal pain or calf pain, pain is controlled on oral pain medication and has no new complaints. Wound is benign, neurovascular status is intact, calf is soft and nontender, abdomen soft and nontender. Review of systems is negative for numbness, tingling, fever, chills, chest pain, shortness of breath, nausea, vomiting, dizziness, headaches, slurred speech or other. Current Visit: Yes Status: Acute Priority: Medium Procedures: LTKA Patient Condition at Discharge: Good Plan - Discharge Summary Discharge Rx Participant: Yes New Discharge Prescriptions: New Aspirin [Adult Low Dose Aspirin EC] 81 mg PO BID #60 tablet. HYDROcodone/APAP 7.5-325MG [[place] 7.5-325] 1 - 2 each PO Q6HR PRN #56 tab PRN Reason: Pain No Action metFORMIN HCL [Metformin HCl] 850 mg PO BID Vitamin E (Dl,Tocopheryl Acet) [Vitamin E] 400 unit PO DAILY Cholecalciferol [Vitamin D3 (25 Mcg = 1000 Iu)] 5,000 unit PO DAILY Ascorbic Acid [Vitamin C] 1,000 mg PO DAILY Insulin Aspart [NovoLOG Flexpen] See Protocol SQ HS Insulin Aspart [NovoLOG Flexpen] 15 units SQ AC-SUPPER [place]-3 Acid Ethyl Esters [Lovaza] 1 gm PO BID lisinopriL [Zestril] 20 mg PO DAILY hydroCHLOROthiazide [Hydrodiuril] 12.5 mg PO DAILY Insulin Glargine,Hum.rec.anlog [Lantus Solostar] 25 unit SQ HS Insulin Glargine,Hum.rec.anlog [Lantus Solostar] 10 unit SQ QAM Atorvastatin [Lipitor] 10 mg PO HS Insulin Aspart [NovoLOG Flexpen] 5 unit SQ AC-BID@0700,1200 Aspirin [Adult Low Dose Aspirin EC] 81 mg PO DAILY Discharge Medication List metFORMIN HCL [Metformin HCl] 850 mg PO BID 10/26/14 [History] Ascorbic Acid [Vitamin C] 1,000 mg PO DAILY 10/27/14 [History] Cholecalciferol [Vitamin D3 (25 Mcg = 1000 Iu)] 5,000 unit PO DAILY 10/27/14 [History] Insulin Aspart [NovoLOG Flexpen] See Protocol SQ HS 10/27/14 [History] Vitamin E (Dl,Tocopheryl Acet) [Vitamin E] 400 unit PO DAILY 10/27/14 [History] Insulin Aspart [NovoLOG Flexpen] 15 units SQ AC-SUPPER 11/01/14 [History] Insulin Glargine,Hum.rec.anlog [Lantus Solostar] 10 unit SQ QAM 12/14/16 [History] Insulin Glargine,Hum.rec.anlog [Lantus Solostar] 25 unit SQ HS 12/14/16 [History] [place]-3 Acid Ethyl Esters [Lovaza] 1 gm PO BID 12/14/16 [History] hydroCHLOROthiazide [Hydrodiuril] 12.5 mg PO DAILY 12/14/16 [History] lisinopriL [Zestril] 20 mg PO DAILY 12/14/16 [History] Atorvastatin [Lipitor] 10 mg PO HS 10/11/18 [History] Insulin Aspart [NovoLOG Flexpen] 5 unit SQ AC-BID@0700,1200 10/20/18 [History] Aspirin [Adult Low Dose Aspirin EC] 81 mg PO DAILY 01/19/20 [History] Aspirin [Adult Low Dose Aspirin EC] 81 mg PO BID #60 tablet. 01/27/20 [Rx] HYDROcodone/APAP 7.5-325MG [[place] 7.5-325] 1 - 2 each PO Q6HR PRN #56 tab 01/27/20 [Rx] Follow up Appointment(s)/Referral(s): [facility], [NON-STAFF] - As Needed Reddy Lopez MD [STAFF PHYSICIAN] - 10 Days Activity/Diet/Wound Care/Special Instructions: Keep wound clean and dry Take meds as directed Follow-up with Dr. Lopez in office Weight bear as tolerated May shower in 3 days if no bleeding Discharge Disposition: HOME WITH HOME HEALTH SERVICES
[2020-01-27] MEDS ORDERED: INSULIN ASPART (NovoLOG) 100 UNIT/ML VIAL SQ SCH ×2 (12:30→17:30)
--- NOTE | 2020-01-27 12:36 | P.PN ---
Subjective Progress Note Date: 01/27/20 Principal diagnosis: left total knee arthroplasty by Dr. Andres Lopez. this is a progress note follow-up on medical consult with the underlying history of diabetes mellitus. Patient seen today and evaluated and discussed with him the medication and no change of his current programand hold other medication that he has taken at home. Patient is conscious alert oriented 3. HEENT was negative Oropharynx natural teas and able to eat and swallow normally and he was eating lunch in the time. Chest was clear to auscultation and percussion Heart was regular sinus rhythm no dysrhythmia. Abdomen soft positive bowel sounds no nausea no vomiting and no tenderness. Extremities he had mild edema of the lower extremities on the left side which is expected post total knee arthroplasty pulses was intact. Neuropsychiatry: Stable general condition stable morbid. Vital sign temperature 98.4 F oral pulse rate 70/m regular sinus, respiratory rate 16/m normal nonlabored. Blood pressure was earlier 127/67 and now 150/74 his pulse ox 98% his left knee pain has been controlled by the medication her orthopedic surgeons. laboratory: WBC 10.7, hemoglobin 12.4, hematocrit 36.6, and CBG POC indicating hyperglycemia with a blood sugar today 280 and 232 and we changing the regimen of the insulin as he was at home which has better controlled for his blood sugar and he is comfortable with it. Assessment: Diabetes mellitus type 2 insulin-dependent. Status post left knee total arthroplasty. And the diabetic neuropathy of the lower extremities. Plan: Discussed with the patient in detail that he returned back to all his home medication and will see him in the office in the 1 week for follow-up on his blood sugar and blood pressure. Objective - Vital Signs Vital signs: Vital Signs Temp 98.4 F 01/27/20 07:40 Pulse 70 01/27/20 08:00 Resp 16 01/27/20 08:00 BP 150/74 01/27/20 07:40 Pulse Ox 98 01/27/20 07:40 Intake & Output 01/26/20 01/27/20 01/27/20 18:59 06:59 18:59 Intake Total 1301 1200 220 Output Total 100 Balance 1201 1200 220 Weight 135.3 kg Intake: IV 1301 Intake, IV Titration 1200 Amount Lactated Ringers 1,000 ml 1200 @ 100 mls/hr IV .Q10H [facility] Rx#:[id number] Oral 220 Output: Estimated Blood Loss 100 Other: Voiding Method Toilet Toilet # Voids 2 - Labs CBC & Chem 7: 01/27/20 06:44 Labs: Abnormal Lab Results - Last 24 Hours (Table) 01/26/20 01/26/20 01/26/20 Range/Units 13:31 16:58 22:19 WBC (3.8-10.6) k/uL RBC (4.30-5.90) m/uL Hgb (13.0-17.5) gm/dL Hct (39.0-53.0) % Plt Count (150-450) k/uL Neutrophils # (1.3-7.7) k/uL POC Glucose (mg/dL) 195 H 272 H 351 H (75-99) mg/dL 01/27/20 01/27/20 01/27/20 Range/Units 06:44 07:10 11:44 WBC 10.7 H (3.8-10.6) k/uL RBC 4.24 L (4.30-5.90) m/uL Hgb 12.4 L (13.0-17.5) gm/dL Hct 36.6 L (39.0-53.0) % Plt Count 133 L (150-450) k/uL Neutrophils # 9.0 H (1.3-7.7) k/uL POC Glucose (mg/dL) 280 H 232 H (75-99) mg/dL
--- NOTE | 2020-01-27 12:42 | P.PN ---
Progress Note - Text Progress Note Date: 01/27/20 (obstructive sleep apnea) continue CPAP at home.
[2020-01-27] MEDS ORDERED: INSULIN DETEMIR (LEVEMIR) 100 UNIT/ML SYR SQ SCH (21:00)
[2020-01-27] MEDS ORDERED: NON FORMULARY DRUG (Omega-3 Acid Ethyl Esters [Lovaza] 1 GM Capsule) PO SCH (21:00)
[2020-01-28] MEDS ORDERED: INSULIN ASPART (NovoLOG) 100 UNIT/ML VIAL SQ SCH (07:00)
[2020-01-28] MEDS ORDERED: ASCORBIC ACID 500 MG TAB PO SCH (09:00)
[2020-01-28] MEDS ORDERED: VITAMIN E (DL,TOCOPHERYL ACET) 400 UNIT CAP PO SCH (09:00)
[2020-01-28] MEDS ORDERED: INSULIN DETEMIR (LEVEMIR) 100 UNIT/ML SYR SQ SCH (09:00)
[2020-01-28] MEDS ORDERED: CHOLECALCIFEROL 1,000 UNIT TAB PO SCH (09:00)
== END 2020-01-27 14:30 | disposition home health service (06) ==
LOC: OR 09:46 → 4SSUR 13:23 → OR 01-27 14:30
PROVIDERS: ATTEND Orthopaedic Surgery Sports Medicine
DX: M17.12 Unilateral primary osteoarthritis, left knee (principal); E78.5 Hyperlipidemia, unspecified; I10 Essential (primary) hypertension; E11.40 Type 2 diabetes mellitus with diabetic neuropathy, unspecified; G47.33 Obstructive sleep apnea (adult) (pediatric); Z99.89 Dependence on other enabling machines and devices; G25.0 Essential tremor; Z97.3 Presence of spectacles and contact lenses; Z98.890 Other specified postprocedural states; Z87.891 Personal history of nicotine dependence; E66.01 Morbid (severe) obesity due to excess calories; Z68.38 Body mass index [BMI] 38.0-38.9, adult; N40.0 Benign prostatic hyperplasia without lower urinary tract symptoms; H40.9 Unspecified glaucoma; M54.9 Dorsalgia, unspecified; Z89.422 Acquired absence of other left toe(s); Z80.8 Family history of malignant neoplasm of other organs or systems; Z82.49 Family history of ischemic heart disease and other diseases of the circulatory system; Z80.3 Family history of malignant neoplasm of breast; Z79.899 Other long term (current) drug therapy; Z79.82 Long term (current) use of aspirin; Z79.4 Long term (current) use of insulin
CPT/HCPCS: 97110; 97161; 64448; 76942; 85025; 88300; 73560; 27447; C1776; C1713; J2250; J0171; J1100; J0690 ×3; J2405; J3010; J1885 ×2; J2795 ×2; J2704; J0735; J1170

== ENCOUNTER → 2020-02-07 | Outpatient (CLI) | payer BC ==
--- NOTE | 2020-02-07 12:54 | US ---
EXAMINATION TYPE: US carotid duplex BILAT DATE OF EXAM: 02/07/2020 COMPARISON: NONE CLINICAL HISTORY: R55 SYNCOPE. syncope EXAM MEASUREMENTS: RIGHT: Peak Systolic Velocity (PSV) cm/sec ----- Right CCA: 118.5 ----- Right ICA: 128.9 ----- Right ECA: 144.7 ICA/CCA ratio: 1.1 RIGHT: End Diastole cm/sec ----- Right CCA: 20.2 ----- Right ICA: 47.4 ----- Right ECA: 13.9 LEFT: Peak Systolic Velocity (PSV) cm/sec ----- Left CCA: 113.4 ----- Left ICA: 116.0 ----- Left ECA: 112.1 ICA/CCA ratio: 1.0 LEFT: End Diastole cm/sec ----- Left CCA: 21.5 ----- Left ICA: 29.2 ----- Left ECA: 9.8 VERTEBRALS (direction of flow): Right Vertebral: Antegrade Left Vertebral: Antegrade Rhythm: Normal Mild plaque bilateral bifurcations. no evidence of significant stenosis IMPRESSION: 1. Mild atherosclerotic plaque with no significant hemodynamic stenosis as visualized. Criteria for Assigning % of Stenosis / Diameter reduction (Estimation based on the indirect measurements of the internal carotid artery velocities (ICA PSV). 1. Normal (no stenosis)=ICA PSV < 125 cm/s: ratio < 2.0: ICA EDV<40 cm/s. 2. Less than 50% stenosis=ICA PSV < 125 cm/s: ratio < 2.0: ICA EDV<40 cm/s. 3. 50 to 69% stenosis=ICA PSV of 125 to 230 cm/s: ration 2.0 ? 4.0: ICA EDV 40-100 cm/s. 4. Greater than 70% stenosis to near occlusion= ICA PSV > 230 cm/s: ratio > 4.0: ICA EDV > 100 cm/s. 5. Near occlusion= ICA PSV velocities may be low or undetectable: variable ratio and ICA EDV. 6. Total occlusion=unable to detect flow.
--- NOTE | 2020-02-07 12:54 | US ---
EXAMINATION TYPE: US venous doppler duplex LE LT DATE OF EXAM: 02/07/2020 12:31 PM COMPARISON: NONE CLINICAL HISTORY: R22.42 SWELLING OF LT LOWER LIMB. left knee replacement 01/26/20, left leg pain and edema SIDE PERFORMED: left TECHNIQUE: The lower extremity deep venous system is examined utilizing real time linear array sonog ravi with graded compression, doppler sonography and color-flow sonography. VESSELS IMAGED: External Iliac Vein (EIV) Common Femoral Vein Deep Femoral Vein Greater Saphenous Vein * Femoral Vein Popliteal Vein Small Saphenous Vein * Proximal Calf Veins (* superficial vessels) Left Leg: no evidence of DVT IMPRESSION: Grayscale, color doppler, spectral doppler imaging performed of the deep veins of the lo wer extremities. There is normal flow, compressibility, vascular waveforms.
[2020-02-07 13:26] LABS: Basophils % (A) 1 %; Eosinophils # (A) 0.2 k/uL (0-0.7); Eosinophils % (A) 3 %; HGB 11.9 gm/dL (13.0-17.5); Lymphocytes # (A) 1.3 k/uL (1.0-4.8); Lymphocytes % (A) 20 %; MCH 29.3 pg (25.0-35.0); MCV 88.6 fL (80.0-100.0); Monocytes # (A) 0.3 k/uL (0-1.0); Monocytes % (A) 5 %; Neutrophils # (A) 4.8 k/uL (1.3-7.7); Neutrophils % (A) 71 %; Platelet Count 210 k/uL (150-450); RBC 4.07 m/uL (4.30-5.90); RDW 13.4 % (11.5-15.5); WBC 6.8 k/uL (3.8-10.6)
[2020-02-07 13:38] LABS: ALT 16 U/L (4-49); AST 24 U/L (17-59); African American GFR (CKD) >90 (>60 ml/min/1.73 sqM); Albumin 3.8 g/dL (3.5-5.0); Alkaline Phosphatase 81 U/L (38-126); Anion Gap 6 mmol/L; Blood Urea Nitrogen 19 mg/dL (9-20); Calcium 9.2 mg/dL (8.4-10.2); Carbon Dioxide 30 mmol/L (22-30); Chloride 103 mmol/L (98-107); Glucose 136 mg/dL (74-99); Non-African American GFR(CKD) 88 (>60 ml/min/1.73 sqM); Potassium 4.3 mmol/L (3.5-5.1); Sodium 139 mmol/L (137-145); Total Bilirubin 1.1 mg/dL (0.2-1.3); Total Protein 6.8 g/dL (6.3-8.2)
[2020-02-07 16:13] LABS: Erythrocyte Sedimentation Rate 48 mm/hr (0-15)
== END | disposition home or self-care (01) ==
LOC: RADUSWWP 11:50
PROVIDERS: ATTEND Internal Medicine
DX: I65.23 Occlusion and stenosis of bilateral carotid arteries (principal); R22.42 Localized swelling, mass and lump, left lower limb
CPT/HCPCS: 36415; 80053; 85025; 85379; 85652; 93880

== ENCOUNTER → 2020-07-02 | Outpatient (CLI) | payer MEDICARE ==
[2020-07-02 15:26] LABS: African American GFR (CKD) 90.5 (60.0-200.0); Anion Gap 5.5 mmol/L (4.00-12.00); Calcium 8.8 mg/dL (8.7-10.3); Carbon Dioxide 28.5 mmol/L (21.6-31.8); Non-African American GFR(CKD) 78.1 (60.0-200.0); Potassium 4.2 mmol/L (3.5-5.5)
[2020-07-02 17:15] LABS: Hemoglobin A1C 7.4 % (4.0-6.0)
== END | disposition home or self-care (01) ==
LOC: LABWHC1 09:12
PROVIDERS: ATTEND Internal Medicine
DX: E11.65 Type 2 diabetes mellitus with hyperglycemia (principal); E87.8 Other disorders of electrolyte and fluid balance, not elsewhere classified
CPT/HCPCS: 36415; 80048; 83036

== ENCOUNTER → 2020-09-26 | Outpatient (CLI) | payer MEDICARE ==
[2020-09-26 11:08] LABS: Basophils # (A) 0.02 X 10*3/uL (0.00-0.10); Basophils % (A) 0.4 %; Eosinophils # (A) 0.34 X 10*3/uL (0.04-0.35); Eosinophils % (A) 7.5 %; HCT 40.9 % (39.6-50.0); HGB 13.6 g/dL (13.0-17.0); Lymphocytes # (A) 1.52 X 10*3/uL (0.90-5.00); Lymphocytes % (A) 33.6 %; MCH 29.9 pg (27.0-32.0); MCHC 33.3 g/dL (32.0-37.0); MCV 89.9 fL (80.0-97.0); Mean Platelet Volume 10.3 fL (9.5-12.2); Monocytes # (A) 0.46 X 10*3/uL (0.20-1.00); Monocytes % (A) 10.2 %; Neutrophils # (A) 2.16 X 10*3/uL (1.80-7.70); Neutrophils % (A) 47.9 %; Platelet Count 158 X 10*3/uL (140-440); RBC 4.55 X 10*6/uL (4.40-5.60); RDW 12.8 % (11.5-14.5); WBC 4.52 X 10*3/uL (4.50-10.00)
[2020-09-26 15:09] LABS: Erythrocyte Sedimentation Rate 23 mm/Hr (0-20)
[2020-09-26 15:29] LABS: African American GFR (CKD) 80.6 (60.0-200.0); Albumin 4.1 g/dL (3.80-4.90); Albumin/Globulin Ratio 1.71 (1.60-3.17); Anion Gap 10.2 mmol/L (4.00-12.00); BUN/Creat Ratio 17.27 Ratio (12.00-20.00); C Reactive Protein 0.8 mg/dL (0.0-0.8); Calcium 9.3 mg/dL (8.7-10.3); Carbon Dioxide 26.8 mmol/L (21.6-31.8); Chol/HDL Ratio 3.49; Globulin 2.4 g/dL (1.6-3.3); LDL Cholesterol,Calculated 85.8 mg/dL (0.0-131.0); Non-African American GFR(CKD) 69.6 (60.0-200.0); Prostate Specific Antigen 4.5 ng/mL (0.0-4.5); Total Bilirubin 0.7 mg/dL (0.3-1.2); Total Protein 6.5 g/dL (6.2-8.2); Uric Acid 7.4 mg/dL (3.7-8.7); VLDL Calculation 21.2 mg/dL (5.00-40.00)
== END | disposition home or self-care (01) ==
LOC: LABWHC1 07:13
PROVIDERS: ATTEND Internal Medicine
DX: Z00.00 Encounter for general adult medical examination without abnormal findings (principal); E11.65 Type 2 diabetes mellitus with hyperglycemia; N40.0 Benign prostatic hyperplasia without lower urinary tract symptoms; I10 Essential (primary) hypertension; M10.9 Gout, unspecified; E78.5 Hyperlipidemia, unspecified; E03.9 Hypothyroidism, unspecified; E55.9 Vitamin D deficiency, unspecified; R80.9 Proteinuria, unspecified
CPT/HCPCS: 36415; 80053; 80061; 82306; 82550; 83036; 84153; 84443; 84550; 85025; 85652; 86140

== ENCOUNTER → 2020-11-05 | Outpatient (CLI) | payer MEDICARE ==
--- NOTE | 2020-11-06 12:39 | US ---
EXAMINATION TYPE: US thyroid st tissue head/neck DATE OF EXAM: 11/05/2020 COMPARISON: NONE CLINICAL HISTORY: R22.0 SWELLING,MASS,PALPABLE ABNORMALITY. Palpable lump right neck x couple months At the site of palpable lump in the right neck under mandible, there is a: 0.8 x 0.6 x 0.8cm superfic ial slightly hyperechoic structure seen. This does not definitively represent a lymph node and is non specific. IMPRESSION: 1. Nonspecific, slightly hyperechoic structure at the site of palpable lump to the right of midline i nferior to the mandible. This is indeterminate. An MRI or fine-needle aspiration with ultrasound coul d be obtained.
== END | disposition home or self-care (01) ==
LOC: RADUSWWP 16:44
PROVIDERS: ATTEND Internal Medicine
DX: R22.1 Localized swelling, mass and lump, neck (principal)
CPT/HCPCS: 76536

== ENCOUNTER 2020-12-14 14:26 | Observation (INO) | payer MEDICARE ==
--- NOTE | 2020-12-14 14:37 | ED ---
General Adult HPI - General Chief complaint: Syncope Stated complaint: Syncope Time Seen by Provider: 12/14/20 14:28 Source: patient, EMS, RN notes reviewed Mode of arrival: EMS Limitations: no limitations - History of Present Illness Initial comments: Patient is a pleasant 65-year-old male presenting to the emergency department following syncopal episode. Patient was working in his yard moving branches and burning them. Moderate exertion. Patient then passed out. Patient does not recall the episode remembers waking up on the ground. Patient then went inside and showered. Patient continued to sweat. Patient states there may be some minimal associated dyspnea. Patient does have a history of atrial flutter and is on anticoagulation for this. Patient denies ever having any chest discomfort. Still no chest discomfort at this time. Patient is symptom-free. No headache or weakness or confusion or speech problems. Patient denies injury. - Related Data Home Medications Medication Instructions Recorded Confirmed metFORMIN HCL [Metformin HCl] 850 mg PO BID 10/26/14 12/14/20 Ascorbic Acid [Vitamin C] 1,000 mg PO DAILY 10/27/14 12/14/20 Cholecalciferol [Vitamin D3 (25 5,000 unit PO DAILY 10/27/14 12/14/20 Mcg = 1000 Iu)] Insulin Aspart [NovoLOG Flexpen] See Protocol SQ AC-TID 10/27/14 12/14/20 Vitamin E (Dl,Tocopheryl Acet) 400 unit PO DAILY 10/27/14 12/14/20 [Vitamin E (400 Iu = 180 mg)] Insulin Aspart [NovoLOG Flexpen] 15 units SQ AC-SUPPER 11/01/14 12/14/20 Insulin Glargine,Hum.rec.anlog See Protocol SQ BID 12/14/16 12/14/20 [Lantus Solostar] hydroCHLOROthiazide [Hydrodiuril] 12.5 mg PO DAILY 12/14/16 12/14/20 lisinopriL [Zestril] 20 mg PO DAILY 12/14/16 12/14/20 Insulin Aspart [NovoLOG Flexpen] 5 unit SQ AC-BID@0700,1200 10/20/18 12/14/20 Aspirin [Adult Low Dose Aspirin EC] 81 mg PO DAILY 01/19/20 12/14/20 Atorvastatin [Lipitor] 20 mg PO HS 12/14/20 12/14/20 Cephalexin [Keflex] 500 mg PO TID 12/14/20 12/14/20 Ketorolac 0.5% Ophth Soln [Acular] 1 drops LEFT EYE BID 12/14/20 12/14/20 L.acidoph,Paracasei, B.lactis 1 cap PO DAILY 12/14/20 12/14/20 [Probiotic] Pioglitazone HCl 15 mg PO DAILY 12/14/20 12/14/20 Rivaroxaban [Xarelto] 20 mg PO W/SUPPER 12/14/20 12/14/20 Allergies Allergy/AdvReac Type Severity Reaction Status Date / Time No Known Allergies Allergy Verified 12/14/20 14:55 Review of Systems ROS Statement: Those systems with pertinent positive or pertinent negative responses have been documented in the HPI. ROS Other: All systems not noted in ROS Statement are negative. Constitutional: Denies: fever Eyes: Denies: eye pain ENT: Denies: ear pain Respiratory: Reports: as per HPI. Denies: cough Cardiovascular: Denies: chest pain Endocrine: Denies: fatigue Gastrointestinal: Denies: abdominal pain Genitourinary: Denies: dysuria Musculoskeletal: Denies: back pain Skin: Denies: rash Neurological: Denies: weakness Past Medical History Past Medical History: Diabetes Mellitus, Hyperlipidemia, Hypertension, Sleep Apnea/CPAP/BIPAP Additional Past Medical History / Comment(s): Pt recently admitted to [facility] on 10/11/18 with osteomyelitis and diabetic foot ulcers bilateral feet. Other Hx: IDDM type II, neuropathy bilateral feet, diabetic ulcers bilateral feet (current) and bilateral lower legs (healed), CARLYN with Cpap, essential tremors, carpal tunnel syndrome bilaterally. History of Any Multi-Drug Resistant Organisms: MRSA Date of last positivie culture/infection: 2012 MDRO Source:: R toe Past Surgical History: Orthopedic Surgery Additional Past Surgical History / Comment(s): L 2nd toe bone removed/bx, L 4th toe amputation, bilateral surgery for achilles lengthening, R foot callus removed, bilateral feet and leg debridements, L knee arthroscopy, colonoscopy/benign polypectomy, PICC line present in L upper arm. Past Anesthesia/Blood Transfusion Reactions: No Reported Reaction Past Psychological History: No Psychological Hx Reported Additional Psychological History / Comment(s): Patient was a smoker and started at 8 years of age. He was up to 3 packs per day when he quit at age 28. He denies any medical marijuana, marijuana, street drug use. He drinks alcohol occasionally. He works as an accountant supervisor. He lives at home with his . There are no pets in the home. He has traveled out [place] with no illnesses with his Past Alcohol Use History: Occasional Additional Past Alcohol Use History / Comment(s): Patient was a smoker and started at 8 years of age. He was up to 3 packs per day when he quit at age 28. He drinks alcohol occasionally. Past Drug Use History: None Reported - Past Family History Mother History Unknown: Yes Family Medical History: Cancer Additional Family Medical History / Comment(s): breast and colon ca Father History Unknown: Yes Family Medical History: Cancer Additional Family Medical History / Comment(s): stomach General Exam Limitations: no limitations General appearance: alert Head exam: Present: normocephalic Eye exam: Present: normal appearance Neck exam: Present: normal inspection Respiratory exam: Present: normal lung sounds bilaterally Cardiovascular Exam: Present: tachycardia, irregular rhythm Expanded Peripheral pulses: 2+: Radial (R), Radial (L), Dorsalis Pedis (R), Dorsalis Pedis (L) GI/Abdominal exam: Present: soft. Absent: tenderness Extremities exam: Present: normal inspection. Absent: pedal edema, calf tenderness Neurological exam: Present: alert, oriented X3, CN II-XII intact. Absent: motor sensory deficit Expanded Neurological exam: Present: protecting the airway Speech: Present: fluid speech Cranial nerves: EOM's Intact: Normal, Facial Sensation: Normal Sensory exam: Upper Extremity Light Touch: Normal, Lower Extremity Light Touch: Normal Motor strength exam: RUE: 5, LUE: 5, RLE: 5, LLE: 5 Eye Response: (4) open spontaneously Motor Response: (6) obeys commands Verbal Response: (5) oriented Psychiatric exam: Present: normal affect, normal mood Skin exam: Present: normal color Course Vital Signs 12/14/20 14:27 Pulse Rate 84 Respiratory 18 Rate Blood Pressure 109/93 O2 Sat by Pulse 97 Oximetry - Reevaluation(s) Reevaluation #1: 12/14/20 14:36 Repeat EKG shows atrial flutter with a rate of 114. QRS 90. QT 364. QTC 51. Normal axis. Normal QRS. Nonspecific ST-T. 12/14/20 14:37 Cardiology has been paged review EKGs 12/14/20 14:40 Case was discussed with Dr. Galan and EKGs have been faxed to him. 12/14/20 14:45 Case was again discussed with Dr. Galan who agrees acute WA. EKG Findings - EKG Comments: EKG Findings:: Atrial flutter with a rate of 109. QRS 92. QT 356. QTc 479. Normal axis. Normal QRS. Nonspecific ST-T. Medical Decision Making - Medical Decision Making Patient reevaluated and resting comfortably in bed. Patient updated on results and plan. Patient is a flutter with rate of 109. Case discussed with Dr. Calvillo, who will admit his patient. - Lab Data Result diagrams: 12/14/20 14:51 12/14/20 14:51 Lab Results 12/14/20 12/14/20 12/14/20 Range/Units 14:51 14:51 14:51 WBC 7.1 (3.8-10.6) k/uL RBC 5.00 (4.30-5.90) m/uL Hgb 15.0 (13.0-17.5) gm/dL Hct 44.3 (39.0-53.0) % MCV 88.6 (80.0-100.0) fL MCH 29.9 (25.0-35.0) pg MCHC 33.8 (31.0-37.0) g/dL RDW 13.5 (11.5-15.5) % Plt Count 157 (150-450) k/uL MPV 7.6 Neutrophils % 65 % Lymphocytes % 25 % Monocytes % 6 % Eosinophils % 3 % Basophils % 0 % Neutrophils # 4.6 (1.3-7.7) k/uL Lymphocytes # 1.8 (1.0-4.8) k/uL Monocytes # 0.4 (0-1.0) k/uL Eosinophils # 0.2 (0-0.7) k/uL Basophils # 0.0 (0-0.2) k/uL PT 11.4 (9.0-12.0) sec INR 1.1 (<1.2) APTT 21.4 L (22.0-30.0) sec Sodium 141 (137-145) mmol/L Potassium 4.0 (3.5-5.1) mmol/L Chloride 106 (98-107) mmol/L Carbon Dioxide 25 (22-30) mmol/L Anion Gap 10 mmol/L BUN 20 (9-20) mg/dL Creatinine 1.29 H (0.66-1.25) mg/dL Est GFR (CKD-EPI)AfAm 66 (>60 ml/min/1.73 sqM) Est GFR (CKD-EPI)NonAf 57 (>60 ml/min/1.73 sqM) Glucose 133 H (74-99) mg/dL Calcium 9.8 (8.4-10.2) mg/dL Total Bilirubin 0.6 (0.2-1.3) mg/dL AST 31 (17-59) U/L ALT 21 (4-49) U/L Alkaline Phosphatase 72 (38-126) U/L Troponin I (0.000-0.034) ng/mL Total Protein 6.8 (6.3-8.2) g/dL Albumin 4.1 (3.5-5.0) g/dL 12/14/20 Range/Units 14:51 WBC (3.8-10.6) k/uL RBC (4.30-5.90) m/uL Hgb (13.0-17.5) gm/dL Hct (39.0-53.0) % MCV (80.0-100.0) fL MCH (25.0-35.0) pg MCHC (31.0-37.0) g/dL RDW (11.5-15.5) % Plt Count (150-450) k/uL MPV Neutrophils % % Lymphocytes % % Monocytes % % Eosinophils % % Basophils % % Neutrophils # (1.3-7.7) k/uL Lymphocytes # (1.0-4.8) k/uL Monocytes # (0-1.0) k/uL Eosinophils # (0-0.7) k/uL Basophils # (0-0.2) k/uL PT (9.0-12.0) sec INR (<1.2) APTT (22.0-30.0) sec Sodium (137-145) mmol/L Potassium (3.5-5.1) mmol/L Chloride (98-107) mmol/L Carbon Dioxide (22-30) mmol/L Anion Gap mmol/L BUN (9-20) mg/dL Creatinine (0.66-1.25) mg/dL Est GFR (CKD-EPI)AfAm (>60 ml/min/1.73 sqM) Est GFR (CKD-EPI)NonAf (>60 ml/min/1.73 sqM) Glucose (74-99) mg/dL Calcium (8.4-10.2) mg/dL Total Bilirubin (0.2-1.3) mg/dL AST (17-59) U/L ALT (4-49) U/L Alkaline Phosphatase (38-126) U/L Troponin I <0.012 (0.000-0.034) ng/mL Total Protein (6.3-8.2) g/dL Albumin (3.5-5.0) g/dL - Radiology Data Radiology results: image reviewed (Chest x-ray shows cardiomegaly) Disposition Clinical Impression: Syncope Disposition: ADMITTED IP TO THIS [facility] Is patient prescribed a controlled substance at d/c from ED?: No Referrals: Nick Calvillo MD [Primary Care Provider] - 1-2 days Decision Time: 15:53
[2020-12-14] MEDS ORDERED: SODIUM CHLORIDE 0.9% 1,000 ML IV STA (14:47)
[2020-12-14 14:57] LABS: Basophils % (A) 0 %; Eosinophils # (A) 0.2 k/uL (0-0.7); Eosinophils % (A) 3 %; HCT 44.3 % (39.0-53.0); Lymphocytes # (A) 1.8 k/uL (1.0-4.8); Lymphocytes % (A) 25 %; MCH 29.9 pg (25.0-35.0); MCHC 33.8 g/dL (31.0-37.0); MCV 88.6 fL (80.0-100.0); Mean Platelet Volume 7.6; Monocytes # (A) 0.4 k/uL (0-1.0); Monocytes % (A) 6 %; Neutrophils # (A) 4.6 k/uL (1.3-7.7); Neutrophils % (A) 65 %; Platelet Count 157 k/uL (150-450); RDW 13.5 % (11.5-15.5); WBC 7.1 k/uL (3.8-10.6)
[2020-12-14 15:05] LABS: Albumin 4.1 g/dL (3.5-5.0); Calcium 9.8 mg/dL (8.4-10.2); Total Bilirubin 0.6 mg/dL (0.2-1.3); Total Protein 6.8 g/dL (6.3-8.2)
[2020-12-14 15:12] LABS: INR 1.1 (<1.2); Prothrombin Time 11.4 sec (9.0-12.0)
[2020-12-14 15:19] LABS: Partial Thromboplastin Time 21.4 sec (22.0-30.0)
--- NOTE | 2020-12-14 15:31 | XR ---
EXAMINATION TYPE: XR chest 2V DATE OF EXAM: 12/14/2020 COMPARISON: NONE HISTORY: Syncope and weakness. TECHNIQUE: Frontal and lateral views of the chest are obtained. FINDINGS: Slightly suboptimal due to large body habitus. There is no focal air space opacity, pleural effusion, or pneumothorax seen. The cardiac silhouette size is mildly enlarged. Suspect old healed fracture deformity right clavicle. Overlying EKG leads. IMPRESSION: Cardiomegaly without acute pulmonary process.
[2020-12-14] MEDS ORDERED: NALOXONE 0.4 MG/ML 1 ML VIAL IV PRN (15:53)
[2020-12-14] MEDS ORDERED: INSULIN ASPART (NovoLOG) 100 UNIT/ML VIAL SQ SCH (17:30)
[2020-12-14 17:39] LABS: Glucose,Whole Blood 115 mg/dL (75-99)
--- NOTE | 2020-12-14 17:55 | P.HPIM ---
History of Present Illness H&P Date: 12/14/20 (Atrial flutter with RVR) Chief Complaint: After he took a shower at home he felt severe sweating cold and clammy felt Dictation of history and physical Date of service 12/14/[address] Calvillo. Chief complaint: Patient arrived by ambulance after his finding him in the bathroom in between the chair and the [place] with the profuse sweating uncomfortable denied any chest pain but he has palpitation no nausea and vomiting associated. His stated that he was bleached out from color and perfuse sweating, she called 911 ambulance brought him to the emergency room at [facility]. History of present illness Patient has been seen by Dr. Vela dry pan charger and he was planning for him in January to check his BP function of the heart with the underlying atrial fibrillation with controlled ventricular response with the interrogation. He started him on novel anticoagulant for 1 months prior to doing his procedure. On today event patient was out in the lawn and the backyard cutting grasses in the sun then subsequently he went to take shower he did not feel good and he felt like falling down with the underlying possibility of syncopal episode. And his called the ambulance with 911 protium to the hospital. In the hospital seen by Dr. Aguirre ER physician who did talk to Dr. Galan and the cardiology and at this time the thoughts is syncopal episode. And his dry pan charger is Dr. Vela. Order obtained for troponin however is not available. And found that his blood pressure was slightly in the low side of the spectrum but also he had a tibial fibrillation with RVR at the time of admission but no chest pain. Patient had echocardiogram by Dr. Vela and on 11/30/2020 at the strategic marketing associate which indicating that his ejection fraction 55% and left ventricular filling could not be assessed because of the atrial fibrillation. He had a mild left ventricular hypertrophy and normal ventricular size with normal function also found that he had trileaflet aortic valve and is classified as calcified mild tricuspid regurg, mild mitral regurg, moderate increased pulmonary artery systolic pressure 45 mmHg. Past medical history : #1 history of carpal tunnel syndrome upper limb #2 enlarged prostate without urinary symptoms. Sentient primary hypertension. Social tremors. Hyperlipidemia Obesity. 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 Hannon with a history of amputation of toes bilaterally with the osteoarthritis Sleep apnea Diabetes mellitus type 2 with diabetic neuropathy currently well controlled with diabetic retinopathy without macular edema patient ophthalmologically taking care of by Dr. Restrepo. Vitamin D deficiencies. Patient currently retired, former smoker and quit smoking in 1982 [place] and he had 1 daughter and 1 son. Family history father at age of 94 and of natural causes. He had one sister and he had diabetes in the maternal grandmother. Review of system: Neuropsychiatry normal in interrogation however he felt syncopal dizzy and perfuse sweating with a shower with the possible vasovagal attack with the rapid heart rate No chest pain cardiac-cruz No shortness of breath No GI symptoms No a genitourinary symptoms. Review of the rest of 14 bowlegged was not contributory. Patient has been treated by Dr. Hannon, S flatbed truck driver with antibiotic and he received almost a further course for left foot toe ulceration with a previous history of infection in the past and amputation. Physical exam: Current vital signs stable Head was normocephalic and atraumatic, pupil was equal reactive with history of implant with the cataract surgery bilateral., Normal hearing, Oropharynx natural teeth normal swallowing Neck was supple no JVD no thyromegaly no lymphadenopathy. Chest was clear to auscultation and percussion Heart: Irregular irregularities with the atrial fibrillation and rapid ventricular response. Chest x-ray no evidence of congestive heart failure Abdomen obese positive bowel sounds no organ enlargement. Extremities: He had positive pulses bilateral and he had mild superficial varicosities and he had bilateral amputated toes. History of surgery on the tendon of the feet. Neurologically no history of stroke or CVA no lateralizing sign he had fine tremor was essential tremor has been stable he used to see a neurologist and he quit his medication for that purpose and he did not see the neurologist anymore. Assessment: #1 atrial fibrillation with rapid ventricular response #2 has a vagal attack with the having sharp the hot shower #3 syncopal episode. #4 diabetes mellitus type 2. #5 history of hypertension currently on the lower scale of blood pressure. Plan: #[address] Vela #2 starting him on small dose of metoprolol 25 mg tell seen by the cardiology for the atrial fib was RVR with monitoring the blood pressure #3 IV fluid #4 adjustment of his insulin and medication for blood pressure as well as obtaining hemoglobin A1c and the CBG before meals a 3 times a day with the continuing with the Lantus long-acting however has been decreased to avoid hypoglycemia as his blood sugar readings lately has been controlled. #5 resume his medication at home. #6 rosuvastatin not available in [facility] and the switches to Lipitor, we increased his Lipitor to 40 mg to accommodate for the simvastatin 20 mg. On telemetry discharged home and he can resume his home medication Past Medical History Past Medical History: Diabetes Mellitus, Hyperlipidemia, Hypertension, Sleep Apnea/CPAP/BIPAP Additional Past Medical History / Comment(s): Pt recently admitted to [facility] on 10/11/18 with osteomyelitis and diabetic foot ulcers bilateral feet. Other Hx: IDDM type II, neuropathy bilateral feet, diabetic ulcers bilateral feet (current) and bilateral lower legs (healed), CARLYN with Cpap, essential tremors, carpal tunnel syndrome bilaterally. History of Any Multi-Drug Resistant Organisms: MRSA Date of last positivie culture/infection: 2012 MDRO Source:: R toe Past Surgical History: Orthopedic Surgery Additional Past Surgical History / Comment(s): L 2nd toe bone removed/bx, L 4th toe amputation, bilateral surgery for achilles lengthening, R foot callus removed, bilateral feet and leg debridements, L knee arthroscopy, colonoscopy/benign polypectomy, PICC line present in L upper arm. Past Anesthesia/Blood Transfusion Reactions: No Reported Reaction Smoking Status: Former smoker - Past Family History Mother History Unknown: Yes Family Medical History: Cancer Additional Family Medical History / Comment(s): breast and colon ca Father History Unknown: Yes Family Medical History: Cancer Additional Family Medical History / Comment(s): stomach Medications and Allergies Home Medications Medication Instructions Recorded Confirmed Type metFORMIN HCL [Metformin HCl] 850 mg PO BID 10/26/14 12/14/20 History Ascorbic Acid [Vitamin C] 1,000 mg PO DAILY 10/27/14 12/14/20 History Cholecalciferol [Vitamin D3 (25 5,000 unit PO DAILY 10/27/14 12/14/20 History Mcg = 1000 Iu)] Insulin Aspart [NovoLOG Flexpen] See Protocol SQ AC-TID 10/27/14 12/14/20 History Vitamin E (Dl,Tocopheryl Acet) 400 unit PO DAILY 10/27/14 12/14/20 History [Vitamin E (400 Iu = 180 mg)] Insulin Aspart [NovoLOG Flexpen] 15 units SQ AC-SUPPER 11/01/14 12/14/20 History Insulin Glargine,Hum.rec.anlog See Protocol SQ BID 12/14/16 12/14/20 History [Lantus Solostar] hydroCHLOROthiazide [Hydrodiuril] 12.5 mg PO DAILY 12/14/16 12/14/20 History lisinopriL [Zestril] 20 mg PO DAILY 12/14/16 12/14/20 History Insulin Aspart [NovoLOG Flexpen] 5 unit SQ AC-BID@0700,1200 10/20/18 12/14/20 History Aspirin [Adult Low Dose Aspirin EC] 81 mg PO DAILY 01/19/20 12/14/20 History Atorvastatin [Lipitor] 20 mg PO HS 12/14/20 12/14/20 History Cephalexin [Keflex] 500 mg PO TID 12/14/20 12/14/20 History Ketorolac 0.5% Ophth Soln [Acular] 1 drops LEFT EYE BID 12/14/20 12/14/20 History L.acidoph,Paracasei, B.lactis 1 cap PO DAILY 12/14/20 12/14/20 History [Probiotic] Pioglitazone HCl 15 mg PO DAILY 12/14/20 12/14/20 History Rivaroxaban [Xarelto] 20 mg PO W/SUPPER 12/14/20 12/14/20 History Allergies Allergy/AdvReac Type Severity Reaction Status Date / Time No Known Allergies Allergy Verified 12/14/20 14:55 Physical Exam Vitals: Vital Signs Temp Pulse Pulse Resp BP BP Pulse Ox 12/14/20 17:17 97.8 F 92 18 125/88 99 12/14/20 16:35 18 113/53 98 12/14/20 14:27 84 18 109/93 97 Intake and Output 12/14/20 12/14/20 12/14/20 06:59 14:59 22:59 Other: Weight 145.603 kg 145.603 kg Results CBC & Chem 7: 12/14/20 14:51 12/14/20 14:51 Labs: Abnormal Lab Results - Last 24 Hours (Table) 12/14/20 12/14/20 Range/Units 14:51 14:51 APTT 21.4 L (22.0-30.0) sec Creatinine 1.29 H (0.66-1.25) mg/dL Glucose 133 H (74-99) mg/dL Thrombosis Risk Factor Assmnt - Choose All That Apply Any of the Below Risk Factors Present?: No Each Risk Factor Represents 2 Points: Age 61-74 years Other congenital or acquired thrombophilia - If yes, enter type in comment: No Thrombosis Risk Factor Assessment Total Risk Factor Score: 2 Thrombosis Risk Factor Assessment Level: Low Risk
[2020-12-14] MEDS: SODIUM CHLORIDE 0.9% 1,000 ML IV SCH (18:14)
[2020-12-14] MEDS: INSULIN ASPART (NovoLOG) 100 UNIT/ML VIAL SQ SCH (18:15)
[2020-12-14] MEDS: ASCORBIC ACID 500 MG TAB PO SCH (18:15)
[2020-12-14] MEDS: CEPHALEXIN 500 MG CAP PO SCH ×2 (18:16→20:20)
[2020-12-14] MEDS: RIVAROXABAN 20 MG TAB PO SCH (18:16)
[2020-12-14 19:45] LABS: Appearance,Urine Clear (Clear); Bilirubin,Urine Negative (Negative); Blood,Urine Negative (Negative); Color,Urine Yellow; Glucose,Urine (UA) Negative (Negative); Hyaline Casts,Urine 5 /lpf (0-2); Ketones,Urine Negative (Negative); Leukocyte Esterase,Urine Negative (Negative); Mucus,Urine Rare /hpf; Nitrite,Urine Negative (Negative); PH, Urine 6.5 (5.0-8.0); Protein,Urine 1+ (Negative); RBC,Urine <1 /hpf (0-5); Specific Gravity,Urine 1.019 (1.001-1.035); Urobilinogen,Urine <2.0 mg/dL (<2.0); WBC,Urine 1 /hpf (0-5)
[2020-12-14 19:53] LABS: Glucose,Whole Blood 196 mg/dL (75-99)
[2020-12-14] MEDS: ATORVASTATIN 40 MG TAB PO SCH (20:17)
[2020-12-14] MEDS: KETOROLAC 0.5% OPHTH DROPS 5 ML BTL LEFT EYE SCH (20:17)
[2020-12-14] MEDS: METOPROLOL TARTRATE 25 MG TAB PO SCH (20:20)
[2020-12-14] MEDS: metFORMIN 850 MG TAB PO SCH (20:20)
[2020-12-14] MEDS ORDERED: ATORVASTATIN 20 MG TAB PO SCH (21:00)
[2020-12-14] MEDS ORDERED: INSULIN DETEMIR (LEVEMIR) 100 UNIT/ML SYR SQ SCH (21:00)
[2020-12-15 03:42] LABS: Hemoglobin A1C 7.6 % (4.0-6.0)
[2020-12-15] MEDS ORDERED: INSULIN DETEMIR (LEVEMIR) 100 UNIT/ML SYR SQ SCH (04:09)
[2020-12-15 05:12] LABS: Glucose,Whole Blood 100 mg/dL (75-99)
[2020-12-15] MEDS: SODIUM CHLORIDE 0.9% 1,000 ML IV SCH ×2 (06:10→18:16)
[2020-12-15] MEDS ORDERED: INSULIN ASPART (NovoLOG) 100 UNIT/ML VIAL SQ SCH (07:00)
[2020-12-15 07:59] LABS: Glucose,Whole Blood 132 mg/dL (75-99)
[2020-12-15] MEDS ORDERED: lisinopriL 20 MG TAB PO SCH (09:00)
[2020-12-15 09:16] LABS: Basophils # (A) 0.03 X 10*3/uL (0.00-0.10); Basophils % (A) 0.5 %; Eosinophils # (A) 0.21 X 10*3/uL (0.04-0.35); Eosinophils % (A) 3.6 %; HCT 42.8 % (39.6-50.0); HGB 14.3 g/dL (13.0-17.0); Lymphocytes # (A) 2.12 X 10*3/uL (0.90-5.00); Lymphocytes % (A) 36.4 %; MCH 29.7 pg (27.0-32.0); MCHC 33.4 g/dL (32.0-37.0); Mean Platelet Volume 10.7 fL (9.5-12.2); Monocytes # (A) 0.48 X 10*3/uL (0.20-1.00); Monocytes % (A) 8.2 %; Neutrophils # (A) 2.96 X 10*3/uL (1.80-7.70); Platelet Count 150 X 10*3/uL (140-440); RBC 4.81 X 10*6/uL (4.40-5.60); RDW 13.2 % (11.5-14.5); WBC 5.82 X 10*3/uL (4.50-10.00)
[2020-12-15 09:18] VITALS: RESP 18
[2020-12-15] MEDS: INSULIN ASPART (NovoLOG) 100 UNIT/ML VIAL SQ SCH ×3 (09:24→18:15)
[2020-12-15] MEDS: ASCORBIC ACID 500 MG TAB PO SCH (09:25)
[2020-12-15] MEDS: CHOLECALCIFEROL 25 MCG (1000 IU) TABLET PO SCH (09:25)
[2020-12-15] MEDS: METOPROLOL TARTRATE 25 MG TAB PO SCH ×2 (09:25→20:40)
[2020-12-15] MEDS: KETOROLAC 0.5% OPHTH DROPS 5 ML BTL LEFT EYE SCH ×2 (09:28→20:39)
[2020-12-15] MEDS: LACTOBACILLUS ACIDOPH & BULGAR 1 EACH PACKET PO SCH (09:29)
[2020-12-15] MEDS: VITAMIN E (DL,TOCOPHERYL ACET) 400 UNIT (180 MG) CAP PO SCH (09:29)
[2020-12-15] MEDS: metFORMIN 850 MG TAB PO SCH ×2 (09:29→20:40)
[2020-12-15] MEDS: PIOGLITAZONE 15 MG TAB PO SCH (09:29)
[2020-12-15] MEDS: hydroCHLOROthiazide 12.5 MG CAP PO SCH (09:29)
[2020-12-15] MEDS: CEPHALEXIN 500 MG CAP PO SCH ×3 (09:29→20:40)
[2020-12-15] MEDS: lisinopriL 10 MG TAB PO SCH (09:31)
[2020-12-15 10:12] LABS: African American GFR (CKD) 89.9 (60.0-200.0); Albumin/Globulin Ratio 1.6 (1.60-3.17); Anion Gap 7.9 mmol/L (4.00-12.00); Calcium 9.2 mg/dL (8.7-10.3); Carbon Dioxide 26.1 mmol/L (21.6-31.8); Globulin 2.5 g/dL (1.6-3.3); Non-African American GFR(CKD) 77.5 (60.0-200.0); Potassium 3.9 mmol/L (3.5-5.5); Total Bilirubin 0.8 mg/dL (0.3-1.2); Total Protein 6.5 g/dL (6.2-8.2)
[2020-12-15] MEDS: INSULIN DETEMIR (LEVEMIR) 100 UNIT/ML SYR SQ SCH ×2 (10:14→20:39)
[2020-12-15 12:03] LABS: Glucose,Whole Blood 195 mg/dL (75-99)
--- NOTE | 2020-12-15 13:53 | P.PN ---
Subjective Progress Note Date: 12/15/20 (Atrial flutter 4-1) Principal diagnosis: #1 cardiac arrhythmia with atrial fibrillation/atrial flutter on admission with RVR. #2 vasovagal attack with a syncopal episode. #3 today EKG normal rate 68/m however atrial flutter with 4:1 AV conduction. 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 #5 postural hypotension with the possibility secondary to neuropathy and mild dehydration. #6 currently controlled diabetes mellitus, and hypertension. With normal oxygen saturation 96% on room air. Progress note date of service 12/15/2020. Discussed with the patient. EKG done today with a controlled heart rate with the presence of atrial flutter with 4:1 AV conduction, No chest pain with a normal troponin. History of syncopal episode in the bathroom with warm to hot shower after he was on the backyard in the heat with the mowing the grass. And possibility of question of vasovagal attack. Orthostatic blood pressure possibility of mild dehydration, with the neuropathy of diabetes mellitus with a history of diabetes mellitus for the last 30 years. On exam: His blood pressure right arm in the sitting position 125/76 mean 92. Blood pressure right arm standing 124/73 mean 90 Blood pressure right arm supine 142/73 mean 96. Oxygen saturation 96% room air and heart rate 68 bpm sitting position, heart rate standing position 62/m, heart rate on supine position 69/m with no significant change in the heart rate. Respiratory rate 1618/m nonlabored. Temperature 97.7 F or. Head was normocephalic and atraumatic, pupils equal reactive, oropharynx normal and hearing is normal. Neck was supple no JVD and he had on the right medial to the midline nodule which has been present before and further follow-up with the ENT will be arranged as outpatient as discussed with the patient. Chest was clear to auscultation and percussion no wheezes no rhonchi's. The heart PMI in the fifth intercostal space outside midclavicular line normal S1 and S2 with the atrial flutter and normal ventricular response. Abdomen obese positive bowel sound no tenderness in the 4 quadrant no suprapubic tenderness. Extremities: No edema and he had amputated toes due to previous infection also treated by Dr. Brian paerson painting and coating worker for the sore on the toe in the left foot. Neurologically patient is conscious alert oriented, no farther syncopal episode, no lateralizing sign, ambulatory. Assessment: #1 admitted with atrial fib/flutter with a rapid ventricular response, currently controlled ventricular response 68 bpm with the atrial flutter with 4:1 AV condu ction #2 normal troponin no chest pain. #3 diabetes mellitus type 2 insulin-dependent currently well-controlled we'll continue the current changes. #4 patient currently placed on metoprolol tartrate 25 mg twice a day and he is monitored. #5 hypertension is controlled. Plan: #1 patient seen today by Dr. Cox pipeline welder, we waiting for him for his farther treatment, decision for discharge, or home monitor, also decision to continue with the metoprolol tartrate twice a day or to stop. Currently Dr. Gama not available for comment or treatment for the atrial flutter. #2 we'll continue the current therapy for diabetes mellitus. #3 continue monitor patient understand discussed with the patient and his . Objective - Vital Signs Vital signs: Vital Signs Temp 97.7 F 12/15/20 07:58 Pulse 69 12/15/20 09:16 Resp 18 12/15/20 09:16 BP 142/73 12/15/20 09:16 Pulse Ox 96 12/15/20 09:16 Intake & Output 12/14/20 12/15/20 12/15/20 18:59 06:59 18:59 Intake Total 800 Balance 800 Weight 145.603 kg Intake: IV 600 Sodium Chloride 0.9% 1, 600 000 ml @ 75 mls/hr IV . [id number] [facility] Rx#:[id number] Oral 200 Other: Voiding Method Toilet Toilet # Voids 2 2 - Labs CBC & Chem 7: 12/15/20 06:08 12/15/20 06:08 Labs: Abnormal Lab Results - Last 24 Hours (Table) 12/14/20 12/14/20 12/14/20 Range/Units 14:51 14:51 14:51 APTT 21.4 L (22.0-30.0) sec Creatinine 1.29 H (0.66-1.25) mg/dL BUN/Creatinine Ratio (12.00-20.00) Ratio Glucose 133 H (74-99) mg/dL POC Glucose (mg/dL) (75-99) mg/dL Hemoglobin A1c 7.6 H (4.0-6.0) % Urine Protein (Negative) Hyaline Casts (0-2) /lpf Urine Mucus (None) /hpf 12/14/20 12/14/20 12/14/20 Range/Units 17:37 19:39 19:51 APTT (22.0-30.0) sec Creatinine (0.66-1.25) mg/dL BUN/Creatinine Ratio (12.00-20.00) Ratio Glucose (74-99) mg/dL POC Glucose (mg/dL) 115 H 196 H (75-99) mg/dL Hemoglobin A1c (4.0-6.0) % Urine Protein 1+ H (Negative) Hyaline Casts 5 H (0-2) /lpf Urine Mucus Rare H (None) /hpf 12/15/20 12/15/20 12/15/20 Range/Units 05:11 06:08 07:58 APTT (22.0-30.0) sec Creatinine (0.66-1.25) mg/dL BUN/Creatinine Ratio 21.00 H (12.00-20.00) Ratio Glucose 113 H (74-99) mg/dL POC Glucose (mg/dL) 100 H 132 H (75-99) mg/dL Hemoglobin A1c (4.0-6.0) % Urine Protein (Negative) Hyaline Casts (0-2) /lpf Urine Mucus (None) /hpf 12/15/20 Range/Units 12:02 APTT (22.0-30.0) sec Creatinine (0.66-1.25) mg/dL BUN/Creatinine Ratio (12.00-20.00) Ratio Glucose (74-99) mg/dL POC Glucose (mg/dL) 195 H (75-99) mg/dL Hemoglobin A1c (4.0-6.0) % Urine Protein (Negative) Hyaline Casts (0-2) /lpf Urine Mucus (None) /hpf
--- NOTE | 2020-12-15 15:16 | P.CRDCN ---
History of Present Illness Consult date: 12/15/20 History of present illness: This 65-year-old gentleman with history of hypertension and diabetes and also history of atrial flutter. Patient was seen by Dr. Vela recently and is scheduled to have ablation done in January. Patient is also on anticoagulation therapy. Apparently he was working in his had yesterday and had episodes of dizziness but no syncopal episodes. Subsequently, patient went to the house and took a shower and felt very sweaty and dizzy. Apparently went to the bathroom near the toilet and it appears that patient might have fell off the toilet. His saw him profusely sweating and pale and subsequently brought to the emergency room by the paramedics. Patient denied any chest pain apparently his blood sugar was okay and patient was not hypoglycemic. We don't know the details of blood pressure or pulse. Since admission patient has been relatively stable. His vital signs have been stable. There is a drop in blood pressure is sized to mild postural hypotension. His heart rate has been in the 50s and 60s. We'll going to hold the metoprolol. If heart rate is below 60. Continue to monitor for any postural changes. Patient is being monitored for any significant bradyarrhythmias. Patient's recent echocardiogram showed normal LV function. Patient denied any chest pain. His cardiac enzymes 3 are negative. Patient's dose of lisinopril as been cut back. He patient is stable for the next 24 hours, patient could be discharged home with event monitor. Follow-up with Dr. Vela Past Medical History Past Medical History: Diabetes Mellitus, Hyperlipidemia, Hypertension, Sleep Apnea/CPAP/BIPAP Additional Past Medical History / Comment(s): Pt recently admitted to [facility] on 10/11/18 with osteomyelitis and diabetic foot ulcers bilateral feet. Other Hx: IDDM type II, neuropathy bilateral feet, diabetic ulcers bilateral feet (current) and bilateral lower legs (healed), CARLYN with Cpap, essential tremors, carpal tunnel syndrome bilaterally. History of Any Multi-Drug Resistant Organisms: MRSA Date of last positivie culture/infection: 2012 MDRO Source:: R toe Past Surgical History: Orthopedic Surgery Additional Past Surgical History / Comment(s): L 2nd toe bone removed/bx, L 4th toe amputation, bilateral surgery for achilles lengthening, R foot callus removed, bilateral feet and leg debridements, L knee arthroscopy, colono scopy/benign polypectomy, PICC line present in L upper arm. Past Anesthesia/Blood Transfusion Reactions: No Reported Reaction Smoking Status: Former smoker - Past Family History Mother History Unknown: Yes Family Medical History: Cancer Additional Family Medical History / Comment(s): breast and colon ca Father History Unknown: Yes Family Medical History: Cancer Additional Family Medical History / Comment(s): stomach Medications and Allergies Home Medications Medication Instructions Recorded Confirmed Type metFORMIN HCL [Metformin HCl] 850 mg PO BID 10/26/14 12/14/20 History Ascorbic Acid [Vitamin C] 1,000 mg PO DAILY 10/27/14 12/14/20 History Cholecalciferol [Vitamin D3 (25 5,000 unit PO DAILY 10/27/14 12/14/20 History Mcg = 1000 Iu)] Insulin Aspart [NovoLOG Flexpen] See Protocol SQ AC-TID 10/27/14 12/14/20 History Vitamin E (Dl,Tocopheryl Acet) 400 unit PO DAILY 10/27/14 12/14/20 History [Vitamin E (400 Iu = 180 mg)] Insulin Aspart [NovoLOG Flexpen] 15 units SQ AC-SUPPER 11/01/14 12/14/20 History Insulin Glargine,Hum.rec.anlog See Protocol SQ BID 12/14/16 12/14/20 History [Lantus Solostar] hydroCHLOROthiazide [Hydrodiuril] 12.5 mg PO DAILY 12/14/16 12/14/20 History lisinopriL [Zestril] 20 mg PO DAILY 12/14/16 12/14/20 History Insulin Aspart [NovoLOG Flexpen] 5 unit SQ AC-BID@0700,1200 10/20/18 12/14/20 History Aspirin [Adult Low Dose Aspirin EC] 81 mg PO DAILY 01/19/20 12/14/20 History Atorvastatin [Lipitor] 20 mg PO HS 12/14/20 12/14/20 History Cephalexin [Keflex] 500 mg PO TID 12/14/20 12/14/20 History Ketorolac 0.5% Ophth Soln [Acular] 1 drops LEFT EYE BID 12/14/20 12/14/20 History L.acidoph,Paracasei, B.lactis 1 cap PO DAILY 12/14/20 12/14/20 History [Probiotic] Pioglitazone HCl 15 mg PO DAILY 12/14/20 12/14/20 History Rivaroxaban [Xarelto] 20 mg PO W/SUPPER 12/14/20 12/14/20 History Allergies Allergy/AdvReac Type Severity Reaction Status Date / Time No Known Allergies Allergy Verified 12/14/20 14:55 Physical Exam Vitals: Vital Signs Temp Pulse Pulse Pulse Pulse Resp BP 12/15/20 14:46 97.5 F L 70 18 12/15/20 09:16 68 62 69 18 12/15/20 08:00 18 12/15/20 07:58 97.7 F 71 16 12/15/20 02:45 71 17 12/15/20 01:49 97.8 F 71 17 12/14/20 20:23 92 17 12/14/20 18:50 97.8 F 92 17 12/14/20 17:17 97.8 F 92 18 12/14/20 16:35 18 113/53 BP BP BP BP Pulse Ox 12/15/20 14:46 142/82 96 12/15/20 09:16 125/76 124/73 142/73 96 12/15/20 08:00 12/15/20 07:58 121/74 96 12/15/20 02:45 12/15/20 01:49 102/64 97 12/14/20 20:23 12/14/20 18:50 127/82 96 12/14/20 17:17 125/88 99 12/14/20 16:35 98 Intake and Output 12/15/20 12/15/20 12/15/20 06:59 14:59 22:59 Intake Total 1050 Balance 1050 Intake: IV 600 Sodium Chloride 0.9% 1, 600 000 ml @ 75 mls/hr IV . [id number] [facility] Rx#:[id number] Oral 450 Other: Voiding Method Toilet Toilet # Voids 2 2 GENERAL EXAM: Patient is alert and oriented and doesn't appear to be in any acute distress HEENT: Normocephalic. Normal reaction of pupils, equal size, normal range of extraocular motion. No erythema or exudates in the throat. NECK: No masses, no nuchal rigidity. CHEST: No chest wall deformity. LUNGS: Equal air entry with no crackles or wheeze. HEART: S1 and S2 normal with no audible mumurs or gallops. Regular rhythm, femorals equal on both sides.. ABDOMEN: No hepatosplenomegaly, normal bowel sounds, no guarding or rigidity. SKIN: No rashes CENTRAL NERVOUS SYSTEM: No focal deficits. EXTREMITIES: No cyanosis, clubbing or edema. Results 12/15/20 06:08 12/15/20 06:08 Cardiac Enzymes 12/14/20 12/14/20 12/14/20 Range/Units 14:51 18:06 21:23 AST (14-35) U/L Troponin I <0.012 <0.012 <0.012 (0.000-0.034) ng/mL 12/15/20 Range/Units 06:08 AST 27 (14-35) U/L Troponin I (0.000-0.034) ng/mL Coagulation 12/14/20 Range/Units 14:51 PT 11.4 (9.0-12.0) sec APTT 21.4 L (22.0-30.0) sec CBC 12/15/20 Range/Units 06:08 WBC 5.82 (4.50-10.00) X 10*3/uL RBC 4.81 (4.40-5.60) X 10*6/uL Hgb 14.3 (13.0-17.0) g/dL Hct 42.8 (39.6-50.0) % Plt Count 150 (140-440) X 10*3/uL Comprehensive Metabolic Panel 12/15/20 Range/Units 06:08 Sodium 140 (135-145) mmol/L Potassium 3.9 (3.5-5.5) mmol/L Chloride 106 (96-109) mmol/L Carbon Dioxide 26.1 (21.6-31.8) mmol/L BUN 21.0 (9.0-27.0) mg/dL Creatinine 1.0 (0.6-1.5) mg/dL Glucose 113 H (70-110) mg/dL Calcium 9.2 (8.7-10.3) mg/dL AST 27 (14-35) U/L ALT 22 (10-49) U/L Alkaline Phosphatase 67 (41-126) U/L Total Protein 6.5 (6.2-8.2) g/dL Albumin 4.00 (3.80-4.90) g/dL Current Medications Generic Name Dose Route Start Last Admin Trade Name Mague PRN Reason Stop Dose Admin Ascorbic Acid 1,000 mg 12/14/20 17:00 12/15/20 09:25 Ascorbic Acid 500 Mg Tab PO 1,000 mg DAILY [facility] Administration Atorvastatin Calcium 40 mg 12/14/20 21:00 12/14/20 20:17 Atorvastatin 40 Mg Tab PO 40 mg HS NAWAF Administration Cephalexin 500 mg 12/14/20 17:00 12/15/20 09:29 Cephalexin 500 Mg Cap PO 500 mg TID NAWAF Administration Cholecalciferol 125 mcg 12/15/20 09:00 12/15/20 09:25 Cholecalciferol 25 Mcg (1000 Iu) Tablet PO 125 mcg DAILY NAWAF Administration Hydrochlorothiazide 12.5 mg 12/15/20 09:00 12/15/20 09:29 Hydrochlorothiazide 12.5 Mg Cap PO 12.5 mg DAILY NAWAF Administration Sodium Chloride 1,000 mls @ 75 mls/hr 12/14/20 16:00 12/15/20 06:10 Saline 0.9% IV Not Given .[id number] [facility] Insulin Aspart 7 unit 12/14/20 17:30 12/15/20 12:40 Insulin Aspart (Novolog) 100 Unit/Ml Vial 0.05 unit/kg (7 unit) 7 unit SQ Administration AC-TID [facility] Insulin Detemir 10 unit 12/15/20 10:00 12/15/20 10:14 Insulin Detemir (Levemir) 100 Unit/Ml Syr SQ 10 unit AC-BID [facility] Administration Ketorolac Tromethamine 1 drops 12/14/20 21:00 12/15/20 09:28 Ketorolac 0.5% Ophth Drops 5 Ml Btl LEFT EYE 1 drops BID NAWAF Administration Lactobacillus Acidoph/Bulgaricus 1 each 12/15/20 09:00 12/15/20 09:29 Lactobacillus Acidoph & Bulgar 1 Each Packet PO 1 each DAILY NAWAF Administration Lisinopril 10 mg 12/15/20 09:00 12/15/20 09:31 Lisinopril 10 Mg Tab PO 10 mg DAILY NAWAF Administration Metformin HCl 850 mg 12/14/20 21:00 12/15/20 09:29 Metformin 850 Mg Tab PO 850 mg BID NAWAF Administration Metoprolol Tartrate 25 mg 12/14/20 21:00 12/15/20 09:25 Metoprolol Tartrate 25 Mg Tab PO 25 mg BID NAWAF Administration Naloxone HCl 0.2 mg 12/14/20 15:53 Naloxone 0.4 Mg/Ml 1 Ml Vial IV Q2M PRN Opioid Reversal Pioglitazone HCl 15 mg 12/15/20 09:00 12/15/20 09:29 Pioglitazone 15 Mg Tab PO 15 mg DAILY NAWAF Administration Rivaroxaban 20 mg 12/14/20 17:30 12/14/20 18:16 Rivaroxaban 20 Mg Tab PO 20 mg W/SUPPER NAWAF Administration Protocol Vitamin E 400 unit 12/15/20 09:00 12/15/20 09:29 Vitamin E (Dl,Tocopheryl Acet) 400 Unit (180 Mg) Cap PO 400 unit DAILY NAWAF Administration Intake and Output 12/15/20 12/15/20 12/15/20 06:59 14:59 22:59 Intake Total 1050 Balance 1050 Intake: IV 600 Sodium Chloride 0.9% 1, 600 000 ml @ 75 mls/hr IV . [id number] [facility] Rx#:[id number] Oral 450 Other: Voiding Method Toilet Toilet # Voids 2 2 12/15/20 06:08 12/15/20 06:08 EKG Interpretations (text) Atrial flutter with controlled ventricular response Assessment and Plan (1) Typical atrial flutter Current Visit: Yes Status: Acute Code(s): I48.3 - TYPICAL ATRIAL FLUTTER SNOMED Code(s): 269744043 (2) Syncope Current Visit: Yes Status: Acute Code(s): R55 - SYNCOPE AND COLLAPSE SNOMED Code(s): 312438151 (3) Orthostatic hypotension Current Visit: Yes Status: Acute Code(s): I95.1 - ORTHOSTATIC HYPOTENSION SNOMED Code(s): 39061731 (4) Diabetes mellitus Current Visit: Yes Status: Acute Code(s): E11.9 - TYPE 2 DIABETES MELLITUS WITHOUT COMPLICATIONS SNOMED Code(s): 56635928 Plan: Continue to monitor for any significant tachycardia or bradyarrhythmias continue checking for postural hypotension. Agree having back the dose of the lisinopril. Hold beta diego if heart rate is slow. Further recommendations depend upon clinical course
[2020-12-15 17:26] LABS: Glucose,Whole Blood 100 mg/dL (75-99)
[2020-12-15] MEDS: RIVAROXABAN 20 MG TAB PO SCH (18:14)
[2020-12-15 20:02] LABS: Glucose,Whole Blood 183 mg/dL (75-99)
[2020-12-15] MEDS: ATORVASTATIN 40 MG TAB PO SCH (20:39)
[2020-12-16 06:55] LABS: Glucose,Whole Blood 102 mg/dL (75-99)
[2020-12-16 07:24] VITALS: BP 138/92; PULSE 71; TEMP 97.9
[2020-12-16] MEDS: INSULIN ASPART (NovoLOG) 100 UNIT/ML VIAL SQ SCH ×2 (07:34→12:39)
[2020-12-16] MEDS: INSULIN DETEMIR (LEVEMIR) 100 UNIT/ML SYR SQ SCH (07:34)
[2020-12-16] MEDS: CHOLECALCIFEROL 25 MCG (1000 IU) TABLET PO SCH (07:36)
[2020-12-16] MEDS: hydroCHLOROthiazide 12.5 MG CAP PO SCH (07:36)
[2020-12-16] MEDS: METOPROLOL TARTRATE 25 MG TAB PO SCH (07:36)
[2020-12-16] MEDS: PIOGLITAZONE 15 MG TAB PO SCH (07:36)
[2020-12-16] MEDS: CEPHALEXIN 500 MG CAP PO SCH (07:36)
[2020-12-16] MEDS: ASCORBIC ACID 500 MG TAB PO SCH (07:36)
[2020-12-16] MEDS: VITAMIN E (DL,TOCOPHERYL ACET) 400 UNIT (180 MG) CAP PO SCH (07:37)
[2020-12-16] MEDS: lisinopriL 10 MG TAB PO SCH (07:37)
[2020-12-16] MEDS: KETOROLAC 0.5% OPHTH DROPS 5 ML BTL LEFT EYE SCH (07:37)
[2020-12-16] MEDS: LACTOBACILLUS ACIDOPH & BULGAR 1 EACH PACKET PO SCH (07:37)
[2020-12-16] MEDS: metFORMIN 850 MG TAB PO SCH (07:37)
[2020-12-16 12:06] LABS: Glucose,Whole Blood 137 mg/dL (75-99)
--- NOTE | 2020-12-16 12:06 | P.DS ---
Providers Date of admission: 12/14/20 15:53 Expected date of discharge: 12/16/20 Attending physician: Nick Calvillo Consults: 12/14/20 15:53 Consult Physician Urgent Consulting Provider: Dayday Vela Consult Reason/Comments: syncope Do you want consulting provider notified?: Yes Primary care physician: Nick Calvillo Discharge summary Date of service 12/16/2020 Final diagnosis #1 syncopal episode #2 cardiac arrhythmia with atrial fibrillation with rapid ventricular response #3 atrial flutter with 4:1 AV conduction #4 no angina, no troponin elevation, no congestive heart failure. #5 diabetes mellitus type 2 complicated with peripheral neuropathy. #6 orthostatic hypotension associated multifactorial, diabetic neuropathy, cardiac arrhythmia, mildly dehydration. With the working outside the house and the heated sun exposure. #7 hypertension with hypertensive heart disease controlled. Consulting physician: Cardiology Dr. Cox ER presentation: Pulled by EMS with a syncopal episode from home. Hospital course: Patient admitted on observation with monitoring and consultation with cardiology. Because of the atrial fib with RVR patient was started on small doses of beta blockers and his heart rate improved to 60 and 70 with no complaining of chest pain. Patient has already appointment with Dr. Vela in January to have ablation with the underlying cardiac arrhythmia. Repeat EKG found to have atrial flutter with 4:1 AV conduction with a stable blood pressure and stable heart rate. Patient followed by cardiology team. His insulin has been adjusted due to evidence of hypoglycemia. His blood pressure medication also adjusted because of the blood pressure on the lower and and lisinopril has been decreased to 10 mg. Patient has diabetes mellitus type 2 insulin-dependent and his insulin at home his Lantus has been adjusted to 10 mg twice a day. Also the NovoLog short acting insulin has been adjusted to 7 units before each meal plus a scale if needed. Exam on discharge: Vital sign temperature 97.9 F oral, heart rate 71 bpm with atrial flutter, respiratory rate 18 normal nonlabored, blood pressure 138/92 with a mean of 107 pulse ox 96% on room air. Patient ambulatory conscious alert he had his chart this morning with no symptoms and no syncope. Conscious alert oriented 3. Head was normocephalic and atraumatic, pupils equal reactive, oropharynx natural teeth, Neck was supple no JVD no thyromegaly no lymphadenopathy. Chest is clear to auscultation and percussion Heart he has atrial flutter compensated monitored by cardiology Abdomen obese positive bowel sounds Endocrine: His blood sugar this morning 102 and lost night ranging between 100- 195 which is controlled on covered with insulin plus medication. Extremities he had amputated toes with previous surgery on his feet. Has been treated by Dr. Brian Hannon and Dr. Arnaldo Raymundo the vascular surgeon. Neurologically stable ambulatory, no tremors, no weakness, no lateralizing sign. Assessment: Stable general condition for discharge however because of his atrial flutter, he will be seen by cardiology before discharge to clear him as well as patient will be seen in the cardiology office next week. Diabetes mellitus controlled Cardiac arrhythmia stable No for further syncopal episodes. Plan discharge home today follow-up next week with Dr. Dominguez PCP and follow-up with the cardiology Dr. Vela for for further cardiac arrhythmia interrogation and treatment. Prescription given for metoprolol tartrate 25 mg twice a day, also lisinopril decreased to 10 mg once a day. Discussed the insulin long-acting and short-acting with the patient for adjustment and he has been noneligible for 30 years with the diabetes mellitus. Plan - Discharge Summary Discharge Rx Participant: No New Discharge Prescriptions: New Pioglitazone [Actos] 15 mg PO DAILY tab Metoprolol Tartrate [Lopressor] 25 mg PO BID #60 tab INSULIN ASPART (NovoLOG) [NovoLOG (formulary)] 7 unit SQ AC-TID vial lisinopriL [Zestril] 10 mg PO DAILY #90 tab Atorvastatin [Lipitor] 40 mg PO HS tab Continue metFORMIN HCL [Metformin HCl] 850 mg PO BID Vitamin E (Dl,Tocopheryl Acet) [Vitamin E (400 Iu = 180 mg)] 400 unit PO DAILY Cholecalciferol [Vitamin D3 (25 Mcg = 1000 Iu)] 5,000 unit PO DAILY Ascorbic Acid [Vitamin C] 1,000 mg PO DAILY Insulin Aspart [NovoLOG Flexpen] See Protocol SQ AC-TID hydroCHLOROthiazide [Hydrodiuril] 12.5 mg PO DAILY Insulin Glargine,Hum.rec.anlog [Lantus Solostar] See Protocol SQ BID Aspirin [Adult Low Dose Aspirin EC] 81 mg PO DAILY Rivaroxaban [Xarelto] 20 mg PO W/SUPPER Ketorolac 0.5% Ophth Soln [Acular 0.5%] 1 drops LEFT EYE BID Cephalexin [Keflex] 500 mg PO TID L.acidoph,Paracasei, B.lactis [Probiotic] 1 cap PO DAILY Discontinued Insulin Aspart [NovoLOG Flexpen] 15 units SQ AC-SUPPER lisinopriL [Zestril] 20 mg PO DAILY Insulin Aspart [NovoLOG Flexpen] 5 unit SQ AC-BID@0700,1200 Pioglitazone HCl 15 mg PO DAILY Atorvastatin [Lipitor] 20 mg PO HS Discharge Medication List metFORMIN HCL [Metformin HCl] 850 mg PO BID 10/26/14 [History] Ascorbic Acid [Vitamin C] 1,000 mg PO DAILY 10/27/14 [History] Cholecalciferol [Vitamin D3 (25 Mcg = 1000 Iu)] 5,000 unit PO DAILY 10/27/14 [History] Insulin Aspart [NovoLOG Flexpen] See Protocol SQ AC-TID 10/27/14 [History] Vitamin E (Dl,Tocopheryl Acet) [Vitamin E (400 Iu = 180 mg)] 400 unit PO DAILY 10/27/14 [History] Insulin Glargine,Hum.rec.anlog [Lantus Solostar] See Protocol SQ BID 12/14/16 [History] hydroCHLOROthiazide [Hydrodiuril] 12.5 mg PO DAILY 12/14/16 [History] Aspirin [Adult Low Dose Aspirin EC] 81 mg PO DAILY 01/19/20 [History] Cephalexin [Keflex] 500 mg PO TID 12/14/20 [History] Ketorolac 0.5% Ophth Soln [Acular 0.5%] 1 drops LEFT EYE BID 12/14/20 [History] L.acidoph,Paracasei, B.lactis [Probiotic] 1 cap PO DAILY 12/14/20 [History] Rivaroxaban [Xarelto] 20 mg PO W/SUPPER 12/14/20 [History] Atorvastatin [Lipitor] 40 mg PO HS tab 12/16/20 [Rx] INSULIN ASPART (NovoLOG) [NovoLOG (formulary)] 7 unit SQ AC-TID vial 12/16/20 [Rx] Metoprolol Tartrate [Lopressor] 25 mg PO BID #60 tab 12/16/20 [Rx] Pioglitazone [Actos] 15 mg PO DAILY tab 12/16/20 [Rx] lisinopriL [Zestril] 10 mg PO DAILY #90 tab 12/16/20 [Rx] Follow up Appointment(s)/Referral(s): Dayday Vela MD [STAFF PHYSICIAN] - 1 Week (Please call the office to make appointment) Nick Calvillo MD [Primary Care Provider] - 1 Week (Please call the office to make appointment) Patient Instructions/Handouts: Syncope (DC) Activity/Diet/Wound Care/Special Instructions: Call Cardiology office on Thursday am for Event monitor per Dr Galan
--- NOTE | 2020-12-16 12:37 | P.PN ---
Subjective Progress Note Date: 12/16/20 HISTORY OF PRESENT ILLNESS: Patient examined this morning at the bedside. Patient denies any chest pain or pressure. He denies shortness of breath. Patient denies any further episodes of dizziness or lightheadedness. No episodes of syncope. Patient's blood pressure has been stable. He has been ambulating in his room without any difficulty. He is anxious to be discharged home today. PHYSICAL EXAM: VITAL SIGNS: Reviewed. GENERAL: Well-developed in no acute distress. NECK: Supple. No JVD or thyromegaly LUNGS: Respirations even and unlabored. Lungs essentially clear to auscultation bilaterally. HEART: Irregular rate and rhythm. S1 and S2 heard. EXTREMITIES: Normal range of motion. No clubbing or cyanosis. Peripheral pulses intact. No lower extremity edema ASSESSMENT: Syncope Typical atrial flutter with RVR, currently controlled Diabetes mellitus History of hypertension PLAN: Patient may be discharged home today from a cardiac standpoint He is to call the office tomorrow to make an appointment to cook pickled meat an event monitor Follow up outpatient with Dr. Vela Nurse practitioner note has been reviewed by physician. Signing provider agrees with the documented findings, assessment, and plan of care. Objective - Vital Signs Vital signs: Vital Signs Temp 97.9 F 12/16/20 07:00 Pulse 71 12/16/20 07:00 Resp 18 12/16/20 08:00 BP 138/92 12/16/20 07:00 Pulse Ox 96 12/16/20 07:00 Intake & Output 12/15/20 12/16/20 12/16/20 18:59 06:59 18:59 Intake Total 1050 200 Balance 1050 200 Intake: IV 600 Sodium Chloride 0.9% 1, 600 000 ml @ 75 mls/hr IV . [id number] Rx#:[id number] Oral 450 200 Other: Voiding Method Toilet Toilet Toilet # Voids 2 2 - Labs CBC & Chem 7: 12/15/20 06:08 12/15/20 06:08 Labs: Abnormal Lab Results - Last 24 Hours (Table) 12/15/20 12/15/20 12/15/20 Range/Units 12:02 17:25 20:01 POC Glucose (mg/dL) 195 H 100 H 183 H (75-99) mg/dL 12/16/20 Range/Units 06:54 POC Glucose (mg/dL) 102 H (75-99) mg/dL
== END 2020-12-16 13:46 | disposition home or self-care (01) ==
LOC: EC 14:26 → 6NMEDSUR 15:53
PROVIDERS: ADMIT Internal Medicine; ATTEND Internal Medicine
DX: R55 Syncope and collapse (principal); I48.3 Typical atrial flutter; I48.91 Unspecified atrial fibrillation; E11.42 Type 2 diabetes mellitus with diabetic polyneuropathy; I95.1 Orthostatic hypotension; E86.0 Dehydration; R25.1 Tremor, unspecified; I11.9 Hypertensive heart disease without heart failure; E11.319 Type 2 diabetes mellitus with unspecified diabetic retinopathy without macular edema; E11.649 Type 2 diabetes mellitus with hypoglycemia without coma; E78.5 Hyperlipidemia, unspecified; E11.621 Type 2 diabetes mellitus with foot ulcer; E11.622 Type 2 diabetes mellitus with other skin ulcer; E55.9 Vitamin D deficiency, unspecified; E66.9 Obesity, unspecified; Z68.41 Body mass index [BMI] 40.0-44.9, adult; G47.33 Obstructive sleep apnea (adult) (pediatric); G56.03 Carpal tunnel syndrome, bilateral upper limbs; L84 Corns and callosities; L97.919 Non-pressure chronic ulcer of unspecified part of right lower leg with unspecified severity; M19.90 Unspecified osteoarthritis, unspecified site; M86.9 Osteomyelitis, unspecified; Z86.14 Personal history of Methicillin resistant Staphylococcus aureus infection; I08.1 Rheumatic disorders of both mitral and tricuspid valves; N40.0 Benign prostatic hyperplasia without lower urinary tract symptoms; Z79.01 Long term (current) use of anticoagulants; Z79.4 Long term (current) use of insulin; Z79.82 Long term (current) use of aspirin; Z79.899 Other long term (current) drug therapy; Z87.891 Personal history of nicotine dependence; Z86.010 Personal history of colon polyps; Z89.429 Acquired absence of other toe(s), unspecified side; Z83.3 Family history of diabetes mellitus; Z80.0 Family history of malignant neoplasm of digestive organs; Z85.3 Personal history of malignant neoplasm of breast
CPT/HCPCS: 96360; 96361 ×2; 93005 ×2; 99285; 36415; 80053 ×2; 84484; 85025 ×2; 85610; 85730; 81001; 83036; 71046; G0378 ×3

== ENCOUNTER → 2021-01-16 | Outpatient (CLI) | payer MEDICARE ==
[2021-01-16 19:10] LABS: Hemoglobin A1C 7.2 % (4.0-6.0)
== END | disposition home or self-care (01) ==
LOC: LABWHC1 07:47
PROVIDERS: ATTEND Internal Medicine
DX: E11.9 Type 2 diabetes mellitus without complications (principal)
CPT/HCPCS: 36415; 82947; 83036

== ENCOUNTER → 2021-01-16 | Outpatient (CLI) | payer MEDICARE ==
[2021-01-16 08:24] LABS: HCT 43.2 % (39.0-53.0); HGB 15.8 gm/dL (13.0-17.5); MCH 32.2 pg (25.0-35.0); MCHC 36.5 g/dL (31.0-37.0); MCV 88.1 fL (80.0-100.0); Mean Platelet Volume 7.5; Platelet Count 140 k/uL (150-450); RBC 4.91 m/uL (4.30-5.90); RDW 13.1 % (11.5-15.5); WBC 4.9 k/uL (3.8-10.6)
[2021-01-16 08:32] LABS: African American GFR (CKD) >90 (>60 ml/min/1.73 sqM); Anion Gap 8 mmol/L; Blood Urea Nitrogen 15 mg/dL (9-20); Carbon Dioxide 29 mmol/L (22-30); Chloride 101 mmol/L (98-107); Non-African American GFR(CKD) 86 (>60 ml/min/1.73 sqM); Potassium 3.9 mmol/L (3.5-5.1); Sodium 138 mmol/L (137-145)
== END | disposition home or self-care (01) ==
LOC: LABPAT 07:44
PROVIDERS: ATTEND Internal Medicine Clinical Cardiac Electrophysiology
DX: Z01.812 Encounter for preprocedural laboratory examination (principal); I48.92 Unspecified atrial flutter
CPT/HCPCS: 80051; 82565; 84520; 85027

== ENCOUNTER → 2021-05-24 | Outpatient (CLI) | payer MEDICARE | END | disposition home or self-care (01) | LOC: LABWHC1 07:15 | PROVIDERS: ATTEND Internal Medicine | DX: E11.9 Type 2 diabetes mellitus without complications (principal); E11.65 Type 2 diabetes mellitus with hyperglycemia | CPT/HCPCS: 36415; 82947; 83036 ==

== ENCOUNTER → 2021-05-24 | Outpatient (CLI) | payer MEDICARE ==
[2021-05-24 07:54] LABS: HGB 14.2 gm/dL (13.0-17.5); MCH 30.4 pg (25.0-35.0); MCHC 33.9 g/dL (31.0-37.0); MCV 89.8 fL (80.0-100.0); Mean Platelet Volume 7.7; Platelet Count 147 k/uL (150-450); RBC 4.68 m/uL (4.30-5.90); RDW 12.9 % (11.5-15.5)
[2021-05-24 08:13] LABS: African American GFR (CKD) >90 (>60 ml/min/1.73 sqM); Anion Gap 5 mmol/L; Blood Urea Nitrogen 18 mg/dL (9-20); Carbon Dioxide 30 mmol/L (22-30); Chloride 101 mmol/L (98-107); Non-African American GFR(CKD) 81 (>60 ml/min/1.73 sqM); Potassium 4.1 mmol/L (3.5-5.1); Sodium 136 mmol/L (137-145)
== END | disposition home or self-care (01) ==
LOC: LABPAT 07:13
PROVIDERS: ATTEND Internal Medicine Clinical Cardiac Electrophysiology
DX: Z01.812 Encounter for preprocedural laboratory examination (principal); I48.92 Unspecified atrial flutter
CPT/HCPCS: 80051; 82565; 84520; 85027

== ENCOUNTER 2021-06-04 11:43 | Day surgery (SDC) | payer MEDICARE ==
[2021-05-29 10:14] VITALS: BMI 42.3
[~2021-06-04 11:43] MED LIST changes: -ACETAMINOPHEN TAB 500 MG TAB PO ONE; -DEXAMETHASONE SOD PHOSPHATE 10 MG/ML 1 ML VIAL IV ONE; -GABAPENTIN 300 MG CAP PO ONE; -HYDROmorphone 0.5 MG/0.5 ML SYRINGE IVP PRN; +LACTATED RINGERS 1,000 ML IV SCH; -MELOXICAM 7.5 MG TAB PO ONE; -MIDAZOLAM 2 MG/2 ML VIAL IV PRN; -ONDANSETRON 4 MG/2 ML VIAL IVP ONE; -ROPIVACAINE 246.25 MG, EPINEPHrine 0.5 MG, KETOROLAC 30 MG, cloNIDine HCL/PF 80 MCG, WA... MISCELLANE ONE; +SODIUM CHLORIDE 0.9% 1,000 ML IV SCH; -TRANEXAMIC ACID 1,000 MG in SODIUM CHLORIDE 0.9% 100 ML IVPB ONE; -ceFAZolin 3 GM in SODIUM CHLORIDE 0.9% 100 ML IVPB ONE
[2021-06-04 12:31] LABS: Glucose,Whole Blood 256 mg/dL (75-99)
[2021-06-04] MEDS: INSULIN ASPART (NovoLOG) 100 UNIT/ML VIAL SQ SCH ×3 (12:49→22:57)
[2021-06-04] MEDS ORDERED: LIDOCAINE 1% INJ 10MG/ML (20 ML MDV) ONE (14:00)
[2021-06-04] MEDS ORDERED: HEPARIN SODIUM (1,000 UNIT/ML) 1,000 UNIT in SODIUM CHLORIDE 0.9% 1,000 ML IRRIGATION ONE (14:09)
[2021-06-04] MEDS ORDERED: LIDOCAINE 1% INJ 10MG/ML (20 ML MDV) SQ ONE (14:54)
[2021-06-04] MEDS ORDERED: ACETAMINOPHEN TAB 325 MG TAB PO PRN (16:45)
--- NOTE | 2021-06-04 16:58 | P.HPCAR ---
History of Present Illness This is Dr. Vela dictating an H/P on this patient The patient was interviewed and examined IMPRESSION / ASSESSMENT: Persistent atrial flutter, typical with rapid ventricular response Essential hypertension Type 2 diabetes Morbid obesity BMI 42 Obstructive sleep apnea Admitted to the hospital with a syncopal spell with documented typical atrial flutter with RVR No evidence for bradycardia PLAN: Proceed with atrial flutter ablation diagnostic EP study for syncope Maximize statins, increase atorvastatin to 20 mg by mouth daily Blood pressure monitoring HPI Patient has not had any further syncopal spells He denies any chest discomfort dizziness lightheadedness or palpitations He remains atrial flutter with a resting heart rates between 90 beats a minute No fever chills cough No dizziness no shortness of breath at rest nor orthopnea PND ROS: No fever chills or rigors, no cough, phlegm or expectoration, no nausea, vomiting or diarrhea, no hematuria, dysuria, no musculoskeletal complaints, no strokes or seizures, no skin lesions. EXAMINATION: Afebrile 97.9F blood pressure 159/92 mmHg Pulse rate in the 90s to 100 100s at rest irregular Breath sounds are clear no rhonchi no crackles Heart sounds S1 and S2 are normal no murmurs, elevated heart rate REVIEW OF LABS, ECG & MEDICAL DATA Sodium 136, potassium 4.1, BUN 18 and creatinine 0.97 Hemoglobin A1c 9.1 TSH in September 2020 was 2.03 LDL last year was 86, triglycerides 106, total cholesterol 150 and HDL 40 This was on atorvastatin 20 mg by mouth daily Physical Exam Vitals: Vital Signs Temp Pulse Resp BP Pulse Ox 06/04/21 12:37 97.9 F 93 18 159/93 97 Intake and Output 06/04/21 06/04/21 06/04/21 06:59 14:59 22:59 Intake Total 1244 Balance 1244 Intake: IV 1244 Other: Weight 148.8 kg Past Medical History Past Medical History: Diabetes Mellitus, Hyperlipidemia, Hypertension, Sleep Apnea/CPAP/BIPAP Additional Past Medical History / Comment(s): PAST HISTORY OF osteomyelitis and diabetic foot ulcers bilateral feet. 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 toe amputation, bilateral surgery for achilles lengthening, R foot callus removed, bilateral feet and leg debridements, L knee arthroscopy, colonoscopy/benign polypectomy, PICC line INSERTED AND REMOVED , CATARACTS REMOVED- BILATERAL , CARPAL TUNNEL RELEASE RIGHT WRIST , TOTAL LEFT KNEE Past Anesthesia/Blood Transfusion Reactions: No Reported Reaction Smoking Status: Former smoker - Past Family History Mother History Unknown: Yes Family Medical History: Cancer Additional Family Medical History / Comment(s): breast and colon ca Father History Unknown: Yes Family Medical History: Cancer Additional Family Medical History / Comment(s): stomach Physical Examination Vital Signs Temp Pulse Resp BP Pulse Ox 06/04/21 12:37 97.9 F 93 18 159/93 97 Intake and Output 06/04/21 06/04/21 06/04/21 06:59 14:59 22:59 Intake Total 1244 Balance 1244 Intake: IV 1244 Other: Weight 148.8 kg Results Current Medications Generic Name Dose Route Start Last Admin Trade Name Freq PRN Reason Stop Dose Admin Acetaminophen 650 mg 06/04/21 16:45 Acetaminophen Tab 325 Mg Tab PO 07/04/21 16:46 Q6HR PRN Mild Pain Acetaminophen 1,000 mg/ IV 100 mls @ 400 mls/hr 06/04/21 16:45 Solution IVPB 06/04/21 16:59 ONCE ONE Insulin Aspart 0 unit 06/04/21 17:30 06/04/21 12:49 Insulin Aspart (Novolog) 100 Unit/Ml Vial SQ 07/04/21 17:31 3 unit ACHS NAWAF Administration Protocol Sodium Chloride 12 ml 06/04/21 21:00 Sodium Chloride 0.9% Flush 10 Ml Syringe IV 07/04/21 21:01 Q12HR NAWAF Intake and Output 06/04/21 06/04/21 06/04/21 06:59 14:59 22:59 Intake Total 1244 Balance 1244 Intake: IV 1244 Other: Weight 148.8 kg Patient Weight 06/05/21 06:59 Weight 148.8 kg
--- NOTE | 2021-06-04 17:01 | P.PRLE ---
RE: Ian Hsieh Dear Dr. Karli Hsieh underwent successful atrial flutter ablation with demonstrated complete bidirectional block He will continue Xarelto lifelong We are not able to induce any other arrhythmias during EP study His last hemoglobin A1c this month was greater than 9 and he will follow with you for initiation of SGLT2 inhibitors However his blood pressure may still be elevated I will watch him overnight to see if we need to maximize erasmo inhibitors His LDL was 86 mg a deciliter last year on atorvastatin and I would increase the dose of Lipitor to 20 mg by mouth daily Thank you for entrusting me with the care of the patient Warm regards Sincerely Dayday Vela
--- NOTE | 2021-06-04 17:18 | P.EPPROC ---
- EP Procedure Note Electrophysiology Procedure Note: Diagnosis Persistent, typical atrial flutter with RVR 1 episode of syncope associated with it Result Successful atrial flutter ablation with confirmed bidirectional block with differential pacing No other inducible arrhythmias Normal AH and HV intervals Abnormal sinus node function with prolonged sinus node recovery times Details Patient was brought to the EP lab in a fasting state. Written informed consent was obtained prior to the procedure. Procedure performed under general anesthesia. Venous sheaths placed in the right left femoral veins. Diagnostic catheters placed in the high right atrium His bundle area right ventricle and coronary sinus Later intracardiac echo catheter and RF mapping and ablation catheter placed Patient was in tachycardia the start of the study Initial cycle length was 251 ms with concentric activation the coronary sinus poles With entrainment the tachycardia is been up with the same concentric activation but now with a cycle length of about 210 ms Associated with a subtle change in the P wave morphology in V1 However the negativity in the inferior leads persisted Likely lower loop reentry This was also entrain successful from the chemo tricuspid isthmus He reverted back to the atrial tachycardia cycle length of 251 ms which is also entrained Cavo tricuspid isthmus dependency confirmed for both arrhythmias RF ablation performed in the cavo tricuspid isthmus During RF ablation tachycardia terminated Complete line of block was made Differential pacing performed Complete bidirectional block confirmed 4 diagnoses EP study performed during sinus rhythm Sinus cycle length 1000 ms, HI interval 168 ms, QRS 95 and QT 457 ms AH 76 and HV 43 ms VA Wenckebach block 800 ms Sinus recovery times prolonged Sinus node recovery times were 2017, 1784 and 1893 ms at pacing cycle lengths of 600, 500 and 400 ms Extra-stim from the high right atrium and coronary signs of double extrastimuli Burst stimulation from 400 ms down to 200 ms No SVT inducible Isuprel started wide open Street pacing performed AV node Wenckebach block 200 ms Procedures performed Compressive diagnostic EP study CS pacing and recording Programmed stimulation following Isuprel 3-D mapping intracardiac echo RF ablation
[2021-06-04] MEDS ORDERED: RIVAROXABAN 20 MG TAB PO SCH (17:30)
[2021-06-04] MEDS: ACETAMINOPHEN IV (For NPO) 1,000 MG in EMPTY BAG 1 BAG IVPB ONE ×2 (17:35→17:50)
[2021-06-04 17:41] VITALS: RESP 16
[2021-06-04] MEDS ORDERED: INSULIN DETEMIR (LEVEMIR) 100 UNIT/ML SYR SQ SCH (21:00)
[2021-06-04] MEDS ORDERED: ATORVASTATIN 20 MG TAB PO SCH (21:00)
[2021-06-04] MEDS: metFORMIN 850 MG TAB PO SCH (21:27)
[2021-06-04] MEDS: METOPROLOL TARTRATE 25 MG TAB PO SCH (22:56)
[2021-06-05] MEDS ORDERED: INSULIN DETEMIR (LEVEMIR) 100 UNIT/ML SYR SQ SCH (06:00)
[2021-06-05 07:04] VITALS: TEMP 97.6
[2021-06-05] MEDS: metFORMIN 850 MG TAB PO SCH (08:04)
[2021-06-05] MEDS: METOPROLOL TARTRATE 25 MG TAB PO SCH (08:07)
[2021-06-05] MEDS: INSULIN ASPART (NovoLOG) 100 UNIT/ML VIAL SQ SCH ×2 (08:08)
[2021-06-05 08:48] VITALS: BP 144/78; PULSE 77
[2021-06-05] MEDS ORDERED: hydroCHLOROthiazide 12.5 MG CAP PO SCH (09:00)
[2021-06-05] MEDS ORDERED: lisinopriL 10 MG TAB PO SCH (09:00)
[2021-06-05] MEDS ORDERED: PIOGLITAZONE 15 MG TAB PO SCH (09:00)
[2021-06-05] MEDS ORDERED: ASPIRIN 81 MG PO SCH (09:00)
--- NOTE | 2021-06-05 09:55 | P.DS ---
Providers Attending physician: Dayday Vela Primary care physician: [facility] Course: Patient is doing well no chest discomfort no dizziness no lightheadedness no palpitations no shortness of breath No pain in the groins groins of healed well On examination Blood pressure 134/79 mmHg afebrile 97.6F Breath sounds are clear no rhonchi no crackles Heart sounds S1 and S2 are normal Groins of healed well no hematoma Impression Typical atrial flutter, persistent Status post successful ablation Sick Sinus Syndrome Plan Discharge home today Continue and coagulation Follow-up with primary care physician regarding diabetes management Follow-up with Dr. Vela in 1-2 weeks Plan - Discharge Summary Discharge Rx Participant: Yes New Discharge Prescriptions: Continue Vitamin E (Dl,Tocopheryl Acet) [Vitamin E (400 Iu = 180 mg)] 400 unit PO W/SUPPER Cholecalciferol [Vitamin D3 (25 Mcg = 1000 Iu)] 5,000 unit PO W/LUNCH Ascorbic Acid [Vitamin C] 1,000 mg PO DAILY hydroCHLOROthiazide [Hydrodiuril] 12.5 mg PO DAILY Insulin Glargine,Hum.rec.anlog [Lantus Solostar Pen] 10 unit SQ 0600 Aspirin [Adult Low Dose Aspirin EC] 81 mg PO DAILY Rivaroxaban [Xarelto] 20 mg PO W/SUPPER Pioglitazone [Actos] 15 mg PO DAILY tab Metoprolol Tartrate [Lopressor] 25 mg PO BID #60 tab lisinopriL [Zestril] 10 mg PO DAILY #90 tab Atorvastatin [Lipitor] 10 mg PO HS INSULIN ASPART (NovoLOG) [NovoLOG (formulary)] 5 unit SQ BID Insulin Aspart [NovoLOG Flexpen] 0 units SQ TID-W/MEALS PRN PRN Reason: ELEVATED BLOOD GLUCOSE Insulin Aspart [NovoLOG Flexpen] 15 units SQ AC-SUPPER Insulin Glargine,Hum.rec.anlog [Lantus Solostar Pen] 10 - 20 unit SQ HS L.acidoph,Paracasei, B.lactis [Probiotic] 1 cap PO DAILY metFORMIN HCL [Glucophage] 850 mg PO BID Discharge Medication List Ascorbic Acid [Vitamin C] 1,000 mg PO DAILY 10/27/14 [History] Cholecalciferol [Vitamin D3 (25 Mcg = 1000 Iu)] 5,000 unit PO W/LUNCH 10/27/14 [History] Vitamin E (Dl,Tocopheryl Acet) [Vitamin E (400 Iu = 180 mg)] 400 unit PO W/SUPPER 10/27/14 [History] Insulin Glargine,Hum.rec.anlog [Lantus Solostar Pen] 10 unit SQ 0600 12/14/16 [History] hydroCHLOROthiazide [Hydrodiuril] 12.5 mg PO DAILY 12/14/16 [History] Aspirin [Adult Low Dose Aspirin EC] 81 mg PO DAILY 01/19/20 [History] L.acidoph,Paracasei, B.lactis [Probiotic] 1 cap PO DAILY 12/14/20 [History] Rivaroxaban [Xarelto] 20 mg PO W/SUPPER 12/14/20 [History] Metoprolol Tartrate [Lopressor] 25 mg PO BID #60 tab 12/16/20 [Rx] Pioglitazone [Actos] 15 mg PO DAILY tab 12/16/20 [Rx] lisinopriL [Zestril] 10 mg PO DAILY #90 tab 12/16/20 [Rx] Atorvastatin [Lipitor] 10 mg PO HS 01/24/21 [History] INSULIN ASPART (NovoLOG) [NovoLOG (formulary)] 5 unit SQ BID 01/24/21 [History] metFORMIN HCL [Glucophage] 850 mg PO BID 01/24/21 [History] Insulin Aspart [NovoLOG Flexpen] 0 units SQ TID-W/MEALS PRN 05/29/21 [History] Insulin Aspart [NovoLOG Flexpen] 15 units SQ AC-SUPPER 05/29/21 [History] Insulin Glargine,Hum.rec.anlog [Lantus Solostar Pen] 10 - 20 unit SQ HS 05/29/21 [History] Follow up Appointment(s)/Referral(s): Dayday Vela MD [STAFF PHYSICIAN] - 1 Week (Office will call with appointment time and date.) Activity/Diet/Wound Care/Special Instructions: Post EP study - Ablation instructions 1. Keep access sites dry for 2 days. 2. No heavy lifting or straining for 2 days. 3. Avoid bending the hips repeatedly for 2 days. 4. You may go up and down stairs slowly Call if the following is noted 1. Bleeding, increasing swelling or pain at the access sites. 2. Increasing chest discomfort, especially upon taking a deep breath. 3. Increasing shortness of breath, at rest or with exertion. 4. Undue cough / phlegm 5. Difficulty or pain while swallowing. 6. Pain or change in color in the extremities. 7. Fever, chills, rigors. 8. Increasing headache or neurologic symptoms. 9. Dizziness, fainting, palpitations Continue xarelto and other cardiac medications Discharge Disposition: HOME SELF-CARE
== END 2021-06-05 10:40 | disposition home or self-care (01) ==
LOC: CATHEP 11:43 → 6NMEDSUR 16:40 → CATHEP 06-05 10:40
PROVIDERS: ATTEND Internal Medicine Clinical Cardiac Electrophysiology
DX: I48.92 Unspecified atrial flutter (principal); Z20.822 Contact with and (suspected) exposure to COVID-19
CPT/HCPCS: 93619; 87635; J2001; J1644; J0131; 93623; 93653

== ENCOUNTER → 2021-09-04 | Outpatient (CLI) | payer MEDICARE ==
[2021-09-04 16:00] LABS: African American GFR (CKD) 89.9 (60.0-200.0); Anion Gap 9.8 mmol/L (10.00-18.00); Calcium 9.1 mg/dL (8.7-10.3); Carbon Dioxide 26.2 mmol/L (20.0-27.5); Non-African American GFR(CKD) 77.5 (60.0-200.0); Potassium 4.3 mmol/L (3.5-5.5)
== END | disposition home or self-care (01) ==
LOC: LABWHC1 07:42
PROVIDERS: ATTEND Internal Medicine
DX: E11.65 Type 2 diabetes mellitus with hyperglycemia (principal)
CPT/HCPCS: 36415; 80048; 83036

== ENCOUNTER → 2022-01-14 | Outpatient (CLI) | payer MEDICARE | END | disposition home or self-care (01) | LOC: LABWHC1 07:02 | PROVIDERS: ATTEND Internal Medicine | DX: E11.65 Type 2 diabetes mellitus with hyperglycemia (principal) | CPT/HCPCS: 36415; 82947; 83036 ==

== ENCOUNTER → 2022-04-11 | Outpatient (CLI) | payer MEDICARE ==
[2022-04-11 14:37] LABS: African American GFR (CKD) 91.6 (60.0-200.0); Anion Gap 7.7 mmol/L (10.00-18.00); BUN/Creat Ratio 16.45 Ratio (12.00-20.00); Blood Urea Nitrogen 16.1 mg/dL (9.0-27.0); Calcium 9.3 mg/dL (8.7-10.3); Carbon Dioxide 28.5 mmol/L (20.0-27.5); Potassium 4.1 mmol/L (3.5-5.5)
== END | disposition home or self-care (01) ==
LOC: LABWHC1 07:55
PROVIDERS: ATTEND Internal Medicine
DX: E11.65 Type 2 diabetes mellitus with hyperglycemia (principal); E87.8 Other disorders of electrolyte and fluid balance, not elsewhere classified
CPT/HCPCS: 36415; 80048; 83036

== ENCOUNTER → 2022-09-17 | Outpatient (CLI) | payer MEDICARE ==
[2022-09-17 17:32] LABS: Basophils # (A) 0.02 X 10*3/uL (0.00-0.10); Basophils % (A) 0.4 %; Eosinophils # (A) 0.15 X 10*3/uL (0.04-0.35); Eosinophils % (A) 2.8 %; HCT 40.6 % (39.6-50.0); HGB 13.8 g/dL (13.0-17.0); Immature Grans, Automated 0.2 %; Lymphocytes # (A) 1.75 X 10*3/uL (0.90-5.00); MCH 29.7 pg (27.0-32.0); MCV 87.5 fL (80.0-97.0); Mean Platelet Volume 10.8 fL (9.5-12.2); Monocytes # (A) 0.45 X 10*3/uL (0.20-1.00); Monocytes % (A) 8.5 %; NRBC Per 100 WBC 0 /100 WBCS (0.0-0.0); Neutrophils # (A) 2.92 X 10*3/uL (1.80-7.70); Neutrophils % (A) 55.1 %; Platelet Count 153 X 10*3/uL (140-440); RBC 4.64 X 10*6/uL (4.40-5.60); RDW 12.9 % (11.5-14.5)
[2022-09-17 17:47] LABS: Erythrocyte Sedimentation Rate 10 mm/Hr (0-20)
[2022-09-17 19:54] LABS: LDL Cholesterol,Calculated 73.6 mg/dL (0.0-131.0)
[2022-09-17 20:25] LABS: ALT 30 U/L (10-49); AST 26 U/L (14-35); African American GFR (CKD) 79.5 (60.0-200.0); Albumin/Globulin Ratio 1.69 (1.60-3.17); Alkaline Phosphatase 68 U/L (41-126); BUN/Creat Ratio 14.55 Ratio (12.00-20.00); C Reactive Protein <0.30 mg/dL (0.00-0.80); Calcium 9.3 mg/dL (8.7-10.3); Carbon Dioxide 23.6 mmol/L (20.0-27.5); Chloride 104 mmol/L (96-109); Creatine Kinase 214 U/L (35-257); Globulin 2.4 g/dL (1.6-3.3); Glucose 151 mg/dL (70-110); Magnesium 1.8 mg/dL (1.5-2.4); Non-African American GFR(CKD) 68.6 (60.0-200.0); Potassium 4.3 mmol/L (3.5-5.5); Sodium 142 mmol/L (135-145); Total Protein 6.4 g/dL (6.2-8.2)
== END | disposition home or self-care (01) ==
LOC: LABWHC1 11:33
PROVIDERS: ATTEND Internal Medicine
DX: Z00.00 Encounter for general adult medical examination without abnormal findings (principal); I10 Essential (primary) hypertension; D64.9 Anemia, unspecified; N40.0 Benign prostatic hyperplasia without lower urinary tract symptoms; E78.5 Hyperlipidemia, unspecified; E11.65 Type 2 diabetes mellitus with hyperglycemia; E66.9 Obesity, unspecified; E55.9 Vitamin D deficiency, unspecified; E03.9 Hypothyroidism, unspecified
CPT/HCPCS: 36415; 80053; 80061; 82043; 82306; 82550; 82570; 83036; 83735; 84100; 84153; 84443; 85025; 85652; 86140

== ENCOUNTER → 2023-01-23 | Outpatient (CLI) | payer MEDICARE ==
[2023-01-23 16:12] LABS: ALT 26 U/L (10-49); AST 25 U/L (14-35); Blood Urea Nitrogen 16.5 mg/dL (9.0-27.0); Calcium 9.2 mg/dL (8.7-10.3); Carbon Dioxide 26.5 mmol/L (21.6-31.8); Chloride 103 mmol/L (96-109); Glucose 184 mg/dL (70-110); Potassium 4.1 mmol/L (3.5-5.5); Sodium 140 mmol/L (135-145)
== END | disposition home or self-care (01) ==
LOC: LABWHC1 09:35
PROVIDERS: ATTEND Internal Medicine
DX: E11.65 Type 2 diabetes mellitus with hyperglycemia (principal); E87.8 Other disorders of electrolyte and fluid balance, not elsewhere classified
CPT/HCPCS: 36415; 80048; 83036; 84450; 84460

== ENCOUNTER → 2023-04-28 | Outpatient (CLI) | payer MEDICARE | END | disposition home or self-care (01) | LOC: LABWHC1 06:46 | PROVIDERS: ATTEND Internal Medicine | DX: E11.65 Type 2 diabetes mellitus with hyperglycemia (principal) | CPT/HCPCS: 36415; 82947; 83036 ==

== ENCOUNTER → 2023-10-02 | Outpatient (CLI) | payer BC, MEDICARE ==
[2023-10-02 15:02] LABS: Basophils # (A) 0.02 X 10*3/uL (0.00-0.10); Basophils % (A) 0.5 %; Eosinophils # (A) 0.16 X 10*3/uL (0.04-0.35); Eosinophils % (A) 4.4 %; HCT 44.3 % (39.6-50.0); HGB 14.5 g/dL (13.0-17.0); Lymphocytes % (A) 35.7 %; MCH 28.3 pg (27.0-32.0); MCHC 32.7 g/dL (32.0-37.0); MCV 86.4 FL (80.0-97.0); Mean Platelet Volume 10.6 FL (9.5-12.2); Monocytes # (A) 0.35 X 10*3/uL (0.20-1.00); Monocytes % (A) 9.6 %; NRBC Per 100 WBC 0 X 10*3/uL (0.00-0.01); Neutrophils % (A) 49.5 %; Platelet Count 154 X 10*3/uL (140-440); RBC 5.13 X 10*6/uL (4.40-5.60); RDW 13.1 % (11.5-14.5); WBC 3.64 X 10*3/uL (4.50-10.00)
[2023-10-02 15:32] LABS: % Iron Saturation 18.67 (15.00-50.00); ALT 22 U/L (10-49); AST 27 U/L (14-35); Albumin/Globulin Ratio 1.54 Ratio (1.60-3.17); Alkaline Phosphatase 72 U/L (41-126); BUN/Creat Ratio 15.92 Ratio (12.00-20.00); Blood Urea Nitrogen 19.1 mg/dL (9.0-27.0); C Reactive Protein <0.30 mg/dL (0.00-0.80); Calcium 9.5 mg/dL (8.7-10.3); Carbon Dioxide 26.9 mmol/L (21.6-31.8); Chloride 103 mmol/L (96-109); Chol/HDL Ratio 3.92 Ratio; Globulin 2.6 g/dL (1.6-3.3); Glucose 157 mg/dL (70-110); Iron 70 UG/DL (65-175); LDL Cholesterol,Calculated 73.2 mg/dL (0.0-131.0); Potassium 4.5 mmol/L (3.5-5.5); Sodium 141 mmol/L (135-145); Total Bilirubin 0.5 mg/dL (0.3-1.2); Total Iron Binding Capacity 375 UG/DL (228-460); Total Protein 6.6 g/dL (6.2-8.2); Uric Acid 6.2 mg/dL (3.7-8.7)
[2023-10-02 15:33] LABS: Ferritin 28.9 ng/mL (22.0-322.0); Prostate Specific Antigen 5.14 ng/mL (0.000-4.500); T4, Free (Free Thyroxine) 1.13 ng/dL (0.80-1.80)
[2023-10-02 15:40] LABS: Erythrocyte Sedimentation Rate 8 mm/Hr (0-20)
[2023-10-02 19:22] LABS: Creatine Kinase 300 U/L (35-257); Phosphorus 3.1 mg/dL (2.4-5.1)
== END | disposition home or self-care (01) ==
LOC: LABWHC1 08:45
PROVIDERS: ATTEND Internal Medicine
DX: Z00.00 Encounter for general adult medical examination without abnormal findings (principal); I12.9 Hypertensive chronic kidney disease with stage 1 through stage 4 chronic kidney disease, or unspecified chronic kidney disease; N40.0 Benign prostatic hyperplasia without lower urinary tract symptoms; E87.8 Other disorders of electrolyte and fluid balance, not elsewhere classified; M10.9 Gout, unspecified; E78.5 Hyperlipidemia, unspecified; E21.3 Hyperparathyroidism, unspecified; E11.65 Type 2 diabetes mellitus with hyperglycemia; E03.9 Hypothyroidism, unspecified; E66.9 Obesity, unspecified; E55.9 Vitamin D deficiency, unspecified; E11.22 Type 2 diabetes mellitus with diabetic chronic kidney disease; N18.30 Chronic kidney disease, stage 3 unspecified; D63.1 Anemia in chronic kidney disease
CPT/HCPCS: 36415; 80053; 80061; 82306; 82550; 82728; 83036; 83540; 83550; 83735; 83970; 84100; 84153; 84439; 84443; 84550; 85025; 85652; 86140

== ENCOUNTER → 2024-02-17 | Outpatient (CLI) | payer MEDICARE ==
[2024-02-17 15:41] LABS: BUN/Creat Ratio 15.22 Ratio (12.00-20.00); Blood Urea Nitrogen 13.7 mg/dL (9.0-27.0); Calcium 9.2 mg/dL (8.7-10.3); Carbon Dioxide 28.2 mmol/L (21.6-31.8); Chloride 102 mmol/L (96-109); Glucose 159 mg/dL (70-110); Potassium 4.2 mmol/L (3.5-5.5); Sodium 141 mmol/L (135-145)
== END | disposition home or self-care (01) ==
LOC: LABWHC1 08:15
PROVIDERS: ATTEND Internal Medicine
CPT/HCPCS: 36415; 80048; 83036

== ENCOUNTER → 2024-04-06 | Outpatient (CLI) | payer BC, MEDICARE ==
[2024-04-06 16:09] LABS: BUN/Creat Ratio 14.82 Ratio (12.00-20.00); Blood Urea Nitrogen 16.3 mg/dL (9.0-27.0); Carbon Dioxide 26.3 mmol/L (21.6-31.8); Chloride 103 mmol/L (96-109); Glucose 153 mg/dL (70-110); Potassium 4.6 mmol/L (3.5-5.5); Sodium 137 mmol/L (135-145)
== END | disposition home or self-care (01) ==
LOC: LABWHC1 08:52
PROVIDERS: ATTEND Internal Medicine
DX: E11.9 Type 2 diabetes mellitus without complications (principal)
CPT/HCPCS: 36415; 80048